=== PATIENT | female | born 1950 | race Caucasian/White ===

== ENCOUNTER → 2017-04-23 | Outpatient (CLI) | payer MEDICARE, OTHER ==
[2017-04-23 15:50] LABS: Sodium 131 mmol/L (137-145)
== END | disposition home or self-care (01) ==
LOC: LABWHC1 15:04
PROVIDERS: ATTEND Family Medicine
DX: R89.9 Unspecified abnormal finding in specimens from other organs, systems and tissues (principal)
CPT/HCPCS: 36415; 83930; 84295

== ENCOUNTER → 2017-05-04 | Outpatient (CLI) | payer MEDICARE, OTHER ==
[2017-05-04 14:44] LABS: Anion Gap 8 mmol/L; Blood Urea Nitrogen 16 mg/dL (7-17); Calcium 9.3 mg/dL (8.4-10.2); Carbon Dioxide 25 mmol/L (22-30); Chloride 98 mmol/L (98-107); Glucose 104 mg/dL (74-99); Non-African American GFR(MDRD) >60 (>60 ml/min/1.73 sqM); Sodium 131 mmol/L (137-145)
== END | disposition home or self-care (01) ==
LOC: LABWHC1 13:59
PROVIDERS: ATTEND Physician Assistant
DX: E87.1 Hypo-osmolality and hyponatremia (principal)
CPT/HCPCS: 36415; 80048

== ENCOUNTER → 2017-06-18 | Outpatient (CLI) | payer MEDICARE, OTHER ==
--- NOTE | 2017-06-22 08:17 | MM ---
Reason for exam: screening (asymptomatic). Last mammogram was performed 20 years ago. History: Patient is postmenopausal. Took estrogen for 10 years. Physical Findings: Nurse did not find any significant physical abnormalities on exam. MG 3D Screening Mammo W/Cad Bilateral CC and MLO view(s) were taken. Prior study comparison: June 01, 2016, mammogram. September 06, 2014, mammogram. The breast tissue is heterogeneously dense. This may lower the sensitivity of mammography. Previous mammotome biopsy in the left breast x 2. There is chronic nodularity in the left breast measuring 1.6cm at 8-9 o'clock. Some new increasing subtle grouped calcifications superior right breast. ASSESSMENT: Incomplete: need additional imaging evaluation, BI-RAD 0 RECOMMENDATION: Special view mammogram of the right breast. If lesion persists on supplemental views, image directed ultrasound is recommended. [facility] will attempt to contact patient to return for supplemental views and ultrasound if indicated.
== END | disposition home or self-care (01) ==
LOC: RADMAMWWP 14:54
PROVIDERS: ATTEND Obstetrics & Gynecology
DX: Z22.1 Carrier of other intestinal infectious diseases (principal)
CPT/HCPCS: 77063; G0202

== ENCOUNTER → 2017-09-07 | Outpatient (CLI) | payer MEDICARE, OTHER ==
[2017-09-07 10:15] LABS: HGB 13.9 gm/dL (11.4-16.0); MCH 30.9 pg (25.0-35.0); MCV 91.1 fL (80.0-100.0); Mean Platelet Volume 6.8; Platelet Count 349 k/uL (150-450); RDW 13.1 % (11.5-15.5); WBC 4.7 k/uL (3.8-10.6)
[2017-09-07 10:29] LABS: ALT 29 U/L (9-52); AST 31 U/L (14-36); Anion Gap 9 mmol/L; Blood Urea Nitrogen 15 mg/dL (7-17); Calcium 9.5 mg/dL (8.4-10.2); Carbon Dioxide 29 mmol/L (22-30); Chloride 96 mmol/L (98-107); Cholesterol 199 mg/dL (<200); Glucose 89 mg/dL (74-99); HDL Cholesterol 78 mg/dL (40-60); LDL Cholesterol,Calculated 92 mg/dL (0-99); Potassium 4.7 mmol/L (3.5-5.1); Sodium 134 mmol/L (137-145); Triglycerides 145 mg/dL (<150)
[2017-09-07 11:01] LABS: Appearance,Urine Cloudy (Clear); Bacteria,Urine Many /hpf; Bilirubin,Urine Negative (Negative); Blood,Urine Negative (Negative); Color,Urine Yellow; Glucose,Urine (UA) Negative (Negative); Ketones,Urine Negative (Negative); Leukocyte Esterase,Urine Negative (Negative); Mucus,Urine Occasional /hpf; Nitrite,Urine Negative (Negative); PH, Urine 6.5 (5.0-8.0); Protein,Urine Trace (Negative); RBC,Urine 1 /hpf (0-5); Specific Gravity,Urine 1.017 (1.001-1.035); Squamous Epithelial Cell,Urine 23 /hpf (0-4); Urobilinogen,Urine <2.0 mg/dL (<2.0); WBC,Urine 4 /hpf (0-5)
[2017-09-07 15:01] LABS: Vitamin D 25 Hydroxy 30.3 ng/mL (30.0-100.0)
[2017-09-07 15:21] LABS: Hepatitis C IgG Antibody Non-Reactive (Non-Reactive)
== END | disposition home or self-care (01) ==
LOC: LABWHC1 09:28
PROVIDERS: ATTEND Family Medicine
DX: Z00.01 Encounter for general adult medical examination with abnormal findings (principal); I10 Essential (primary) hypertension; E55.9 Vitamin D deficiency, unspecified
CPT/HCPCS: 36415; 80048; 80061; 81001; 82306; 84450; 84460; 85027; 86803

== ENCOUNTER → 2018-03-03 | Outpatient (CLI) | payer MEDICARE, OTHER | END | disposition home or self-care (01) | LOC: LABWHC1 15:13 | PROVIDERS: ATTEND Family Medicine | DX: Z53.9 Procedure and treatment not carried out, unspecified reason (principal) ==

== ENCOUNTER → 2018-03-04 | Outpatient (CLI) | payer MEDICARE, OTHER ==
[2018-03-04 13:55] LABS: ALT 30 U/L (9-52); AST 33 U/L (14-36); Albumin 4.1 g/dL (3.5-5.0); Alkaline Phosphatase 45 U/L (38-126); Anion Gap 10 mmol/L; Blood Urea Nitrogen 15 mg/dL (7-17); Calcium 9.3 mg/dL (8.4-10.2); Carbon Dioxide 23 mmol/L (22-30); Chloride 99 mmol/L (98-107); Glucose 81 mg/dL (74-99); Potassium 4.4 mmol/L (3.5-5.1); Sodium 132 mmol/L (137-145); Total Bilirubin 0.2 mg/dL (0.2-1.3); Total Protein 6.5 g/dL (6.3-8.2)
[2018-03-04 13:58] LABS: Partial Thromboplastin Time 22.9 sec (22.0-30.0); Prothrombin Time 10.2 sec (9.0-12.0)
[2018-03-04 14:09] LABS: Basophils % (A) 1 %; Eosinophils # (A) 0.3 k/uL (0-0.7); Eosinophils % (A) 5 %; HGB 12.8 gm/dL (11.4-16.0); Lymphocytes # (A) 1.4 k/uL (1.0-4.8); Lymphocytes % (A) 25 %; MCH 31.1 pg (25.0-35.0); MCHC 34.5 g/dL (31.0-37.0); MCV 90.1 fL (80.0-100.0); Mean Platelet Volume 7.2; Monocytes # (A) 0.3 k/uL (0-1.0); Monocytes % (A) 6 %; Neutrophils # (A) 3.4 k/uL (1.3-7.7); Neutrophils % (A) 62 %; Platelet Count 359 k/uL (150-450); RBC 4.11 m/uL (3.80-5.40); RDW 12.6 % (11.5-15.5); WBC 5.6 k/uL (3.8-10.6)
--- NOTE | 2018-03-04 14:22 | XR ---
EXAMINATION TYPE: XR chest 2V DATE OF EXAM: 03/04/2018 COMPARISON: NONE TECHNIQUE: PA and lateral views submitted. HISTORY: Preop lumbar surgery FINDINGS: The lungs are clear and there is no pneumothorax, pleural effusion, or focal pneumonia. No overt valeri lure. Arthropathy of the shoulders. Hypertrophic and degenerative change of the spine noted. IMPRESSION: 1. No acute process.
[2018-03-04 15:05] LABS: Appearance,Urine Cloudy (Clear); Bacteria,Urine Occasional /hpf; Bilirubin,Urine Negative (Negative); Blood,Urine Negative (Negative); Color,Urine Dark Yellow; Glucose,Urine (UA) Negative (Negative); Ketones,Urine Negative (Negative); Leukocyte Esterase,Urine Negative (Negative); Mucus,Urine Occasional /hpf; Nitrite,Urine Negative (Negative); Protein,Urine 1+ (Negative); RBC,Urine <1 /hpf (0-5); Specific Gravity,Urine 1.023 (1.001-1.035); Squamous Epithelial Cell,Urine 7 /hpf (0-4)
== END | disposition home or self-care (01) ==
LOC: LABWHC1 12:59
PROVIDERS: ATTEND Neurological Surgery
DX: Z01.818 Encounter for other preprocedural examination (principal); M46.1 Sacroiliitis, not elsewhere classified; I10 Essential (primary) hypertension; R06.02 Shortness of breath; R05 Cough; B95.62 Methicillin resistant Staphylococcus aureus infection as the cause of diseases classified elsewhere; R89.9 Unspecified abnormal finding in specimens from other organs, systems and tissues; Z01.812 Encounter for preprocedural laboratory examination
CPT/HCPCS: 36415; 71046; 80053; 81001; 83930; 85025; 85610; 85730; 87070

== ENCOUNTER → 2018-11-23 | Outpatient (CLI) | payer MEDICARE, OTHER ==
[2018-11-23 19:40] LABS: HGB 14.2 gm/dL (11.4-16.0); MCHC 33.7 g/dL (31.0-37.0); MCV 94.8 fL (80.0-100.0); Mean Platelet Volume 8.9; Platelet Count 356 k/uL (150-450); RBC 4.43 m/uL (3.80-5.40); RDW 13.1 % (11.5-15.5); WBC 6.9 k/uL (3.8-10.6)
[2018-11-24 10:34] LABS: Albumin 4.1 g/dL (3.80-4.90); Albumin/Globulin Ratio 2.41 (1.60-3.17); Anion Gap 9.2 mmol/L (4.00-12.00); Calcium 9.2 mg/dL (8.7-10.3); Carbon Dioxide 25.8 mmol/L (21.6-31.8); Globulin 1.7 g/dL (1.6-3.3); LDL Cholesterol,Calculated 84.6 mg/dL (0.0-131.0); Potassium 4.3 mmol/L (3.5-5.5); Total Bilirubin 0.4 mg/dL (0.2-1.2); Total Protein 5.8 g/dL (6.2-8.2); VLDL Calculation 36.4 mg/dL (5.00-40.00)
== END ==
LOC: LABWHC1 09:07
PROVIDERS: ATTEND Family Medicine
DX: Z00.01 Encounter for general adult medical examination with abnormal findings (principal); E78.2 Mixed hyperlipidemia; I10 Essential (primary) hypertension; K21.9 Gastro-esophageal reflux disease without esophagitis
CPT/HCPCS: 36415; 80053; 80061; 84443; 85027

== ENCOUNTER → 2021-10-17 | Outpatient (CLI) | payer MEDICARE ==
--- NOTE | 2021-10-18 03:54 | MR ---
EXAMINATION TYPE: MR shoulder RT wo con DATE OF EXAM: 10/17/2021 COMPARISON: None HISTORY: Right shoulder pain, injury S/P fall 2 mos ago. Multiplanar multi echo imaging of the right shoulder without contrast. There is a large shoulder joint effusion. There is retraction of the supraspinatus tendon. The AC sharifa nt is intact. There is narrowing of the subacromial joint space. The subscapularis tendon is intact. The biceps tendon is intact. The glenoid fidencio appear intact. There is some atrophy of the supraspina tus muscle. Infraspinatus tendon appears intact. There is no evidence of a fracture. IMPRESSION: Large rotator cuff tear with retraction of the supraspinatus tendon. Large shoulder joint effusion an d subdeltoid effusion.
== END | disposition home or self-care (01) ==
LOC: RADMRIMAIN 17:24
PROVIDERS: ATTEND Orthopaedic Surgery
DX: S46.011A Strain of muscle(s) and tendon(s) of the rotator cuff of right shoulder, initial encounter (principal); M25.411 Effusion, right shoulder; W19.XXXA Unspecified fall, initial encounter

== ENCOUNTER 2021-11-27 09:31 | Day surgery (SDC) | payer MEDICARE, OTHER ==
[2021-11-25 13:35] VITALS: BMI 28.1
--- NOTE | 2021-11-26 14:30 | HP ---
HISTORY AND PHYSICAL DATE OF SURGERY: 11/27/2021 Roslyn Case is a 71-year-old patient seen with progressive right shoulder pain. We discussed options for treatment. She elected to proceed with arthroscopy. Consent was obtained. PAST MEDICAL HISTORY: Hypertension, hyperlipidemia. PAST SURGICAL HISTORY: Carpal tunnel surgery, knee arthroscopy, lumbar spine surgery, hysterectomy. DAILY MEDICATIONS: Amlodipine, atenolol, lisinopril. ALLERGIES: AMOXIL, CODEINE, COMPAZINE. SOCIAL HISTORY: She denies tobacco use. PHYSICAL EVALUATION OF THE RIGHT SHOULDER: Flexion is 100 degrees. Abduction is 90 degrees. External rotation is 40 degrees with pain and weakness. There is tenderness along the anterolateral acromion and rotator cuff insertion. Impingement is positive at 80 degrees. Drop-arm sign is positive. Distal neurovascular exam is intact. Radiographs of the right shoulder revealed a type 3 acromion, evidence for acromioclavicular joint osteoarthritis and cystic changes of the tuberosity. MRI of the right shoulder revealed a large retracted rotator cuff tendon tear. IMPRESSION: 1. Right shoulder impingement with large rotator cuff tendon tear. 2. Right shoulder acromioclavicular joint osteoarthritis. 3. Hypertension. PLAN: Right shoulder arthroscopy with subacromial decompression, arthroscopic rotator cuff repair, Jerome procedure and debridement. MMODL / IJN: [id number] /
[~2021-11-27 09:31] MED LIST: DEXAMETHASONE SOD PHOSPHATE 4 MG/ML 1 ML VIAL IV ONE; IV FLUID CONTINUATION 1,000 ML IV ONE; LACTATED RINGERS 1,000 ML IV SCH; LIDOCAINE 1% (10MG/ML) FOR IV START INTRADERMA PRN; ONDANSETRON 4 MG/2 ML VIAL IVP ONE; ONDANSETRON 4 MG/2 ML VIAL IVP PRN
[2021-11-27] MEDS ORDERED: MIDAZOLAM 2 MG/2 ML VIAL IVP ONE (10:48)
[2021-11-27] MEDS ORDERED: LIDOCAINE 2% INJ 20 MG/ML (2 ML VIAL) ONE (12:17)
[2021-11-27] MEDS ORDERED: ROPIVACAINE 5 MG/ML 30 ML VIAL ONE (12:17)
[2021-11-27] MEDS ORDERED: SUCCINYLCHOLINE CHLORIDE 100 MG/5 ML SYR IV ONE (12:17)
[2021-11-27] MEDS ORDERED: PROPOFOL 10 MG/ML 20 ML VIAL IV ONE (12:17)
[2021-11-27] MEDS ORDERED: DEXAMETHASONE SOD PHOSPHATE 4 MG/ML 1 ML VIAL ONE (12:17)
[2021-11-27] MEDS ORDERED: fentaNYL (PF) 50 MCG/ML 2 ML AMP ONE (12:17)
--- NOTE | 2021-11-27 14:03 | P.OP ---
Date of Procedure: 11/27/21 Preoperative Diagnosis: Right shoulder impingement Postoperative Diagnosis: 1. Right shoulder massive retracted rotator cuff tendon tear 2. Right shoulder impingement 3. Right shoulder partial long head biceps tendon tear Procedure(s) Performed: 1. Right shoulder arthroscopic rotator cuff repair 2. Right shoulder arthroscopic subacromial decompression 3. Right shoulder arthroscopic biceps tenotomy Implants: 24.75 Arthrex swivel lock anchors Anesthesia: GETA, regional (Interscalene block) Surgeon: Gerardo Cortes Spooler Operator Automatic #1: Tyler Ramos Estimated Blood Loss (ml): 11 Pathology: none sent Condition: stable Disposition: PACU Indications for Procedure: 71-year-old patient seen with progressive right shoulder pain. After treatment options were discussed, she elected to proceed with arthroscopy. Operative Findings: see description of procedure Description of Procedure: Patient underwent an interscalene block by department of anesthesia. The patie nt was then taken to the operative suite. The patient underwent a general anesthetic by the department of anesthesia. The patient was placed into a lateral position and secured. There was appropriate padding of the bony prominence. Right shoulder was then prepped and draped in normal sterile orthopedic fashion. We placed the extremity in 10 pounds of longitudinal traction. A posterior incision was now made for a posterior working portal site. The trocar and cannula were inserted into the glenohumeral joint. Arthroscopy was initiated. Spinal needle was now inserted anteriorly, to ascertain the anterior working portal site. An incision was now made in that area, a trocar was inserted followed by a probe. There was significant partial tearing of the long head biceps tendon. There were grade 1 chondromalacia changes about the glenohumeral joint with no tears. The labrum was stable. I performed an arthroscopic biceps tenotomy. I again probe the labrum and it was stable. Instruments were now removed from the glenohumeral joint. Utilizing the posterior working portal site, the trocar and cannula were inserted into the subacromial space. Arthroscopy initiated. I made an incision 2 fingerbreadths lateral to the acromion. I introduced my trocar followed by my ArthroCare ablator. I now began ablating thick subacromial bursal tissue, which exposed the undersurface of the anterior acromion. There was diminished subacromial space. There was a very prominent anterior acromion. A motorized bur was introduced and a subacromial decompression was performed. I also excised some osteophytes off the inferior aspect of the distal clavicle. The AC joint was visualized and noted to be moderately arthritic. I did not think enough toward a Jerome procedure. I now turned my attention to the rotator cuff tendon tear. There was a massive retracted tear. Was retracted to the level of the glenoid. I could not reapproximate the tendon tear. I now began meticulously performing a release along the anterior middle and posterior aspects. I was able to mobilize the posterior portion of the tendon persona very difficult time mobilizing anterior portion of the tendon. At this point after spending of [place] of time mobilizing the tendon I began utilizing converging sutures anterior centrally to emerge the tendon. After utilizing 4 sutures I did converging tendon enough to barely pull the tendon along the anterior footprint. Posteriorly I could pull the tendon over the footprint. I now abraded the footprint with a motorized bur. With the assistance of Zaid BELTRÁN passed 2 everted mattress sutures anteriorly through good bites of rotator cuff tendon and then 2 everted mattress sutures posteriorly through good bites of rotator cuff tendon. I created an bakery worker conveyor line portal site off the lateral acromion. A partial anteriorly for insertion of an anchor. The 4 anterior limbs of suture were passed through the eyelet of a 4.75 Arthrex swivel lock anchor. I placed that eyelet into our pre-punch hole. I held it in position while Zaid BELTRÁN tensioned all 4 suture limbs and deployed the anchor with good fixation noted. I now placed a hole in the posterior aspect of the footprint for insertion of an anchor. I passed all 4 limbs of suture through the eyelet of a 4.75 Arthrex swivel lock anchor. I placed the eyelet into our pre-punch hole. I held that in position while Zaid BELTRÁN tensioned all 4 suture limbs and deployed the anchor with good fixation noted. All residual suture limbs were clipped. Posteriorly we had good compression along the nikki tprint. Anteriorly was just at the articular margin. The repair was stable. Instruments now removed from the portal sites. All portal sites were approximated with nylon suture. Sterile dressings were applied followed by a shoulder immobilizer. Tyler BELTRÁN assisted in this complex case. The patient was awakened, transferred to a bed, and taken to recovery in stable condition. The patient's prognosis is guarded given this massive tear.
[2021-11-27 14:05] VITALS: TEMP 97.2
[2021-11-27] MEDS: HYDROmorphone 0.5 MG/0.5 ML SYRINGE IVP PRN ×3 (14:25→14:48)
[2021-11-27 14:33] VITALS: RESP 16
[2021-11-27 16:20] VITALS: BP 116/72; PULSE 72
--- NOTE | 2021-11-27 19:21 | P.ANPRN ---
Procedure Note - Anesthesia - Nerve Block Performed Right Interscalene Single Time Out Performed: Yes Date of Procedure: 11/27/21 Procedure Start Time: 10:47 Procedure Stop Time: 10:51 Location of Patient: PreOp Indication: Acute Post-Operative Pain, Requested by Surgeon Sedation Type: Sedate with meaningful contact maintained Preparation: Sterile Prep Position: Supine Needle Types: Pajunk Needle Gauge: 21 Ultrasound used to visualize needle placement: Yes Ultrasound used to observe medication spread: Yes Blood Aspirated: No Pain Paresthesia on Injection Noted: No Resistance on Injection: Normal Image Stored and Saved: Yes Events: Uneventful and Well Tolerated (Ropivacaine 0.5% 20 mL plus dexamethasone 4 mg)
== END 2021-11-27 17:20 | disposition home or self-care (01) ==
LOC: OR 09:31
PROVIDERS: ATTEND Orthopaedic Surgery
DX: M75.111 Incomplete rotator cuff tear or rupture of right shoulder, not specified as traumatic (principal); M25.811 Other specified joint disorders, right shoulder; S46.111A Strain of muscle, fascia and tendon of long head of biceps, right arm, initial encounter; X58.XXXA Exposure to other specified factors, initial encounter; M94.211 Chondromalacia, right shoulder; M25.711 Osteophyte, right shoulder; I10 Essential (primary) hypertension; F32.A Depression, unspecified; K21.9 Gastro-esophageal reflux disease without esophagitis; Z98.891 History of uterine scar from previous surgery; Z98.890 Other specified postprocedural states; Z90.710 Acquired absence of both cervix and uterus; Z79.82 Long term (current) use of aspirin; Z79.899 Other long term (current) drug therapy; Z88.5 Allergy status to narcotic agent; Z88.0 Allergy status to penicillin; Z88.8 Allergy status to other drugs, medicaments and biological substances
CPT/HCPCS: 64415; 76942; 29826; 29827; C1713 ×2; C1894; J2250; J1100; J2405; J0690; J3010; J2795; J0330; J2704; J1170; J2001

== ENCOUNTER → 2022-03-06 | Outpatient (CLI) | payer MEDICARE, OTHER | END | disposition home or self-care (01) | LOC: LABPAT 15:09 | PROVIDERS: ATTEND Orthopaedic Surgery | DX: Z01.812 Encounter for preprocedural laboratory examination (principal); Z22.322 Carrier or suspected carrier of Methicillin resistant Staphylococcus aureus; M12.811 Other specific arthropathies, not elsewhere classified, right shoulder | CPT/HCPCS: 87070 ==

== ENCOUNTER 2022-03-31 10:50 | Day surgery (SDC) | payer MEDICARE, OTHER ==
--- NOTE | 2022-03-26 08:29 | P.HPOR ---
History of Present Illness H&P Date: 03/26/22 Chief Complaint: Right shoulder pain and weakness The patient is a 71-year-old [id number] retired female who presents with progressive right shoulder pain for the past year. She had undergone attempted rotator cuff repair in October 2021. She's having pain with any attempted overhead use and at night. She's tried rehabilitation along with medications with minimal relief. Review of Systems As per HPI Past Medical History Past Medical History: Hypertension, Osteoarthritis (OA) Additional Past Medical History / Comment(s): Diverticulitis, back problems, allergies, heartburn with certain foods, insomnia. History of Any Multi-Drug Resistant Organisms: None Reported Past Surgical History: Back Surgery, Section, Hysterectomy, Orthopedic Surgery, Tonsillectomy, Tubal Ligation Additional Past Surgical History / Comment(s): Bilateral carpal tunnel surgery, left breast benign biopsy X2, left knee arthroscopy. Right arthroscopic rotator cuff repair Past Anesthesia/Blood Transfusion Reactions: Postoperative Nausea & Vomiting (PONV) Additional Past Anesthesia/Blood Transfusion Reaction / Comment(s): "Sister slow to wake up." Past Psychological History: Depression Additional Psychological History / Comment(s): Mild depression. Smoking Status: Never smoker Past Alcohol Use History: None Reported Past Drug Use History: None Reported - Past Family History Sister(s) Family Medical History: Cancer Medications and Allergies Home Medications Medication Instructions Recorded Confirmed Type ALPRAZolam [Xanax] 0.5 tab PO DIRECTED PRN 07/12/17 11/27/21 History Aspirin 325 mg PO DAILY 07/12/17 11/25/21 History Betamethasone Dipropionate 1 applic TOPICAL DAILY PRN 07/12/17 11/27/21 History [Betamethasone Dipropionate 0.05%] Cyanocobalamin [Vitamin B-12] 500 mcg PO DAILY 07/12/17 11/25/21 History Cyclobenzaprine [Flexeril] 5 mg PO HS 07/12/17 11/27/21 History Ibuprofen [Motrin] 800 mg PO Q8HR PRN 07/12/17 11/25/21 History Ipratropium Hammond [Ipratropium 2 sprays PO DAILY PRN 07/12/17 11/27/21 History Hammond 0.03%] Multivitamins, Thera [Multivitamin 1 each PO DAILY 07/12/17 11/25/21 History (formulary)] Vits A,C,E/Lutein/Minerals 1 each PO DAILY 07/12/17 11/25/21 History [Ocuvite with Lutein Tablet] amLODIPine BESYLATE [Norvasc] 5 mg PO HS 07/12/17 11/27/21 History atenoloL [Tenormin] 50 mg PO BID 07/12/17 11/27/21 History calcium polycarbophiL [Fibercon] 625 mg PO DAILY 07/12/17 11/27/21 History diphenhydrAMINE [Benadryl] 25 mg PO HS PRN 07/12/17 11/27/21 History estradioL [Estrace] 1 mg PO Q72H 07/12/17 11/27/21 History lisinopriL [Zestril] 20 mg PO QAM 07/12/17 11/27/21 History Calcium Carbonate [Tums] 500 mg PO DIRECTED PRN 11/25/21 11/27/21 History Cholecalciferol [Vitamin D3 (25 50 mcg PO HS 11/25/21 11/25/21 History Mcg = 1000 Iu)] Melatonin [Melatonin ER] 10 mg PO HS 11/25/21 11/27/21 History HYDROcodone/APAP 7.5-325MG [[place] 1 each PO Q6HR PRN #28 tab 11/27/21 Rx 7.5] Allergies Allergy/AdvReac Type Severity Reaction Status Date / Time amoxicillin Allergy Rash/Hives Verified 11/27/21 09:57 codeine Allergy Unknown Verified 11/27/21 09:57 prochlorperazine Allergy Unknown Verified 11/27/21 09:57 [From Compazine] Physical Examination - Shoulder right Appearance: swelling Effusion grade: grade 1 Tenderness with palpation: anterior Pain: with abduction ROM: abduction: 60 degrees ROM: forward flexion: 60 degrees ROM: internal rotation: lower lumbar ROM: external rotation: 10 degrees Strength: abduction: 3/5 Strength: forward flexion: 3/5 Tests: internal impingement tests: positive Results The patient is well-developed well-nourished female proximally 4 foot 9, 130 pounds of mesomorphic habitus. HEENT exam is nonfocal. Neck is supple. Her distal neurovascular appears intact in the right upper extremity. - Diagnostic results Shoulder x-ray: image reviewed (3 views of the right shoulder obtained in the office show glenohumeral joint space narrowing along with diminished humeral head to acromion distance. An anchor is noted to be displaced laterally.) Assessment and Plan Assessment: Retracted right large rotator cuff tear with arthropathy History of right arthroscopic rotator cuff repair with re-tear Plan: I talked to the patient at length regarding her condition along with treatment options. At this point she's quite symptomatic and limited because of pain and weakness. After thorough discussion she opted to proceed with surgery. We'll plan to proceed with a right reverse total shoulder arthroplasty. Risks and benefits were discussed at length in layman's terms. Time with Patient: Less than 30
[~2022-03-31 10:50] MED LIST changes: +ACETAMINOPHEN TAB 500 MG TAB PO PRN; -IV FLUID CONTINUATION 1,000 ML IV ONE; -LACTATED RINGERS 1,000 ML IV SCH; -LIDOCAINE 1% (10MG/ML) FOR IV START INTRADERMA PRN; +MELOXICAM 7.5 MG TAB PO PRN; +MIDAZOLAM 2 MG/2 ML VIAL IV PRN; -ONDANSETRON 4 MG/2 ML VIAL IVP PRN; +TRANEXAMIC ACID IN NACL,ISO-OS 1,000 MG in SALINE 1 100ML.BAG IVPB PRN; +fentaNYL (PF) 50 MCG/ML 2 ML AMP IV PRN
[2022-03-31] MEDS: LACTATED RINGERS 1,000 ML IV SCH (11:19)
[2022-03-31] MEDS ORDERED: ACETAMINOPHEN TAB 500 MG TAB ONE (11:28)
--- NOTE | 2022-03-31 13:17 | P.ANPRN ---
Procedure Note - Anesthesia - Nerve Block Performed Right Interscalene Single Time Out Performed: Yes (1201) Date of Procedure: 03/31/22 Procedure Start Time: 12:01 Procedure Stop Time: 12:09 Location of Patient: PreOp Indication: Acute Post-Operative Pain, Dx/Pain Location (Right shoulder pain) Specifically requested for management of pain by DrMarc: Timmy Hooker Sedation Type: Sedate with meaningful contact maintained Preparation: Sterile Prep Position: Supine Catheter: None Needle Types: Pajunk Needle Gauge: 20, 21 Ultrasound used to visualize needle placement: Yes Ultrasound used to observe medication spread: Yes Injectate: 0.5% Ropivacaine (see comment for volume) (30cc and 4 mg of decadron) Blood Aspirated: No Pain Paresthesia on Injection Noted: No Resistance on Injection: Normal Image Stored and Saved: Yes Events: Uneventful and Well Tolerated
[2022-03-31] MEDS ORDERED: ROPIVACAINE 5 MG/ML 30 ML VIAL ONE (13:40)
[2022-03-31] MEDS ORDERED: ROCURONIUM 10 MG/ML (5 ML VIAL) IV ONE (13:40)
[2022-03-31] MEDS ORDERED: PROPOFOL 10 MG/ML 20 ML VIAL IV ONE (13:40)
[2022-03-31] MEDS ORDERED: SUGAMMADEX SODIUM 200 MG/2 ML SDV IV ONE (13:40)
[2022-03-31] MEDS ORDERED: fentaNYL (PF) 50 MCG/ML 2 ML AMP ONE (13:40)
[2022-03-31] MEDS ORDERED: SUCCINYLCHOLINE CHLORIDE 200 MG/10 ML VIAL IV ONE (13:40)
[2022-03-31] MEDS ORDERED: DEXAMETHASONE SOD PHOSPHATE 4 MG/ML 1 ML VIAL ONE (13:40)
[2022-03-31] MEDS ORDERED: ePHEDrine 50 MG/ML 1 ML VIAL ONE (13:40)
[2022-03-31] MEDS ORDERED: SODIUM CHLORIDE 0.9% (PF) 10 ML VIAL ONE (13:40)
[2022-03-31] MEDS ORDERED: LIDOCAINE 2% INJ 20 MG/ML (2 ML VIAL) ONE (13:40)
[2022-03-31] MEDS ORDERED: TRANEXAMIC ACID IN NACL,ISO-OS 1,000 MG/100 ML BAG ONE (13:40)
[2022-03-31] MEDS ORDERED: ceFAZolin 3,000 MG in SODIUM CHLORIDE 0.9% IRRIGATIO 3,000 ML IRRIGATION ONE (14:20)
[2022-03-31] MEDS ORDERED: HYDROcodone/APAP 5-325MG 1 EACH TAB PO PRN (15:37)
[2022-03-31] MEDS ORDERED: SENNOSIDES-DOCUSATE SODIUM 1 EACH TAB PO PRN (15:37)
[2022-03-31] MEDS ORDERED: HYDROmorphone 0.5 MG/0.5 ML SYRINGE IVP PRN ×2 (15:37)
[2022-03-31] MEDS ORDERED: LACTATED RINGERS 1,000 ML IV ONE (15:48)
--- NOTE | 2022-03-31 15:57 | P.OP ---
Date of Procedure: 03/31/22 Preoperative Diagnosis: Right rotator cuff arthropathy Postoperative Diagnosis: Same Procedure(s) Performed: Right reverse total shoulder arthroplasty Implants: Depuy Delta Xtend size 8 press-fit humeral stem, size 1 epiphysis, 38+3 articular surface, 38 mm glenosphere, standard baseplate. Anesthesia: [facility] Surgeon: Timmy Hooker Supervisor Elementary Education #1: Reymundo Cruz Estimated Blood Loss (ml): 100 Pathology: other (Humeral head) Condition: stable Disposition: PACU Indications for Procedure: The patient is a 71-year-old female presents with progressive right shoulder pain and weakness despite conservative measures. She had undergone attempted arthroscopic rotator cuff repair with persistence of her symptoms. A discussion of the risks and benefits of operative intervention versus continued conservative measures was made with patient. She opted to proceed with surgery. Operative risks to include infection, neurovascular injury, development of blood clots, fracture, instability, possible need for subsequent procedures was discussed. Informed consent was obtained. Operative Findings: As below Description of Procedure: The patient was brought to the operating room, and after induction of general anesthesia was placed in a beachchair position. The bony prominences were appropriately padded. I examined the right shoulder. The right upper extremity was prepped and draped in normal fashion. The bony outlines the coracoid process, distal clavicle, and acromion were outlined with a skin marker. A pulse centimeter deltopectoral incision was made lateral to the coracoid process. Skin was incised sharply. Subcutaneous tissues were divided bluntly. Electrocautery was used for hemostasis. The cephalic vein was identified and gently retracted laterally with the deltoid. The deltopectoral was bluntly developed. Subdeltoid adhesions were then released. The self- retaining retractor was placed. The conjoined tendon was retracted medially and the deltoid laterally. The biceps was identified. Its sheath was opened. A biceps tenotomy was performed along the remaining tendon did retract distally. Pseudocapsule was excised. A large retracted rotator cuff tear was noted involving the supraspinatus/infraspinatus/teres minor. The subscapularis was peeled off the lesser tuberosity and tagged with #2 Ethibond suture. The head was then exposed. The shoulder was dislocated. A starting hole was made in line with the humeral shaft. The canal was reamed by hand up to size 8. There was good distal chatter. The cutting guide was then placed. I planned on 20 of retroversion. The humeral head cut was then made. The bone was removed in one fragment. Residual inferomedial osteophytes were removed flush with the [place] cortical bone. Attention was then paid towards preparing the glenoid. An anterior and posterior retractors placed. The labrum was released from the 12-6 o'clock position. Remaining biceps was removed as well. A guidepin was placed in the inferior aspect of the glenoid with the guide slightly tilting inferior. The reamer was used down to a bleeding bony surface. The central peg hole was drilled. The standard baseplate was inserted with good purchase. Inferior and superior locking screws of the appropriate length were placed. Good purchase was obtained. The 38 mm glenosphere was inserted over a guidewire. This was fully seated. Care was taken to avoid any soft tissue interposition. Attention was then paid towards preparing the proximal humerus. The appropriate broach was placed and 20 of retroversion and was fully seated. An eccentric size 1 epiphyseal reamer was utilized. A size 8 stem with a size 1 epiphysis was placed and 20 of retroversion. Trial reduction was obtained with a 38 mm +3 articular surface. The shoulder was taken through range of motion. The shoulder was felt to be stable in flexion and extension with internal and external rotation. I felt there was adequate sikh of soft tissue tension judging off the conjoined tendon. The shoulder was gently dislocated. The trial components were then removed. The final size 8 press-fit stem along with a size 1 epiphysis was fully seated. There was good rotational stability. The 38 mm + 3 articular surface was impacted. The shoulder again was gently reduced and taken through range of motion. Again it was felt to be stable in all planes. Pulsatile lavage was utilized. The subscapularis was a attached to the lesser tuberosity with #2 Ethibond suture. The deltopectoral interval was closed with interrupted 2-0 Vicryl sutures. The skin was reapproximated with 3-0 subcuticular Prolene suture. Steri-Strips were applied. A sterile dressing was applied. A sling was placed. The patient was awoken from general anesthesia and transferred to recovery room in good condition. Blood loss was estimated at 100 mL. No complications were incurred. Sponge and needle counts were correct at the end the case. Reymundo BELTRÁN assisted during the major components of the case to include exposure, glenoid and humeral preparation, implantation, and closure.
--- NOTE | 2022-03-31 16:47 | XR ---
EXAMINATION TYPE: XR shoulder limited RT DATE OF EXAM: 03/31/2022 COMPARISON: 02/09/2022 HISTORY: Surgery TECHNIQUE: FINDINGS: A single view shows a right shoulder prosthesis. Components appear in good position. IMPRESSION: No complicating process seen.
[2022-03-31] MEDS ORDERED: HYDROmorphone 0.5 MG/0.5 ML SYRINGE IVP ONE (17:22)
[2022-03-31] MEDS ORDERED: SODIUM CHLORIDE 0.9% 1,000 ML IV ONE (18:53)
[2022-03-31 20:17] VITALS: RESP 18
[2022-03-31] MEDS ORDERED: diphenhydrAMINE 25 MG CAP PO PRN (23:03)
--- NOTE | 2022-03-31 23:03 | P.CONS ---
History of Present Illness - Reason for Consult Consult date: 03/31/22 - History of Present Illness The patient is a 71-year-old female with a PMH of hypertension who was admitted for an elective right shoulder total arthroplasty. The patient underwent the procedure earlier today were no immediate postoperative competitions. She reported excellent control of her pain at the time of interview, rated at a 1 out of 10 at rest. She denied any additional complaints. Reports she has not having gotten out of bed as of yet and has not had a bowel movement or pass flatus. Reports compliance with her medications at home. Denied experiencing chest discomfort, shortness of breath, fever, chills, cough, nausea, vomiting, abdominal pain, diarrhea. Review of systems: Pertinent positives and negatives as discussed in HPI, a complete review of systems was performed and all other systems are negative. Physical examination: General: non toxic, no distress, appears at stated age, normal weight Derm: no unusual rashes/lesions, warm Head: atraumatic, normocephalic, symmetric Eyes: EOMI, no lid lag, anicteric sclera, pupils equal round reactive to light ENT: Nose and ears atraumatic Neck: No cervical lymphadenopathy, trachea midline, supple Mouth: no lip lesion, mucus membranes moist Cardiovascular: S1S2 reg, no murmur, positive dorsalis pedis pulse bilateral, no edema Lungs: CTA bilateral, no rhonchi, no rales, no accessory muscle use Abdominal: soft, nontender to palpation, no guarding Ext: muscle strength 5 out of 5 in all extremities grossly except the right lower extremity postsurgical, no gross muscle atrophy, no contractures, right shoulder dressing in place Neuro: CN II-XI grossly intact, no gross focal neuro deficits Psych: Alert, oriented, appropriate affect Assessment/plan Chronic conditions: Hypertension -Continue with home meds Status post right shoulder total arthroplasty -Defer management including pain control and DVT prophylaxis to the primary surgery service We appreciate this opportunity to be involved in this patient's care. We will follow the patient with you. For any further questions, please not hesitate to contact the sound inpatient team. Past Medical History Past Medical History: Hypertension, Osteoarthritis (OA) Additional Past Medical History / Comment(s): Diverticulitis, back problems, allergies, heartburn with certain foods, insomnia. History of Any Multi-Drug Resistant Organisms: None Reported Past Surgical History: Back Surgery, Section, Hysterectomy, Orthopedic Surgery, Tonsillectomy, Tubal Ligation Additional Past Surgical History / Comment(s): Bilateral carpal tunnel surgery, left breast benign biopsy X2, left knee arthroscopy. Right arthroscopic rotator cuff repair Past Anesthesia/Blood Transfusion Reactions: Postoperative Nausea & Vomiting (PONV) Additional Past Anesthesia/Blood Transfusion Reaction / Comm: "Sister slow to wake up." Past Psychological History: Depression Additional Psychological History / Comment(s): Mild depression. Smoking Status: Never smoker Past Alcohol Use History: None Reported Additional Past Alcohol Use History / Comment(s): every 3-4 years Past Drug Use History: None Reported - Past Family History Sister(s) Family Medical History: Cancer Medications and Allergies Home Medications Medication Instructions Recorded Confirmed Type Aspirin 81 mg PO DAILY 07/12/17 03/27/22 History Betamethasone Dipropionate 1 applic TOPICAL DAILY PRN 07/12/17 03/27/22 History [Betamethasone Dipropionate 0.05%] Cyanocobalamin [Vitamin B-12] 500 mcg PO DAILY 07/12/17 03/27/22 History Cyclobenzaprine [Flexeril] 5 mg PO HS 07/12/17 03/31/22 History Ibuprofen [Motrin] 800 mg PO Q8HR PRN 07/12/17 03/27/22 History Ipratropium [place] [Ipratropium 2 sprays PO DAILY PRN 07/12/17 03/31/22 History [place] 0.03%] Multivitamins, Thera [Multivitamin 1 each PO DAILY 07/12/17 03/27/22 History (formulary)] Vits A,C,E/Lutein/Minerals 1 each PO DAILY 07/12/17 03/27/22 History [Ocuvite with Lutein Tablet] amLODIPine BESYLATE [Norvasc] 5 mg PO HS 07/12/17 03/31/22 History atenoloL [Tenormin] 50 mg PO BID 07/12/17 03/31/22 History calcium polycarbophiL [Fibercon] 625 mg PO DAILY 07/12/17 03/31/22 History diphenhydrAMINE [Benadryl] 25 mg PO HS PRN 07/12/17 03/31/22 History estradioL [Estrace] 1 mg PO Q72H 07/12/17 03/31/22 History lisinopriL [Zestril] 20 mg PO QAM 07/12/17 03/31/22 History Calcium Carbonate [Tums] 500 mg PO DIRECTED PRN 11/25/21 03/31/22 History Cholecalciferol [Vitamin D3 (25 50 mcg PO HS 11/25/21 03/31/22 History Mcg = 1000 Iu)] Melatonin [Melatonin ER] 15 mg PO HS 11/25/21 03/31/22 History Calcium Carbonate [Calcium] 600 mg PO DAILY 03/27/22 03/27/22 History Cholecalciferol (Vitamin D3) 125 mcg PO DAILY 03/27/22 03/27/22 History [Vitamin D3 (125 MCG = 5,000 IU)] HYDROcodone/APAP 7.5-325MG [[place] 1 each PO Q8H PRN 03/27/22 03/31/22 History 7.5] Allergies Allergy/AdvReac Type Severity Reaction Status Date / Time amoxicillin Allergy Rash/Hives Verified 03/31/22 11:23 codeine Allergy Unknown Verified 03/31/22 11:23 prochlorperazine Allergy Unknown Verified 03/31/22 11:23 [From Compazine] Physical Exam Vitals: Vital Signs Temp Pulse Pulse Resp BP BP Pulse Ox 03/31/22 19:16 97.4 F L 85 18 111/69 91 L 03/31/22 18:15 84 16 100/61 92 L 03/31/22 17:45 69 16 98/58 93 L 03/31/22 17:40 84 16 100/59 94 L 03/31/22 17:15 73 16 114/63 94 L 03/31/22 16:43 77 16 107/55 94 L 03/31/22 16:28 72 16 96/55 92 L 03/31/22 16:13 81 16 100/56 93 L 03/31/22 15:58 97.1 F L 77 16 105/55 93 L 03/31/22 12:15 65 16 108/54 95 03/31/22 11:24 97.3 F L 69 18 140/65 93 L Intake and Output 03/31/22 03/31/22 04/01/22 14:59 22:59 06:59 Intake Total 1051 875 Output Total 100 Balance 1051 775 Intake: IV 1051 875 Output: Estimated Blood Loss 100 Other: Voiding Method Toilet Weight 55.9 kg 55.9 kg
[2022-03-31] MEDS ORDERED: MELATONIN 5 MG TABLET PO SCH (23:15)
[2022-03-31] MEDS: SODIUM CHLORIDE 0.9% 1,000 ML IV SCH (23:15)
[2022-04-01] MEDS: LACTATED RINGERS 1,000 ML IV SCH (07:02)
[2022-04-01] MEDS: HYDROcodone/APAP 5-325MG 1 EACH TAB PO PRN ×2 (07:21→12:22)
[2022-04-01] MEDS: SODIUM CHLORIDE 0.9% 1,000 ML IV SCH (07:25)
[2022-04-01] MEDS ORDERED: ASPIRIN 325 MG TAB PO SCH (09:00)
[2022-04-01] MEDS ORDERED: lisinopriL 20 MG TAB PO SCH (09:00)
[2022-04-01] MEDS ORDERED: atenoloL 50 MG TAB PO SCH (09:00)
--- NOTE | 2022-04-01 10:15 | P.DS ---
Providers Date of admission: 03/31/2022 Expected date of discharge: 04/01/22 Attending physician: Timmy Hooker Consults: 03/31/22 15:37 Consult Physician Routine Consulting Provider: Sejal Julian Consult Reason/Comments: s/p reverse right total shoulder arthroplasty Do you want consulting provider notified?: Yes Primary care physician: [facility] Course: Date of admission: 03/31/2022 Date of discharge: 04/01/2022 Admission diagnosis: Right rotator cuff arthropathy Discharge diagnosis: Same Attending physician: Dr. Hooker Surgical procedures: Reverse right total shoulder arthroplasty Brief history: Patient is a 71-year-old female with a history of right rotator cuff arthropathy. At this point patient has failed conservative treatment measures and has opted to proceed with a elective reverse right total shoulder arthroplasty. Hospital course: Details of patient's surgery can be found in operative report. Patient tolerated the procedure well and was subsequently transported to orthopedic floor. Patient's orthopeidc and medical care was provided daily. Patient had daily laboratory tests performed for evaluation of overall blood counts. Patient had daily physical therapy to include strengthening range of motion as well as education with walker ambulation. Patient was treated with aspirin for their postoperative DVT prophylaxis during their inpatient stay. Patient was noted to have a relatively uneventful postoperative course. Patient reported satisfactory pain control with oral pain medications by postoperative day 1. Patient showed satisfactory progress with physical therapy. Patient moved steadily through the program and had no difficulty meeting the goals by postoperative day 1. Given patient's otherwise satisfactory course and having met physical therapy goals, plan is to discharge patient home with health services on postoperative day on. Discharge condition/disposition: Patient will be discharged home with health services in stable condition. Discharge medications: Instructions are given on resumption of patient's normal daily medications per primary care recommendation, in addition patient will be p rescribed Tramadol 100 mg; Vistaril; Colace; patient has aspirin 325 mg at home - to take 325 mg daily x 3 weeks. Orthopedic Discharge Instructions: 1. Wound care and infection precautions, keep incision dry and covered while showering, no lotions, creams, moisturizers. No soaking, pools, hot tubs. Do not scrub over incision. 2. Non-weight bearing right upper extremity 3. Ice when necessary. Do not exceed 20 minutes per hour with ice pack. 4. Maintain right upper extremity in sling until follow up appt in office in 2 weeks 5. Pain meds and anticoagulants per prescription. 6. Pain medication has potential to cause constipation. Increase oral fluid and fiber intake. Contact primary care provider if you have not had a bowel movement within 48 hours after discharge. 7. No anti-inflammatory medication until discussed at first post operative visit, this including Motrin, Aleve, Mobic, Diclofenac 8. Follow up in office at 2 weeks postop with Zaid Ramos PA-C / Reymundo Cruz PA-C 9. Follow up with your primary care doctor 7-10 days after discharge. 10. Contact [facility] with any questions, . Keep dressing clean, dry, intact. While showering, cover dressing with Saran wrap. Keep dressing on until follow-up with in office at 2 weeks. Medications: Tramadol 100 mg; Vistaril; Colace; patient has aspirin 325 mg at home - to take 325 mg daily x 3 weeks. Assessment: Right Rotator cuff arthropathy Procedures: Reverse right total shoulder arthroplasty Patient Condition at Discharge: Good Plan - Discharge Summary Discharge Rx Participant: Yes New Discharge Prescriptions: No Action diphenhydrAMINE [Benadryl] 25 mg PO HS PRN PRN Reason: Allergic Reaction Vits A,C,E/Lutein/Minerals [Ocuvite with Lutein Tablet] 1 each PO DAILY Aspirin 81 mg PO DAILY Multivitamins, Thera [Multivitamin (formulary)] 1 each PO DAILY calcium polycarbophiL [Fibercon] 625 mg PO DAILY Cyclobenzaprine [Flexeril] 5 mg PO HS Betamethasone Dipropionate [Betamethasone Dipropionate 0.05%] 1 applic TOPICAL DAILY PRN PRN Reason: Allergy Symptoms Ipratropium [place] [Ipratropium [place] 0.03%] 2 sprays PO DAILY PRN PRN Reason: Allergy Symptoms Ibuprofen [Motrin] 800 mg PO Q8HR PRN PRN Reason: Pain estradioL [Estrace] 1 mg PO Q72H amLODIPine BESYLATE [Norvasc] 5 mg PO HS lisinopriL [Zestril] 20 mg PO QAM atenoloL [Tenormin] 50 mg PO BID Cyanocobalamin [Vitamin B-12] 500 mcg PO DAILY Cholecalciferol [Vitamin D3 (25 Mcg = 1000 Iu)] 50 mcg PO HS Calcium Carbonate [Tums] 500 mg PO DIRECTED PRN PRN Reason: Heartburn Melatonin [Melatonin ER] 15 mg PO HS Cholecalciferol (Vitamin D3) [Vitamin D3 (125 MCG = 5,000 IU)] 125 mcg PO DAILY Calcium Carbonate [Calcium] 600 mg PO DAILY HYDROcodone/APAP 7.5-325MG [[place] 7.5] 1 each PO Q8H PRN PRN Reason: Pain Discharge Medication List Aspirin 81 mg PO DAILY 07/12/17 [History] Betamethasone Dipropionate [Betamethasone Dipropionate 0.05%] 1 applic TOPICAL DAILY PRN 07/12/17 [History] Cyanocobalamin [Vitamin B-12] 500 mcg PO DAILY 07/12/17 [History] Cyclobenzaprine [Flexeril] 5 mg PO HS 07/12/17 [History] Ibuprofen [Motrin] 800 mg PO Q8HR PRN 07/12/17 [History] Ipratropium [place] [Ipratropium [place] 0.03%] 2 sprays PO DAILY PRN 07/12/17 [History] Multivitamins, Thera [Multivitamin (formulary)] 1 each PO DAILY 07/12/17 [History] Vits A,C,E/Lutein/Minerals [Ocuvite with Lutein Tablet] 1 each PO DAILY 07/12/17 [History] amLODIPine BESYLATE [Norvasc] 5 mg PO HS 07/12/17 [History] atenoloL [Tenormin] 50 mg PO BID 07/12/17 [History] calcium polycarbophiL [Fibercon] 625 mg PO DAILY 07/12/17 [History] diphenhydrAMINE [Benadryl] 25 mg PO HS PRN 07/12/17 [History] estradioL [Estrace] 1 mg PO Q72H 07/12/17 [History] lisinopriL [Zestril] 20 mg PO QAM 07/12/17 [History] Calcium Carbonate [Tums] 500 mg PO DIRECTED PRN 11/25/21 [History] Cholecalciferol [Vitamin D3 (25 Mcg = 1000 Iu)] 50 mcg PO HS 11/25/21 [History] Melatonin [Melatonin ER] 15 mg PO HS 11/25/21 [History] Calcium Carbonate [Calcium] 600 mg PO DAILY 03/27/22 [History] Cholecalciferol (Vitamin D3) [Vitamin D3 (125 MCG = 5,000 IU)] 125 mcg PO DAILY 03/27/22 [History] HYDROcodone/APAP 7.5-325MG [Omega 7.5] 1 each PO Q8H PRN 03/27/22 [History] Follow up Appointment(s)/Referral(s): Reymundo Cruz, DEYVI [PHYSICIAN TILE DESIGNER] - 2 Weeks Activity/Diet/Wound Care/Special Instructions: Orthopedic Discharge Instructions: 1. Wound care and infection precautions, keep incision dry and covered while showering, no lotions, creams, moisturizers. No soaking, pools, hot tubs. Do not scrub over incision. 2. Non-weight bearing right upper extremity 3. Ice when necessary. Do not exceed 20 minutes per hour with ice pack. 4. Maintain right upper extremity in sling until follow up appt in office in 2 weeks 5. Pain meds and anticoagulants per prescription. 6. Pain medication has potential to cause constipation. Increase oral fluid and fiber intake. Contact primary care provider if you have not had a bowel movement within 48 hours after discharge. 7. No anti-inflammatory medication until discussed at first post operative vis it, this including Motrin, Aleve, Mobic, Diclofenac 8. Follow up in office at 2 weeks postop with Zaid Ramos PA-C / Reymundo Cruz PA-C 9. Follow up with your primary care doctor 7-10 days after discharge. 10. Contact [facility] with any questions, . Keep dressing clean, dry, intact. While showering, cover dressing with Saran wrap. Keep dressing on until follow-up with in office at 2 weeks. Medications:
[2022-04-01] MEDS: hydrOXYzine pamoate 25 MG CAP PO PRN ×2 (10:35→17:21)
--- NOTE | 2022-04-01 10:46 | P.PN ---
Subjective Progress Note Date: 04/01/22 Principal diagnosis: Right rotator cuff arthropathy Patient was seen at bedside this morning with sling to right upper extremity. Patient says she has urinated since surgery yesterday. Patient says she has been up walking around the room as well. Patient says she has been using sling as instructed. Patient says she has not had bowel movement since surgery. Patient says he does have at home who can help her with recovery. Patient says she is looking forward to going home. Patient states most of her pain is surrounding her shoulder. Patient says she has taken [employer] for many years and feels that it has not helped control her pain very well since surgery. Patient denies chest pain, fever, shortness of breath, nausea, change in vision, loss of bowel/bladder control. Objective - Vital Signs Vital signs: Vital Signs Temp 97.6 F 04/01/22 02:03 Pulse 84 04/01/22 07:25 Resp 18 04/01/22 08:31 BP 105/61 04/01/22 07:25 Pulse Ox 89 L 04/01/22 07:25 FiO2 Intake & Output 03/31/22 04/01/22 04/01/22 18:59 06:59 18:59 Intake Total 1926 546 Output Total 100 Balance 1826 546 Weight 55.9 kg 55.9 kg Intake: IV 1926 Oral 546 Output: Estimated Blood Loss 100 Other: Voiding Method Toilet Toilet # Voids 2 1 - Exam Right upper extremity: Incision is clean, dry, and intact. The surgical dressing is in good condition. There is minimal soft tissue swelling and ecchymosis surrounding the medial and lateral aspects of the incision. Calf is soft, no tenderness with palpation. Plantar flexion, dorsiflexion, EHL, FHL are intact. Sensory exam to light touch throughout the extremity is intact, dorsal pedis pulses 2+. Radial pulse intact bilaterally. Sensation is equal, symmetric, bilaterally intact in upper extremities. Assessment and Plan Assessment: 1. Right rotator cuff arthropathy - Postoperative day 1 status post reverse right total shoulder arthroplasty Plan: 1. Right rotator cuff arthropathy - reverse right total shoulder arthroplasty performed yesterday, 03/31/2022. Patient stable at bedside this morning with sling to right upper extremity. Plan for discharge home today with health services 2. Appreciate medical management 3. Pain management - Going home with Tramadol and Vistaril 4. DVT ppx - Aspirin 325 mg daily x 3 weeks 5. GI ppx - Colace 6. PT/OT - NWB LUE; maintain RUE in sling 7. Encourage incentive spirometer use 8. Discharge planning - Plan for discharge home today with health services Time with Patient: Less than 30
--- NOTE | 2022-04-01 10:49 | P.PN ---
Subjective Progress Note Date: 04/01/22 Hospital course: Patient is a very pleasant 71-year-old female with a past medical history of hypertension. She is currently admitted to the hospital status post right total shoulder arthroplasty completed by Dr. Hooker. We have been consulted for medical management throughout patient's hospitalization. Physical exam: Patient seen and fully evaluated at bedside this morning. Patient report throbbing pain in right shoulder continued, orthopedic surgery team aware and making medication changes. Patient has sling to right arm in place . She denies having any numbness, tingling, or weakness to distal right arm or hand. Patient denies having any headache, lightheadedness, dizziness, chest pain, palpitations, nausea, vomiting, or any other complaints at this time. Vital si gns stable BP 105/61, heart rate 84, respiratory rate 18, and SpO2 of 91% on room air. Medically, patient is stable for discharge pending morning lab results as CBC is currently pending. Vital signs reviewed and stable. General: Nontoxic, no distress and appears stated age. Derm: Skin warm and dry, normal coloration for ethnicity. Head: Atraumatic, normocephalic and symmetric. Eyes: EOMs intact, no lid lag, and anicteric sclera Mouth: no lip lesions, mucus membranes moist Cardiovascular: regular rate and rhythm with normal S1S2, no murmur, positive posterior tibial pulses bilaterally, and cap refill < 2 seconds. Lungs: Respirations even, regular, and unlabored on room air. Lungs CTA bilaterally, no rhonchi, no rales, no wheezing, and no accessory muscle usage. Abdominal: soft, nontender to palpation, no guarding, no appreciable organomegaly Ext: Sensation and movement intact. No gross muscle atrophy, no edema, no contractures right arm in sling. Patient continues to have movement and sensation in right elbow, wrist, hand and fingers and denies any numbness. Radial pulse easily palpated and cap refill less than 2 seconds. Neuro: Speech clear, face symmetrical and CN II-XII grossly intact with no noted focal neuro deficits Psych: Alert and oriented to person, place, time, and situation. Appropriate and pleasant affect. Assessment and Plan of Care: Status post right total shoulder arthroplasty -Postop day 1 -Management per primary admitting orthopedic surgery team including pain management, DVT prophylaxis, and PT/OT. -Currently patient using DVT prophylaxis with aspirin. Hypertension -Monitor vital signs and continue daily medication regimen with atenolol, Norvasc, and lisinopril. Thank you for allowing us to participate in the care of this pleasant patient. Do not hesitate to contact us with questions. Someone can be reached from the [facility] hospitalist group all hours of the day at [phone] or via [employer]. I reviewed the documentation as provided by the CECILLE above, who is the original author of this note. I agree with the documented assessment and plan, with the following changes: none Objective - Vital Signs Vital signs: Vital Signs Temp 97.6 F 04/01/22 02:03 Pulse 84 04/01/22 07:25 Resp 18 04/01/22 08:31 BP 105/61 04/01/22 07:25 Pulse Ox 89 L 04/01/22 07:25 FiO2 Intake & Output 03/31/22 04/01/22 04/01/22 18:59 06:59 18:59 Intake Total 1926 546 Output Total 100 Balance 1826 546 Weight 55.9 kg 55.9 kg Intake: IV 1926 Oral 546 Output: Estimated Blood Loss 100 Other: Voiding Method Toilet Toilet # Voids 2 1 - Labs CBC & Chem 7: 04/01/22 06:32
[2022-04-01 11:09] LABS: Basophils # (A) 0.01 X 10*3/uL (0.00-0.10); Basophils % (A) 0.1 %; Eosinophils # (A) 0 X 10*3/uL (0.04-0.35); Eosinophils % (A) 0 %; HCT 27.7 % (37.2-46.3); HGB 9.6 g/dL (12.0-15.0); Immature Grans, Automated 0.4 %; Lymphocytes # (A) 0.62 X 10*3/uL (0.90-5.00); Lymphocytes % (A) 5.5 %; MCH 31.5 pg (27.0-32.0); MCHC 34.7 g/dL (32.0-37.0); MCV 90.8 fL (80.0-97.0); Monocytes # (A) 0.64 X 10*3/uL (0.20-1.00); Monocytes % (A) 5.7 %; NRBC Per 100 WBC 0 /100 WBCS (0.0-0.0); Neutrophils # (A) 9.86 X 10*3/uL (1.80-7.70); Neutrophils % (A) 88.3 %; Platelet Count 272 X 10*3/uL (140-440); RBC 3.05 X 10*6/uL (4.10-5.20); WBC 11.18 X 10*3/uL (4.50-10.00)
[2022-04-01 13:50] VITALS: BP 118/66; PULSE 74; TEMP 98.2
[2022-04-01] MEDS ORDERED: traMADol 50 MG TAB PO SCH (16:00)
[2022-04-01] MEDS ORDERED: HYDROcodone/APAP 7.5-325MG 1 EACH TAB PO PRN (16:51)
[2022-04-01] MEDS ORDERED: amLODIPine 5 MG TAB PO SCH (21:00)
== END 2022-04-01 17:54 | disposition home health service (06) ==
LOC: OR 10:50 → 4SSUR 15:46 → OR 04-01 17:54
PROVIDERS: ATTEND Orthopaedic Surgery
DX: M75.121 Complete rotator cuff tear or rupture of right shoulder, not specified as traumatic (principal); M25.711 Osteophyte, right shoulder; G89.18 Other acute postprocedural pain; M25.511 Pain in right shoulder; M19.90 Unspecified osteoarthritis, unspecified site; I10 Essential (primary) hypertension; R53.1 Weakness; K57.92 Diverticulitis of intestine, part unspecified, without perforation or abscess without bleeding; R12 Heartburn; R11.2 Nausea with vomiting, unspecified; G47.00 Insomnia, unspecified; F32.9 Major depressive disorder, single episode, unspecified; Z80.9 Family history of malignant neoplasm, unspecified; Z98.890 Other specified postprocedural states; Z90.710 Acquired absence of both cervix and uterus; Z90.89 Acquired absence of other organs; Z47.89 Encounter for other orthopedic aftercare; Z98.51 Tubal ligation status; Z87.39 Personal history of other diseases of the musculoskeletal system and connective tissue; Z79.82 Long term (current) use of aspirin; Z88.0 Allergy status to penicillin
CPT/HCPCS: 23472; 64415; 76942; 85025; 73020; C1776; J2250; J1100; J0690 ×3; J2405; J1170; 88300

== ENCOUNTER → 2023-01-12 | Outpatient (CLI) | payer MEDICARE, OTHER ==
[2023-01-12 15:51] LABS: Basophils # (A) 0.06 X 10*3/uL (0.00-0.10); Basophils % (A) 0.8 %; Eosinophils # (A) 0.48 X 10*3/uL (0.04-0.35); Eosinophils % (A) 6.3 %; HGB 13.8 d/dL (12.0-15.0); Lymphocytes # (A) 1.48 X 10*3/uL (0.90-5.00); Lymphocytes % (A) 19.4 %; MCH 30.4 pg (27.0-32.0); MCHC 32.9 d/dL (32.0-37.0); MCV 92.5 FL (80.0-97.0); Mean Platelet Volume 9.8 FL (9.5-12.2); Monocytes # (A) 0.63 X 10*3/uL (0.20-1.00); Monocytes % (A) 8.3 %; NRBC Per 100 WBC 0 X 10*3/uL (0.00-0.01); Neutrophils # (A) 4.95 X 10*3/uL (1.80-7.70); Neutrophils % (A) 64.9 %; Platelet Count 404 X 10*3/uL (140-440); RBC 4.54 X 10*6/uL (4.10-5.20); RDW 12.7 % (11.5-14.5); WBC 7.62 X 10*3/uL (4.50-10.00)
[2023-01-12 15:55] LABS: ALT 20 U/L (8-44); AST 21 U/L (13-35); Blood Urea Nitrogen 20.8 mg/dL (9.0-27.0); Calcium 10.2 mg/dL (8.7-10.3); Carbon Dioxide 26.2 mmol/L (21.6-31.8); Chloride 94 mmol/L (96-109); Chol/HDL Ratio 2.59 Ratio; Glucose 87 mg/dL (70-110); LDL Cholesterol,Calculated 107.2 mg/dL (0.0-131.0); Potassium 4.6 mmol/L (3.5-5.5); Sodium 133 mmol/L (135-145)
== END | disposition home or self-care (01) ==
LOC: LABWHC1 08:23
PROVIDERS: ATTEND Family Medicine
DX: I10 Essential (primary) hypertension (principal); E78.00 Pure hypercholesterolemia, unspecified
CPT/HCPCS: 36415; 80048; 80061; 84450; 84460; 85025

== ENCOUNTER → 2023-05-10 | Outpatient (CLI) | payer MEDICARE, OTHER ==
--- NOTE | 2023-05-10 14:45 | MR ---
EXAMINATION TYPE: MR lumbar spine wo con DATE OF EXAM: 05/10/2023 COMPARISON: Lumbar spine radiograph 04/27/2023 HISTORY: BACK PAIN X1 YEAR TECHNIQUE: Multiplanar, multisequence images of the lumbar spine were acquired without IV contrast. FINDINGS: Lumbar segments are intact. No paraspinal masses are identified. Conus medullaris has a n ormal appearance. Grade 1 anterolisthesis of L3 on L4 and L4 on L5 with mild retrolisthesis of L5 on S1. Postsurgical changes from right posterior fusion with pedicular enma and screws involving L4-L5 an d disc spacer. Additional screw involving the spinous processes at L5. This hardware creates suscepti bility artifact which limits evaluation. Additional postsurgical changes with bilateral screws involv ing the SI joints. Multilevel disc desiccation. Type I Modic changes involving the superior endplate of the S1 vertebral body and inferior endplate of the L5 vertebral body. L1-L2: No herniation, protrusion or disc bulging. No canal stenosis is present. Foramina are patent bilaterally. L2-L3: No herniation, protrusion or disc bulging. No canal stenosis is present. Foramina are patent bilaterally. L3-L4: Grade 1 anterolisthesis. Broad-based disc bulge with mild effacement of the anterior thecal sa c. Bilateral facet arthropathy with ligamentum flavum buckling. Moderate bilateral neural foraminal s tenosis. L4-L5: Grade 1 anterolisthesis. Postsurgical changes. No significant neural foraminal or central norris l stenosis. L5-S1: Mild retrolisthesis. Broad-based disc bulge without significant effacement of the anterior the charisse sac. Bilateral facet arthropathy. Moderate bilateral neural foraminal stenosis. IMPRESSION: 1. Postsurgical changes from posterior fusion L4-L5. This creates susceptibility artifact which limit s evaluation. No disc herniation identified. 2. Mild multilevel degenerative disc disease most pronounced at L3-L4 with mild central canal stenosi s and moderate bilateral neural foraminal stenosis secondary to disc bulge with facet arthropathy. 3. Grade 1 anterolisthesis of L3 on L4, L4 on L5, and mild retrolisthesis of L5 on S1.
== END | disposition home or self-care (01) ==
LOC: RADMRIMAIN 12:55
PROVIDERS: ATTEND Orthopaedic Surgery
DX: M47.817 Spondylosis without myelopathy or radiculopathy, lumbosacral region (principal); M51.36 Other intervertebral disc degeneration, lumbar region; M99.73 Connective tissue and disc stenosis of intervertebral foramina of lumbar region; M43.16 Spondylolisthesis, lumbar region; M43.17 Spondylolisthesis, lumbosacral region; Z98.1 Arthrodesis status; M47.816 Spondylosis without myelopathy or radiculopathy, lumbar region
CPT/HCPCS: 72148

== ENCOUNTER → 2023-07-06 | Outpatient (CLI) | payer MEDICARE, OTHER ==
--- NOTE | 2023-07-06 10:55 | P.PAINPG ---
PQRS Measure Charge Sheet Comment: HISTORY OF PRESENT ILLNESS: A 72 yr old female as a referral from Dr Swartz presents today w severe and chronic LBP x >10 yrs secondary to post laminectomy syndrome for evaluation. Pt states pain level is provoked at 10 /10 in intensity, constant, localized in the mid to lower lumbar spine, predominantly axial, dull in character without occasional shooting pain. Pain is provoked by over activity or standing/ walking for periods > 5 min. Pain is alleviated by heat, ice, PT years ago, physician guided home exercises and stretches daily x 3 mo as recommended by Dr Swartz, medications (Flexeril, Tramadol), repositioning and rest. Oswestry axial pain score at 19. PMH: OA, GERD, MDD PSH: R Reverse Total Shoulder Arthroplasty (2021), C section, Tubal Ligation, Hysterectomy, Tonsillectomy, BL CTR, L Breast Biopsy x2, L Knee Arthroscopy SH: Negative x3 FH: Sis- CA All: See list Meds: See list REVIEW OF ORGAN SYSTEMS: CONSTITUTIONAL: No fevers or chills. No recent weight loss. NEUROLOGICAL: + numbness and tingling along the distal extremities. No seizure disorders or headaches. MUSCULOSKELETAL: + pain PSYCHIATRIC: Denies current depression or suicidal thoughts. Physical Examinations : Constitutional : Cooperative , not in acute distress . Neurologic : Cranial nerve II to XII intact. No focal neurological deficits. Psychiatric : alert & oriented x 3. Matching mood & appropriate affect. Judgment & insight intact. Musculoskeletal : Cervical Spine Motor strength in the deltoid and biceps: Normal right side. Normal Left side Motor strength biceps and the wrist extensors: Normal right side . Normal left side Motor strength in the triceps muscle: Normal right side. Normal left side Deep tendon reflexes: Normal at the biceps. Normal at Brachioradialis. Normal at triceps Vertebral body tenderness to deep palpation over Cervical facet loading test: positive bilaterally Spurling test: positive bilaterally Neck distraction test: positive bilaterally Lashawn sign: positive bilaterally Lumbar spine Motor strength lower extremities ,thigh and legs 5/5 Right side , 5/5 Left side Deep tendon reflexes : Normal Knee Jerk. Normal Ankle Jerk Vertebral body tenderness over Gray Test positive Lumbar facet Loading Test: positive Right / positive Left over L3-L4, L5-S1 Range of motion of the lumbar spine Flexion 30 degrees, extension 10 degrees Straight Leg Raise test: Left/ Right positive at degree Fortunato test: positive right / positive left. Severe tenderness over the Sacroiliac joint on the Right / Left sides Gaenslen test: positive bilaterally Seated flexion test: positive bilaterally. Sacral spine : Severe tenderness over the Sacroiliac joint: right side / left side Range of motion: Flexion of the lumbar spine <60 degrees Range of motion: Extension of the lumbar spine <20 degrees Gaenslen's Test positive Fortunato test: positive right side / left side Thigh Thrust Test Sacral Thrust Test Imaging: MRI noncontrast the lumbar spine from 05/10/23 reviewed Assessment/ Plan : Post laminectomy syndrome Recommendation of BL MBB L3-L4, L5-S1 #1. May need a series of injections, up until RFA, for optimal pain relief. Risks, benefits of procedure discussed and patient verbalized understanding. Admits to anti- coagulant use or medical history of diabetes. Protocol for discontinuation/ continuation of medications sona procedure discussed. Minimal anesthesia provided, if clinically indicated, consisting of Versed and Fentanyl. All questions answered. I have spent greater than 30 minutes on patient care today. Dr Freeman was available by phone for the evaluation of this patient. The time was used to review the medical records including relevant urine studies and Prescription history (MAPs), review of the available imaging, evaluation and examination of the patient, coordination of care with the medical staff and if applicable referring physicians, as well as creation of the medical record PQRS Narrative: Smoking Status Never smoker Home Medications: Ambulatory Orders Aspirin 325 mg PO DAILY 07/12/17 Betamethasone Dipropionate [Betamethasone Dipropionate 0.05%] 1 applic TOPICAL DAILY PRN 07/12/17 Cyanocobalamin [Vitamin B-12] 500 mcg PO DAILY 07/12/17 Cyclobenzaprine [Flexeril] 5 mg PO HS 07/12/17 Ipratropium [place] [Ipratropium [place] 0.03%] 2 sprays PO DAILY PRN 07/12/17 Multivitamins, Thera [Multivitamin (formulary)] 1 each PO DAILY 07/12/17 Vits A,C,E/Lutein/Minerals [Ocuvite with Lutein Tablet] 1 each PO DAILY 07/12/17 amLODIPine BESYLATE [Norvasc] 5 mg PO HS 07/12/17 atenoloL [Tenormin] 50 mg PO BID 07/12/17 calcium polycarbophiL [[place]] 625 mg PO DAILY 07/12/17 diphenhydrAMINE [Benadryl] 25 mg PO HS PRN 07/12/17 estradioL [Estrace] 1 mg PO Q72H 07/12/17 lisinopriL [Zestril] 20 mg PO QAM 07/12/17 Calcium Carbonate [Tums] 500 mg PO DIRECTED PRN 11/25/21 Cholecalciferol [Vitamin D3 (25 Mcg = 1000 Iu)] 50 mcg PO HS 11/25/21 Melatonin [Melatonin ER] 15 mg PO HS 11/25/21 Calcium Carbonate [Calcium] 600 mg PO DAILY 03/27/22 Cholecalciferol (Vitamin D3) [Vitamin D3 (125 MCG = 5,000 IU)] 125 mcg PO DAILY 03/27/22 HYDROcodone/APAP 7.5-325MG [[place] 7.5] 1 each PO Q8H PRN 03/27/22 Docusate [Colace] 100 mg PO DAILY #30 capsule 04/01/22 hydrOXYzine pamoate [Vistaril] 25 mg PO Q6HR #24 capsule 04/01/22 traMADol HCL 50 mg PO Q6H #36 tab 04/01/22 Controlled Substance Measures - Controlled Substance Measures Is patient prescribed a controlled substance at discharge?: No
[2023-07-06 11:03] VITALS: BP 133/80; PULSE 57; RESP 16; TEMP 97.6
== END ==
LOC: PNWHC3 10:28
PROVIDERS: ATTEND Specialist
DX: M43.26 Fusion of spine, lumbar region (principal); M48.061 Spinal stenosis, lumbar region without neurogenic claudication; M96.1 Postlaminectomy syndrome, not elsewhere classified; M47.26 Other spondylosis with radiculopathy, lumbar region; Z88.0 Allergy status to penicillin; Z88.5 Allergy status to narcotic agent; Z79.82 Long term (current) use of aspirin; Z88.8 Allergy status to other drugs, medicaments and biological substances
CPT/HCPCS: 99211

== ENCOUNTER 2023-07-16 09:23 | Day surgery (SDC) | payer MEDICARE, OTHER ==
[2023-07-13 18:51] VITALS: BMI 27.0
[2023-07-16] MEDS ORDERED: LIDOCAINE 1% (10MG/ML) FOR IV START INTRADERMA PRN (09:35)
[2023-07-16] MEDS ORDERED: LACTATED RINGERS 1,000 ML IV SCH ×2 (09:35)
[2023-07-16 10:08] VITALS: TEMP 97
[2023-07-16] MEDS ORDERED: fentaNYL (PF) 50 MCG/ML 2 ML AMP ONE (10:51)
[2023-07-16] MEDS ORDERED: MIDAZOLAM 2 MG/2 ML VIAL ONE (10:51)
[2023-07-16] MEDS ORDERED: ROPIVACAINE 5MG/ML 20ML VIAL ONE (10:54)
[2023-07-16] MEDS ORDERED: IV FLUID CONTINUATION 1,000 ML IV ONE (11:22)
--- NOTE | 2023-07-16 11:27 | P.PCN ---
Description of Procedure: Preprocedure diagnosis. 1. Lumbar spondylosis with facet joint arthropathy without myelopathy. 2. Lumbar degenerative disc disease. 3. Post laminectomy syndrome. Postprocedure diagnosis. As above. Procedure done. Bilateral diagnostic block with local anesthetics at L2, L3, L5 medial branch with fluoroscopic guidance (fluoroscopy images are available in the radiology department) target to the facet joint bilateral L3-4 and L5-S1 levels. Anesthesia. Related anesthesia care as per anesthesia department. Blood loss. Minimal. Indication. The patient has low back pain secondary to lumbar facet joint arthropathy. Discussed the procedure and alternative and complications which includes infection, bleeding, nerve damage, aggravation of pain. Patient understands and all questions were answered. Patient iunderstands that if any pain relief occurs it will last for a few hours to a few days maximum. Procedure description. After getting consent patient was taken in the OR in prone position. Back prepped with chlorhexidine and draped in sterile fashion. After injecting 5 mL of plain 1% lidocaine subcutaneously, a 22-gauge spinal needle was introduced under tunnel vision of the fluoroscope at the junction of the superior articular process with right ala of the sacrum. With slight right oblique fluoroscope, after injecting 5 mL of plain 1% lidocaine subcutaneously, a 22-gauge spinal needle was introduced under tunnel vision of the fluoroscope at the junction of the superior articular process with right L3 transverse process, junction of the superior articular process with the right L4 transverse process. After needle position confirmation by AP and crosstable lateral view, after negative aspiration, half milliliters of 0.5% ropivacaine were injected at each point. In exactly same way, left sided injections were done at the following 3 points. Junction of the superior articular process with left ala of the sacrum, junction of the superior articular process with the left L3 transverse process, junction of the superior articular process with left L4 transverse process. Total 3 mL of 0.5% ropivacaine was injected. Spinal needles were taken out and bandages were applied. Disposition. Patient tolerated the procedure well. No complication. Discharged home in stable condition.
[2023-07-16 12:19] VITALS: BP 121/83; PULSE 64; RESP 16
--- NOTE | 2023-07-16 13:15 | FL ---
EXAMINATION TYPE: FL guided pain mgmt statistic Intraoperative/procedural fluoroscopic services were provided. Total fluoroscopy time is 58.3 seconds with a total of 4 submitted images to PACS. Please s ee the operative/procedural note for further details. DAP: [id number] mGym2
== END 2023-07-16 11:57 | disposition home or self-care (01) ==
LOC: ORPAIN 09:23
PROVIDERS: ATTEND Pain Medicine Interventional Pain Medicine
DX: M51.36 Other intervertebral disc degeneration, lumbar region (principal); M47.816 Spondylosis without myelopathy or radiculopathy, lumbar region; M96.1 Postlaminectomy syndrome, not elsewhere classified; I10 Essential (primary) hypertension; E78.5 Hyperlipidemia, unspecified; Z88.5 Allergy status to narcotic agent; Z88.0 Allergy status to penicillin; Z88.6 Allergy status to analgesic agent; Z79.82 Long term (current) use of aspirin; Z79.899 Other long term (current) drug therapy
CPT/HCPCS: 64494 ×2; 64493; J2250; J3010; J2795

== ENCOUNTER → 2023-08-12 | Outpatient (CLI) | payer MEDICARE, OTHER ==
[2023-08-12 10:28] VITALS: BP 134/82; PULSE 66; RESP 15; TEMP 97.2
--- NOTE | 2023-08-12 14:51 | P.PAINPG ---
Objective - Vital Signs Vital signs: Intake & Output 08/11/23 08/12/23 08/12/23 18:59 06:59 18:59 Weight 55.338 kg PQRS Measure Charge Sheet Comment: HISTORY OF PRESENT ILLNESS: A 72 yr old female presents today w severe and chronic LBP x >10 yrs secondary to post laminectomy syndrome for evaluation s/p BL MBB L3-L4/ L5-S1 #1. Pt states she experienced 80% garcia relief x 4 hrs s/p procedure. Pt states pain level is provoked at 8 /10 in intensity, constant, localized in the mid to lower lumbar spine, predominantly axial, dull in character without occasional shooting pain. Pain is provoked by over activity or standing/ walking for periods > 5 min. Pain is alleviated by heat, ice, PT years ago, physician guided home exercises and stretches daily x 3 mo as recommended by Dr Swartz, medications, repositioning and rest. Oswestry axial pain score at 19. Interventional procedures include BL MBB L3-L4/L5-S1 x1 Medications include Flexeril, Tramadol REVIEW OF ORGAN SYSTEMS: CONSTITUTIONAL: No fevers or chills. No recent weight lo ss. NEUROLOGICAL: + numbness and tingling along the distal extremities. No seizure disorders or headaches. MUSCULOSKELETAL: + pain PSYCHIATRIC: Denies current depression or suicidal thoughts. Physical Examinations : Constitutional : Cooperative , not in acute distress . Neurologic : Cranial nerve II to XII intact. No focal neurological deficits. Psychiatric : alert & oriented x 3. Matching mood & appropriate affect. Judgment & insight intact. Musculoskeletal : Cervical Spine Motor strength in the deltoid and biceps: Normal right side. Normal Left side Motor strength biceps and the wrist e xtensors: Normal right side . Normal left side Motor strength in the triceps muscle: Normal right side. Normal left side Deep tendon reflexes: Normal at the biceps. Normal at Brachioradialis. Normal at triceps Vertebral body tenderness to deep palpation over Cervical facet loading test: positive bilaterally Spurling test: positive bilaterally Neck distraction test: positive bilaterally Lashawn sign: positive bilaterally Lumbar spine Motor strength lower extremities ,thigh and legs 5/5 Right side , 5/5 Left side Deep tendon reflexes : Normal Knee Jerk. Normal Ankle Jerk Vertebral body tenderness over Gray Test positive Lumbar facet Loading Test: positive Right / positive Left over L3-L4, L5-S1 Range of motion of the lumbar spine Flexion 30 degrees, extension 10 degrees Straight Leg Raise test: Left/ Right positive at degree Fortunato test: positive right / positive left. Severe tenderness over the Sacroiliac joint on the Right / Left sides Gaenslen test: positive bilaterally Seated flexion test: positive bilaterally. Sacral spine : Severe tenderness over the Sacroiliac joint: right side / left side Range of motion: Flexion of the lumbar spine <60 degrees Range of motion: Extension of the l umbar spine <20 degrees Gaenslen's Test positive Fortunato test: positive right side / left side Thigh Thrust Test Sacral Thrust Test Imaging: MRI noncontrast the lumbar spine from 05/10/23 reviewed Assessment/ Plan : Post laminectomy syndrome Recommendation of BL MBB L3-L4, L5-S1 #2. May need a series of injections, up until RFA, for optimal pain relief. Risks, benefits of procedure discussed and patient verbalized understanding. Admits to anti- coagulant use or medical history of diabetes. Protocol for discontinuation/ continuation of medications sona procedure discussed. Minimal anesthesia provided, if clinically indicated, consisting of Versed and Fentanyl. All questions answered. I have spent greater than 30 minutes on patient care today. Dr Freeman was available by phone for the evaluation of this patient. The time was used to review the medical records including relevant urine studies and Prescription history (MAPs), review of the available imaging, evaluation and examination of the patient, coordination of care with the medical staff and if applicable referring physicians, as well as creation of the medical record PQRS Narrative: Smoking Status Never smoker Hx Alcohol Use (MH) No Home Medications: Ambulatory Orders Aspirin 81 mg PO DAILY 07/12/17 Cyanocobalamin [Vitamin B-12] 500 mcg PO Q2D 07/12/17 Ipratropium [place] [Ipratropium [place] 0.03%] 2 sprays PO DAILY PRN 07/12/17 Multivitamins, Thera [Multivitamin (formulary)] 1 each PO DAILY 07/12/17 Vits A,C,E/Lutein/Minerals [Ocuvite with Lutein Tablet] 1 each PO DAILY 07/12/17 amLODIPine BESYLATE [Norvasc] 5 mg PO HS 07/12/17 atenoloL [Tenormin] 50 mg PO BID 07/12/17 diphenhydrAMINE [Benadryl] 25 mg PO HS PRN 07/12/17 estradioL [Estrace] 1 mg PO DAILY 07/12/17 lisinopriL [Zestril] 20 mg PO QAM 07/12/17 Melatonin [Melatonin ER] 10 mg PO HS 11/25/21 Cholecalciferol (Vitamin D3) [Vitamin D3 (125 MCG = 5,000 IU)] 125 mcg PO DAILY 03/27/22 Calcium Carbonate/Vitamin D3 [Calcium 600 mg-D3 10 Mcg (400 Iu)] 1 each PO HS 07/13/23 Eszopiclone [Lunesta] 2 mg PO HS 07/13/23 Fish Oil/Dha/Epa [Fish Oil 1,200 mg Fish Oil] 1 each PO HS 07/13/23 HYDROcodone/APAP 5-325MG [[place] 5-325] 1 tab PO Q12H PRN 07/13/23 L.acidoph,Paracasei, B.lactis [Probiotic] 1 each PO DAILY 07/13/23 Multivit-Min/Folic Acid/Biotin [Hair, Skin and Nails Softgel] 133.3 mcg PO BID 07/13/23 Controlled Substance Measures - Controlled Substance Measures Is patient prescribed a controlled substance at discharge?: No
== END ==
LOC: PNWHC3 09:51
PROVIDERS: ATTEND Specialist
DX: M96.1 Postlaminectomy syndrome, not elsewhere classified (principal); Z79.82 Long term (current) use of aspirin; Z88.0 Allergy status to penicillin; Z88.5 Allergy status to narcotic agent; Z88.8 Allergy status to other drugs, medicaments and biological substances
CPT/HCPCS: 99211

== ENCOUNTER 2023-08-20 10:26 | Day surgery (SDC) | payer MEDICARE, OTHER ==
[~2023-08-20 10:26] MED LIST changes: -ACETAMINOPHEN TAB 500 MG TAB PO PRN; -DEXAMETHASONE SOD PHOSPHATE 4 MG/ML 1 ML VIAL IV ONE; +LACTATED RINGERS 1,000 ML IV SCH; +LIDOCAINE 1% (10MG/ML) FOR IV START INTRADERMA PRN; -MELOXICAM 7.5 MG TAB PO PRN; -MIDAZOLAM 2 MG/2 ML VIAL IV PRN; -ONDANSETRON 4 MG/2 ML VIAL IVP ONE; -TRANEXAMIC ACID IN NACL,ISO-OS 1,000 MG in SALINE 1 100ML.BAG IVPB PRN; -fentaNYL (PF) 50 MCG/ML 2 ML AMP IV PRN
[2023-08-20] MEDS: LACTATED RINGERS 1,000 ML IV SCH ×2 (10:52→10:53)
[2023-08-20] MEDS ORDERED: MIDAZOLAM 2 MG/2 ML VIAL ONE (10:54)
[2023-08-20 10:55] VITALS: TEMP 97.1
[2023-08-20] MEDS ORDERED: ROPIVACAINE 5MG/ML 20ML VIAL ONE (10:56)
--- NOTE | 2023-08-20 11:09 | P.PCN ---
Date of Procedure: 08/20/23 Surgeon: Aldo Quigley Pathology: none sent Condition: stable Disposition: PACU Description of Procedure: PREOPERATIVE DIAGNOSIS : 1- Lumbar spondylosis with Facet Arthropathy without myelopathy . 2- Lumber degenerative disc disease POSTOPERATIVE DIAGNOSIS: 1- Lumbar spondylosis with Facet Arthropathy without myelopathy . 2- Lumber degenerative disc disease PROCEDURE: Diagnostic bilateral L3-4 , and L5-S1 medial branch block under fluoroscopy(L4 5 level was skipped due to previous surgery with hardware placement on this level) Physician: Aldo Quigley MD ANESTHESIA: Local with 1% lidocaine;and IV moderate conscious sedation by the anesthesia department EBL: Negligible COMPLICATION: None. PROCEDURE INDICATION: Chronic low back pain secondary to Facet arthropathy unresponsive to conservative treatment. PROCEDURE DESCRIPTION: the patient was seen and identified in the preop holding area , risks and benefits and possible complications of the procedure and alternatives were discussed with the patient, and the patient agreed to proceed with the procedure and signed the consent. IV was started and vital signs monitored during the procedure and fluoroscopy was used to maximize the benefit and accuracy of the needle placement, sedation was given to decrease patient anxiety, patient was taken to the procedure room and placed in prone position vital signs monitored. The patient was brought into the procedure room and placed in prone position. Skin was prepped with Chloraprep and draped in a sterile manner. Lidocaine 1% was used to numb the skin up at the target points that were chosen as follows: at the L5-S1 level which corresponds to the dorsal ramus of L5 the target points were at the superior medial aspect of the sacral ala on each side of the spine on the AP view of fluoroscopy, and for the L2 and L3 medial branches the target points were the connection between the transverse process and the superior articular process of L3 and L4 respectively on the oblique views of fluoroscopy. I used 22-gauge 3-1/2 inch Qu[place]ke spinal needles for this procedure and after contacting bone at the target points mentioned above I injected 1 mL of Ropivacaine 0.5% PF . Patient tolerated procedure well. At the end of the procedure the needles removed and a bandage applied after the skin was cleaned the cleaning solution. patient was then taken to the recovery room in stable condition and monitored in the recovery room for 20-30 minutes and discharged home in stable condition after discharge criteria met . A copy of the needle placement picture was saved to the C-arm machine.
[2023-08-20] MEDS ORDERED: LACTATED RINGERS 1,000 ML IV ONE (11:11)
--- NOTE | 2023-08-20 11:21 | FL ---
EXAMINATION TYPE: FL guided pain mgmt statistic DATE OF EXAM: 08/20/2023 HISTORY: Fluoroscopy time Total dose area product (DAP) in uGy*m?, mGy*cm? (or similar): 0.64006 IMPRESSION: 1. Fluoroscopy time.
[2023-08-20 11:44] VITALS: BP 121/76; PULSE 56; RESP 17
== END 2023-08-20 11:38 | disposition home or self-care (01) ==
LOC: ORPAIN 10:26
PROVIDERS: ATTEND Anesthesiology
DX: M51.36 Other intervertebral disc degeneration, lumbar region (principal); M47.816 Spondylosis without myelopathy or radiculopathy, lumbar region; G89.29 Other chronic pain; I10 Essential (primary) hypertension; F32.A Depression, unspecified; K21.9 Gastro-esophageal reflux disease without esophagitis; Z88.5 Allergy status to narcotic agent; Z88.8 Allergy status to other drugs, medicaments and biological substances; Z79.899 Other long term (current) drug therapy
CPT/HCPCS: 64493; 64494 ×2; 99152; J2250; J2795

== ENCOUNTER → 2023-09-13 | Outpatient (CLI) | payer MEDICARE, OTHER ==
[2023-09-13 11:03] VITALS: BP 147/73; PULSE 76; RESP 15; TEMP 98.9
--- NOTE | 2023-09-13 14:37 | P.PAINPG ---
Objective - Vital Signs Vital signs: Intake & Output 09/12/23 09/13/23 09/13/23 18:59 06:59 18:59 Weight 56.699 kg PQRS Measure Charge Sheet Comment: HISTORY OF PRESENT ILLNESS: A 72 yr old female presents today w severe and chronic LBP x >10 yrs secondary to post laminectomy syndrome for evaluation s/p BL MBB L3-L4/ L5-S1 #2. Pt states she experienced 100% garcia relief x 1 wk s/p procedure. Pt states pain level is provoked at 6 /10 in intensity, constant, localized in the mid to lower lumbar spine, predominantly axial, dull in character without occasional shooting pain. Pain is provoked by over activity or standing/ walking for periods > 5 min. Pain is alleviated by heat, ice, PT years ago, physician guided home exercises and stretches daily since Jul 2023, medications, repositioning and rest. Oswestry axial pain score at 18. Interventional procedures include BL MBB L3-L4/L5-S1 x1 Medications include Flexeril, Tramadol REVIEW OF ORGAN SYSTEMS: CONSTITUTIONAL: No fevers or chills. No recent weight loss. NEUROLOGICAL: + numbness and tingling along the distal extremities. No seizure disorders or headaches. MUSCULOSKELETAL: + pain PSYCHIATRIC: Denies current depression or suicidal thoughts. Physical Examinations : Constitutional : Cooperative , not in acute distress . Neurologic : Cranial nerve II to XII intact. No focal neurological deficits. Psychiatric : alert & oriented x 3. Matching mood & appropriate affect. Judgment & insight intact. Musculoskeletal : Cervical Spine Motor strength in the deltoid and biceps: Normal right side. Normal Left side Motor strength biceps and the wrist extensors: Normal right side . Normal left side Motor strength in the triceps muscle: Normal right side. Normal left side Deep tendon reflexes: Normal at the biceps. Normal at Brachioradialis. Normal at triceps Vertebral body tenderness to deep palpation over Cervical facet loading test: positive bilaterally Spurling test: positive bilaterally Neck distraction test: positive bilaterally Lashawn sign: positive bilaterally Lumbar spine Motor strength lower extremities ,thigh and legs 5/5 Right side , 5/5 Left side Deep tendon reflexes : Normal Knee Jerk. Normal Ankle Jerk Vertebral body tenderness over Gray Test positive Lumbar facet Loading Test: positive R ight / positive Left over L3-L4, L5-S1 Range of motion of the lumbar spine Flexion 30 degrees, extension 10 degrees Straight Leg Raise test: Left/ Right positive at degree Fortunato test: positive right / positive left. Severe tenderness over the Sacroiliac joint on the Right / Left sides Gaenslen test: positive bilaterally Seated flexion test: positive bilaterally. Sacral spine : Severe tenderness over the Sacroiliac joint: right side / left side Range of motion: Flexion of the lumbar spine <60 degrees Range of motion: Extension of the lumbar spine <20 degrees Gaenslen's Test positive Fortunato test: positive right side / left side Thigh Thrust Test Sacral Thrust Test Imaging: MRI noncontrast the lumbar spine from 05/10/23 reviewed Assessment/ Plan : Post laminectomy syndrome Recommendation of BL RFA L3-L4, L5-S1. Exhibited optimal pain relief w prior MBB procedures. Risks, benefits of procedure discussed and patient verbalized understanding. Admits to anti- coagulant use or medical history of diabetes. Protocol for discontinuation/ continuation of medications sona procedure discussed. Minimal anesthesia provided, if clinically indicated, consisting of Versed and Fentanyl. All questions answered. I have spent greater than 30 minutes on patient care today. Dr Freeman was available by phone for the evaluation of this patient. The time was used to review the medical records including relevant urine studies and Prescription history (MAPs), review of the available imaging, evaluation and examination of the patient, coordination of care with the medical staff and if applicable refe rring physicians, as well as creation of the medical record PQRS Narrative: Smoking Status Never smoker Hx Alcohol Use (MH) No Home Medications: Ambulatory Orders Aspirin 81 mg PO DAILY 07/12/17 Cyanocobalamin [Vitamin B-12] 500 mcg PO Q2D 07/12/17 Ipratropium [place] [Ipratropium [place] 0.03%] 2 sprays PO DAILY PRN 07/12/17 Multivitamins, Thera [Multivitamin (formulary)] 1 each PO DAILY 07/12/17 Vits A,C,E/Lutein/Minerals [Ocuvite with Lutein Tablet] 1 each PO DAILY 07/12/17 amLODIPine BESYLATE [Norvasc] 5 mg PO HS 07/12/17 atenoloL [Tenormin] 50 mg PO BID 07/12/17 diphenhydrAMINE [Benadryl] 25 mg PO HS PRN 07/12/17 estradioL [Estrace] 1 mg PO DAILY 07/12/17 lisinopriL [Zestril] 20 mg PO QAM 07/12/17 Melatonin [Melatonin ER] 10 mg PO HS 11/25/21 Cholecalciferol (Vitamin D3) [Vitamin D3 (125 MCG = 5,000 IU)] 125 mcg PO DAILY 03/27/22 Calcium Carbonate/Vitamin D3 [Calcium 600 mg-D3 10 Mcg (400 Iu)] 1 each PO HS 07/13/23 Eszopiclone [Lunesta] 2 mg PO HS 07/13/23 Fish Oil/Dha/Epa [Fish Oil 1,200 mg Fish Oil] 1 each PO HS 07/13/23 HYDROcodone/APAP 5-325MG [[place] 5-325] 1 tab PO Q12H PRN 07/13/23 L.acidoph,Paracasei, B.lactis [Probiotic] 1 each PO DAILY 07/13/23 Multivit-Min/Folic Acid/Biotin [Hair, Skin and Nails Softgel] 133.3 mcg PO BID 07/13/23 Gabapentin 300 mg PO BID 08/16/23 Controlled Substance Measures - Controlled Substance Measures Is patient prescribed a controlled substance at discharge?: No
== END ==
LOC: PNWHC3 10:00
PROVIDERS: ATTEND Specialist
DX: M96.1 Postlaminectomy syndrome, not elsewhere classified (principal); Z79.82 Long term (current) use of aspirin; Z88.0 Allergy status to penicillin; Z88.5 Allergy status to narcotic agent; Z88.8 Allergy status to other drugs, medicaments and biological substances
CPT/HCPCS: 99211

== ENCOUNTER → 2023-10-18 | Outpatient (CLI) | payer MEDICARE, OTHER ==
--- NOTE | 2023-10-18 13:23 | P.PAINPG ---
PQRS Measure Charge Sheet Comment: HISTORY OF PRESENT ILLNESS: A 72 yr old female presents today w severe and chronic LBP x >10 yrs secondary to post laminectomy syndrome for evaluation s/p BL RFA L3-L4/ L5-S1. Pt states she experienced 75 % pain relief s/p procedure. Pt states pain level is provoked at 6 /10 in intensity, constant, localized in the mid to lower lumbar spine, predominantly axial, dull in character w occasional L lumbar shooting pain. Pain is provoked by over activity or standing/ walking for periods > 5 min. Pain is alleviated by heat, ice, PT years ago, physician guided home exercises and stretches daily since Jul 2023, medications, repositioning and rest. Oswestry axial pain score at 15. Interventional procedures include BL MBB L3-L4/L5-S1 x1 Medications include Flexeril, Tramadol REVIEW OF ORGAN SYSTEMS: CONSTITUTIONAL: No fevers or chills. No recent weight loss. NEUROLOGICAL: + numbness and tingling along the distal extremities. No seizure disorders or headaches. MUSCULOSKELETAL: + pain PSYCHIATRIC: Denies current depression or suicidal thoughts. Physical Examinations : Constitutional : Cooperative , not in acute distress . Neurologic : Cranial nerve II to XII intact. No focal neurological deficits. Psychiatric : alert & oriented x 3. Matching mood & appropriate affect. Judgment & insight intact. Musculoskeletal : Cervical Spine Motor strength in the deltoid and biceps: Normal right side. Normal Left side Motor strength biceps and the wrist extensors: Normal right side . Normal left side Motor strength in the triceps muscle: Normal right side. Normal left side Deep tendon reflexes: Normal at the biceps. Normal at Brachioradialis. Normal at triceps Vertebral body tenderness to deep palpation over Cervical facet loading test: positive bilaterally Spurling test: positive bilaterally Neck distraction test: positive bilaterally Lashawn sign: positive bilaterally Lumbar spine Motor strength lower extremities ,thigh and legs 5/5 Right side , 5/5 Left side Deep tendon reflexes : Normal Knee Jerk. Normal Ankle Jerk Vertebral body tenderness over Gray Test positive Lumbar facet Loading Test: positive Right / positive Left Taut bands w twitch response over L L3- S1 Range of motion of the lumbar spine Flexion 30 degrees, extension 10 degrees Straight Leg Raise test: Left/ Right positive at degree Fortunato test: positive right / positive left. Severe tenderness over the Sacroiliac joint on the Right / Left sides Gaenslen test: positive bilaterally Seated flexion test: positive bilaterally. Sacral spine : Severe tenderness over the Sacroiliac joint: right side / left side Range of motion: Flexion of the lumbar spine <60 degrees Range of motion: Extension of the lumbar spine <20 degrees Gaenslen's Test positive Fortunato test: positive right side / left side Thigh Thrust Test Sacral Thrust Test Imaging: MRI noncontrast the lumbar spine from 05/10/23 reviewed Assessment/ Plan : Post laminectomy syndrome Recommendation of L TPIs L3-S1 #1. May need a series of injections for optimal pain relief. Risks, benefits of procedure discussed and patient verbalized understanding. Admits to anti- coagulant use or medical history of diabetes. Protocol for discontinuation/ continuation of medications sona procedure discussed. All questions answered. I have spent greater than 30 minutes on patient care today. Dr Fremean was available by phone for the evaluation of this patient. The time was used to review the medical records including relevant urine studies and Prescription history (MAPs), review of the available imaging, evaluation and examination of the patient, coordination of care with the medical staff and if applicable referring physicians, as well as creation of the medical record PQRS Narrative: Smoking Status Never smoker Hx Alcohol Use (MH) No Home Medications: Ambulatory Orders Aspirin 81 mg PO DAILY 07/12/17 Cyanocobalamin [Vitamin B-12] 500 mcg PO Q2D 07/12/17 Ipratropium Hanahan [Ipratropium Hanahan 0.03%] 2 sprays PO DAILY PRN 07/12/17 Multivitamins, Thera [Multivitamin (formulary)] 1 each PO DAILY 07/12/17 Vits A,C,E/Lutein/Minerals [Ocuvite with Lutein Tablet] 1 each PO DAILY 07/12/17 amLODIPine BESYLATE [Norvasc] 5 mg PO HS 07/12/17 atenoloL [Tenormin] 50 mg PO BID 07/12/17 diphenhydrAMINE [Benadryl] 25 mg PO HS PRN 07/12/17 estradioL [Estrace] 1 mg PO DAILY 07/12/17 lisinopriL [Zestril] 20 mg PO QAM 07/12/17 Melatonin [Melatonin ER] 10 mg PO HS 11/25/21 Cholecalciferol (Vitamin D3) [Vitamin D3 (125 MCG = 5,000 IU)] 125 mcg PO DAILY 03/27/22 Calcium Carbonate/Vitamin D3 [Calcium 600 mg-D3 10 Mcg (400 Iu)] 1 each PO BID 07/13/23 Eszopiclone [Lunesta] 2 mg PO HS 07/13/23 Fish Oil/Dha/Epa [Fish Oil 1,200 mg Fish Oil] 1 each PO HS 07/13/23 HYDROcodone/APAP 5-325MG [[place] 5-325] 1 tab PO Q12H PRN 07/13/23 L.acidoph,Paracasei, B.lactis [Probiotic] 1 each PO DAILY 07/13/23 Multivit-Min/Folic Acid/Biotin [Hair, Skin and Nails Softgel] 133.3 mcg PO BID 07/13/23 Gabapentin 300 mg PO BID 08/16/23 Diclofenac Sodium Gel [Voltaren 1% Gel] 100 gm TOPICAL BID 30 Days #1 each 10/18/23 Controlled Substance Measures - Controlled Substance Measures Is patient prescribed a controlled substance at discharge?: No
[2023-10-18 13:27] VITALS: BP 130/67; PULSE 75; RESP 16; TEMP 97.8
== END ==
LOC: PNWHC3 11:09
PROVIDERS: ATTEND Specialist
DX: M96.1 Postlaminectomy syndrome, not elsewhere classified (principal); Z79.82 Long term (current) use of aspirin; Z88.0 Allergy status to penicillin; Z88.5 Allergy status to narcotic agent; Z88.8 Allergy status to other drugs, medicaments and biological substances
CPT/HCPCS: 99211

== ENCOUNTER 2023-12-14 10:53 | Day surgery (SDC) | payer MEDICARE, OTHER ==
[~2023-12-14 10:53] MED LIST changes: -LIDOCAINE 1% (10MG/ML) FOR IV START INTRADERMA PRN
[2023-12-14] MEDS ORDERED: LACTATED RINGERS 1,000 ML IV SCH (11:11)
--- NOTE | 2023-12-14 11:16 | P.PCN ---
Date of Procedure: 12/14/23 Description of Procedure: Procedure:left lumbar trigger point injection of left L3 through S1 paraspinal muscles Preoperative Diagnosis: myofascial pain syndrome Postoperative diagnosis: Same Anesthesia: local only Surgeon: Christiane Grigsby MD Indications for procedure: Patient with myofascial pain and palpable trigger points in the above mentioned muscles. The patient consents for an injection after an explanation of risks including but not limited to bleeding and infection, benefits, and alternatives and the patient has signed a consent form indicating understanding of all of them. Description of procedure: After informed consent was obtained the patient's painful area was sterilely prepped in the usual fashion with ChloraPrep. The trigger points were identified via palpation and the muscles were marked sterilely. Each trigger point was injected with a 25-gauge one and a half inch needle. At that point a solution consisting of 9 ml of 0.5% ropivacaine with 40mg of depomedrol was distributed evenly over the trigger points. The patient's vital signs were stable afterwards and the procedure was tolerated well. Patient was discharged home with follow-up instructions. It was explained to the patient that these injections are not curative but may help with the current symptoms. In order to strengthen the muscles involved, there needs to be dedicated exercise routine to strengthen the muscles and avoid significant muscle spasms..
[2023-12-14] MEDS ORDERED: methylPREDNISolone ACETATE 40 MG/ML 1 ML VIAL ONE (11:20)
[2023-12-14] MEDS ORDERED: ROPIVACAINE 5MG/ML 20ML VIAL ONE (11:20)
[2023-12-14 12:09] VITALS: BP 134/67; PULSE 54; RESP 16; TEMP 96.8
== END 2023-12-14 11:55 | disposition home or self-care (01) ==
LOC: ORPAIN 10:53
PROVIDERS: ATTEND Hospitalist
DX: M79.18 Myalgia, other site (principal); Z79.82 Long term (current) use of aspirin; Z88.0 Allergy status to penicillin; Z88.5 Allergy status to narcotic agent; Z88.8 Allergy status to other drugs, medicaments and biological substances
CPT/HCPCS: 20553; J2795; J1010

== ENCOUNTER → 2024-01-13 | Outpatient (CLI) | payer MEDICARE, OTHER ==
[2024-01-13 13:56] VITALS: BP 135/61; PULSE 62; RESP 16
--- NOTE | 2024-01-13 14:07 | P.PAINPG ---
PQRS Measure Charge Sheet Comment: HISTORY OF PRESENT ILLNESS: A 72 yr old female presents today w severe and chronic LBP x >10 yrs secondary to post laminectomy syndrome for evaluation s/p L TPIs L3-S1 #1. Pt states she experienced 50 % pain relief x 4 wks s/p procedure. Pt states pain level is provoked at 10 /10 in intensity, intermittent, localized in the mid to lower lumbar spine, predominantly axial, dull in character without shooting pain. Pain is provoked by over activity or standing/ walking for periods > 10 min. Pain is alleviated by heat, ice, PT years ago, physician guided home exercises and stretches daily since Jul 2023, medications, repositioning and rest. Oswestry axial pain score at 16. Interventional procedures include BL RFA L3-L4/L5-S1, L TPIs L3-S1 x1 Medications include Flexeril, Tramadol REVIEW OF ORGAN SYSTEMS: CONSTITUTIONAL: No fevers or chills. No recent weight loss. NEUROLOGICAL: + numbness and tingling along the distal extremities. No seizure disorders or headaches. MUSCULOSKELETAL: + pain PSYCHIATRIC: Denies current depression or suicidal thoughts. Physical Examinations : Constitutional : Cooperative , not in acute distress . Neurologic : Cranial nerve II to XII intact. No focal neurological deficits. Psychiatric : alert & oriented x 3. Matching mood & appropriate affect. Judgment & insight intact. Musculoskeletal : Cervical Spine Motor strength in the deltoid and biceps: Normal right side. Normal Left side Motor strength biceps and the wrist extensors: Normal right side . Normal left side Motor strength in the triceps muscle: Normal right side. Normal left side Deep tendon reflexes: Normal at the biceps. Normal at Brachioradialis. Normal at triceps Vertebral body tenderness to deep palpation over Cervical facet loading test: positive bilaterally Spurling test: positive bilaterally Neck distraction test: positive bilaterally Lashawn sign: positive bilaterally Lumbar spine Motor strength lower extremities ,thigh and legs 5/5 Right side , 5/5 Left side Deep tendon reflexes : Normal Knee Jerk. Normal Ankle Jerk Vertebral body tenderness over Gray Test positive Lumbar facet Loading Test: positive Right / positive Left Taut bands w twitch response over L L3- S1 Range of motion of the lumbar spine Flexion 30 degrees, extension 10 degrees Straight Leg Raise test: Left/ Right positive at degree Fortunato test: positive right / positive left. Severe tenderness over the Sacroiliac joint on the Right / Left sides Gaenslen test: positive bilaterally Seated flexion test: positive bilaterally. Sacral spine : Severe tenderness over the Sacroiliac joint: right side / left side Range of motion: Flexion of the lumbar spine <60 degrees Range of motion: Extension of the lumbar spine <20 degrees Gaenslen's Test positive Fortunato test: positive right side / left side Thigh Thrust Test Sacral Thrust Test Imaging: MRI noncontrast the lumbar spine from 05/10/23 reviewed Assessment/ Plan : L4-L5 posterior fusion/ laminectomy syndrome, SI joint fusion Will explore additional treatment options and may RTC on an as needed basis. All questions answered. I have spent greater than 30 minutes on patient care today. Dr Freeman was available by phone for the evaluation of this patient. The time was used to review the medical records including relevant urine studies and Prescription history (MAPs), review of the available imaging, evaluation and examination of the patient, coordination of care with the medical staff and if applicable referring physicians, as well as creation of the medical record PQRS Narrative: Smoking Status Never smoker Hx Alcohol Use (MH) No Home Medications: Ambulatory Orders Aspirin 81 mg PO DAILY 07/12/17 Cyanocobalamin [Vitamin B-12] 500 mcg PO Q2D 07/12/17 Ipratropium Collins [Ipratropium [place] 0.03%] 2 sprays PO DAILY PRN 07/12/17 Multivitamins, Thera [Multivitamin (formulary)] 1 each PO DAILY 07/12/17 Vits A,C,E/Lutein/Minerals [Ocuvite with Lutein Tablet] 1 each PO DAILY 07/12/17 amLODIPine BESYLATE [Norvasc] 5 mg PO HS 07/12/17 atenoloL [Tenormin] 50 mg PO BID 07/12/17 diphenhydrAMINE [Benadryl] 25 mg PO HS PRN 07/12/17 estradioL [Estrace] 1 mg PO DAILY 07/12/17 lisinopriL [Zestril] 20 mg PO QAM 07/12/17 Melatonin [Melatonin ER] 10 mg PO HS 11/25/21 Cholecalciferol (Vitamin D3) [Vitamin D3 (125 MCG = 5,000 IU)] 125 mcg PO DAILY 03/27/22 Calcium Carbonate/Vitamin D3 [Calcium 600 mg-D3 10 Mcg (400 Iu)] 1 each PO BID 07/13/23 Eszopiclone [Lunesta] 2 mg PO HS 07/13/23 Fish Oil/Dha/Epa [Fish Oil 1,200 mg Fish Oil] 1 each PO HS 07/13/23 HYDROcodone/APAP 5-325MG [[place] 5-325] 1 tab PO DAILY PRN 07/13/23 L.acidoph,Paracasei, B.lactis [Probiotic] 1 each PO DAILY 07/13/23 Multivit-Min/Folic Acid/Biotin [Hair, Skin and Nails Softgel] 133.3 mcg PO BID 07/13/23 Gabapentin 300 mg PO QID 08/16/23 Cyclobenzaprine [Flexeril] 2.5 mg PO HS PRN 11/04/23 Magnesium Oxide [Mag-Ox] 400 mg PO QAM 11/26/23 Acetaminophen [Tylenol] 750 mg PO DAILY 12/10/23 Ibuprofen 800 mg PO DAILY 12/10/23 Controlled Substance Measures - Controlled Substance Measures Is patient prescribed a controlled substance at discharge?: No
== END ==
LOC: PNWHC3 13:27
PROVIDERS: ATTEND Specialist
DX: M96.1 Postlaminectomy syndrome, not elsewhere classified (principal); M43.26 Fusion of spine, lumbar region; M43.28 Fusion of spine, sacral and sacrococcygeal region; Z88.0 Allergy status to penicillin; Z88.5 Allergy status to narcotic agent; Z88.8 Allergy status to other drugs, medicaments and biological substances
CPT/HCPCS: 99211

== ENCOUNTER 2024-02-13 18:19 | Emergency (ER) | payer MEDICARE, OTHER ==
[2024-02-13 18:28] VITALS: TEMP 98.7
--- NOTE | 2024-02-13 19:16 | ED ---
Abdominal Pain HPI - General Chief Complaint: Abdominal Pain Stated Complaint: Abd pain Time Seen by Provider: 02/13/24 19:14 Source: patient, RN notes reviewed Mode of arrival: ambulatory Limitations: no limitations - History of Present Illness Initial Comments: 73-year-old female with history of diverticulitis presenting with left lower quadrant abdominal pain x 2 months. Patient states pain is worsening and feels similar to previous diverticulitis. States she gets this about once yearly. She states the pain is in the left lower quadrant and radiates around the left flank. She describes it as a crampy pain that feels similar to previous mens trual periods. Admits nausea but denies vomiting, fever, chills, urinary symptoms. She does admit some constipation. She states she has had her morphine in the past which helps pain when she is having a diverticulitis flare. - Related Data Home Medications Medication Instructions Recorded Confirmed Aspirin 81 mg PO DAILY 07/12/17 12/10/23 Cyanocobalamin [Vitamin B-12] 500 mcg PO Q2D 07/12/17 12/10/23 Ipratropium [place] [Ipratropium 2 sprays PO DAILY PRN 07/12/17 12/10/23 [place] 0.03%] Multivitamins, Thera [Multivitamin 1 each PO DAILY 07/12/17 12/10/23 (formulary)] Vits A,C,E/Lutein/Minerals 1 each PO DAILY 07/12/17 12/10/23 [Ocuvite with Lutein Tablet] amLODIPine BESYLATE [Norvasc] 5 mg PO HS 07/12/17 12/10/23 atenoloL [Tenormin] 50 mg PO BID 07/12/17 12/10/23 diphenhydrAMINE [Benadryl] 25 mg PO HS PRN 07/12/17 12/10/23 estradioL [Estrace] 1 mg PO DAILY 07/12/17 12/10/23 lisinopriL [Zestril] 20 mg PO QAM 07/12/17 12/10/23 Melatonin [Melatonin ER] 10 mg PO HS 11/25/21 12/10/23 Cholecalciferol (Vitamin D3) 125 mcg PO DAILY 03/27/22 12/10/23 [Vitamin D3 (125 MCG = 5,000 IU)] Calcium Carbonate/Vitamin D3 1 each PO BID 07/13/23 12/10/23 [Calcium 600 mg-D3 10 Mcg (400 Iu)] Eszopiclone [Lunesta] 2 mg PO HS 07/13/23 12/10/23 Fish Oil/Dha/Epa [Fish Oil 1,200 1 each PO HS 07/13/23 12/10/23 mg Fish Oil] HYDROcodone/APAP 5-325MG [[place] 1 tab PO DAILY PRN 07/13/23 12/10/23 5-325] L.acidoph,Paracasei, B.lactis 1 each PO DAILY 07/13/23 12/10/23 [Probiotic] Multivit-Min/Folic Acid/Biotin 133.3 mcg PO BID 07/13/23 12/10/23 [Hair, Skin and Nails Softgel] Gabapentin 300 mg PO QID 08/16/23 12/10/23 Cyclobenzaprine [Flexeril] 2.5 mg PO HS PRN 11/04/23 12/10/23 Magnesium Oxide [Mag-Ox] 400 mg PO QAM 11/26/23 12/10/23 Acetaminophen [Tylenol] 750 mg PO DAILY 12/10/23 12/10/23 Ibuprofen 800 mg PO DAILY 12/10/23 12/10/23 Previous Rx's Medication Instructions Recorded Ciprofloxacin HCl [Cipro] 500 mg PO BID 10 Days #20 tab 02/13/24 metroNIDAZOLE [Flagyl] 500 mg PO TID 10 Days #30 tab 02/13/24 Allergies Allergy/AdvReac Type Severity Reaction Status Date / Time amoxicillin Allergy Rash/Hives Verified 02/13/24 18:28 codeine Allergy agitated,re Verified 02/13/24 18:28 stless prochlorperazine Allergy agitated,re Verified 02/13/24 18:28 [From Compazine] stless Review of Systems ROS Statement: Those systems with pertinent positive or pertinent negative responses have been documented in the HPI. ROS Other: All systems not noted in ROS Statement are negative. Past Medical History Past Medical History: Hypertension, Osteoarthritis (OA) Additional Past Medical History / Comment(s): Diverticulitis, back problems, allergies, insomnia. History of Any Multi-Drug Resistant Organisms: None Reported Past Surgical History: Back Surgery, Section, Hysterectomy, Orthopedic Surgery, Tonsillectomy, Tubal Ligation Additional Past Surgical History / Comment(s): Bilateral carpal tunnel surgery, left breast benign biopsy X3, left knee arthroscopy. Right arthroscopic rotator cuff repair,marisa cataracts, pain procedures Past Anesthesia/Blood Transfusion Reactions: Postoperative Nausea & Vomiting (PONV) Additional Past Anesthesia/Blood Transfusion Reaction / Comment(s): "Sister slow to wake up." Past Psychological History: Depression Smoking Status: Never smoker Past Alcohol Use History: None Reported Past Drug Use History: None Reported - Past Family History Sister(s) Family Medical History: Cancer General Exam Limitations: no limitations General appearance: alert, in no apparent distress Head exam: Present: atraumatic, normocephalic, normal inspection Eye exam: Present: normal appearance, PERRL, EOMI. Absent: scleral icterus, conjunctival injection, periorbital swelling Neck exam: Present: normal inspection. Absent: tenderness, meningismus, lymphadenopathy Respiratory exam: Present: normal lung sounds bilaterally. Absent: respiratory distress, wheezes, rales, rhonchi, stridor Cardiovascular Exam: Present: regular rate, normal rhythm, normal heart sounds. Absent: systolic murmur, diastolic murmur, rubs, gallop, clicks GI/Abdominal exam: Present: soft, tenderness (Left lower quadrant tenderness to palpation), normal bowel sounds. Absent: distended, guarding, rebound, rigid Extremities exam: Present: normal inspection, full ROM, normal capillary refill. Absent: tenderness, pedal edema, joint swelling, calf tenderness Neurological exam: Present: alert, oriented X3 Psychiatric exam: Present: normal affect, normal mood Skin exam: Present: warm, dry, intact, normal color. Absent: rash Course Vital Signs 02/13/24 02/13/24 02/13/24 18:26 19:51 22:00 Temperature 98.7 F Pulse Rate 66 58 L 60 Respiratory 20 16 16 Rate Blood Pressure 99/56 126/47 124/75 O2 Sat by Pulse 99 95 Oximetry Medical Decision Making - Medical Decision Making Was pt. sent in by a medical professional or institution (, PA, [facility], urgent care, hospital, or intermediate...) When possible be specific @ -No Did you speak to anyone other than the patient for history (EMS, parent, family, police, friend...)? What history was obtained from this source @ -No Did you review nursing and triage notes (agree or disagree)? Why? @ -I reviewed and agree with nursing and triage notes Were old charts reviewed (outside hosp., previous admission, EMS record, old EKG, old radiological studies, urgent care reports/EKG's, intermediate records)? Report findings @ -No old charts were reviewed Differential Diagnosis (chest pain, altered mental status, abdominal pain women, abdominal pain men, vaginal bleeding, weakness, fever, dyspnea, syncope, headache, dizziness, GI bleed, back pain, seizure, CVA, palpatations, mental health, musculoskeletal)? @ -Differential Abdominal Pain Women: Appendicitis, Cholecystitis, diverticulosis, ischemic bowel, pancreatitis, hepatitis, UTI, gastroenteritis, AAA, incarcerated hernia, bowel obstruction, constipation, inflammatory bowel, hepatitis, peptic ulcer disease, splenic infarction, perforated viscus, vulvitis, ovarian torsion, PID, kidney stone, placenta abruption, this is not meant to be an all-inclusive list EKG interpreted by me (3pts min.). @ -None X-rays interpreted by me (1pt min.). @ -None done CT interpreted by me (1pt min.). @ -CT revealed acute uncomplicated sigmoid diverticulitis and postsurgical changes to spine and sacroiliac joints U/S interpreted by me (1pt. min.). @ -None done What testing was considered but not performed or refused? (CT, X-rays, U/S, labs)? Why? @ -None What meds were considered but not given or refused? Why? @ -None Did you discuss the management of the patient with other professionals (professionals i.e. , PA, [facility], lab, RT, psych nurse, social work lecturer, entertainment lawyer, teacher, digital controls technical officer, corrections caseworker)? Give summary @ -No Was smoking cessation discussed for >3mins.? @ -No Was critical care preformed (if so, how long)? @ -No Were there social determinants of health that impacted care today? How? (Homelessness, low income, unemployed, alcoholism, drug addiction, transportation, low edu. Level, literacy, decrease access to med. care, fdc, rehab)? @ -No Was there de-escalation of care discussed even if they declined (Discuss DNR or withdrawal of care, Hospice)? DNR status @ -No What co-morbidities impacted this encounter? (DM, HTN, Smoking, COPD, CAD, Cancer, CVA, ARF, Chemo, Hep., AIDS, mental health diagnosis, sleep apnea, morbid obesity)? @ -None Was patient admitted / discharged? Hospital course, mention meds given and route, prescriptions, significant lab abnormalities, going to OR and other pertinent info. @ -Patient was discharged. Patient was seen and evaluated for left lower quadrant abdominal pain worsening over the past couple months. Vital signs are stable. Physical examination is remarkable for left lower quadrant tenderness to palpation. Patient was given IV fluids and morphine for pain. Lab work including CBC, CMP, lactic acid, lipase, urine is unremarkable. White blood cell count is within normal limits. CT scan revealed acute uncomplicated sigmoid diverticulitis. Upon reevaluation, patient states symptoms have improved. Discussed diagnosis of acute uncomplicated diverticulitis. Discussed with patient that it is reasonable at this time to discharge patient with oral antibiotics. Prescribed Cipro and Flagyl due to penicillin allergy. Supportive care discussed. Advised clear liquid diet for 24 hours, then low fiber foods until symptoms resolved. Strict return parameters discussed. Patient shows understanding and agrees with plan. Case was discussed with my attending Dr. Ignacio walter. Patient discharged in stable condition. Undiagnosed new problem with uncertain prognosis? @ -No Drug Therapy requiring intensive monitoring for toxicity (Heparin, Nitro, Insulin, Cardizem)? @ -No Were any procedures done? @ -No Diagnosis/symptom? @ -Acute uncomplicated diverticulitis Acute, or Chronic, or Acute on Chronic? @ -Acute Uncomplicated (without systemic symptoms) or Complicated (systemic symptoms)? @ -Uncomplicated Side effects of treatment? @ -No Exacerbation, Progression, or Severe Exacerbation? @ -No Poses a threat to life or bodily function? How? (Chest pain, [place], [place], pneumonia, PE, COPD, DKA, ARF, appy, cholecystitis, CVA, Diverticulitis, Homicidal, Suicidal, threat to staff... and all critical care pts) @ -Unlikely at this time - Lab Data Result diagrams: 02/13/24 19:16 02/13/24 19:16 Lab Results 02/13/24 02/13/24 02/13/24 Range/Units 19:16 19:16 19:16 WBC 10.2 (3.8-10.6) k/uL RBC 4.41 (3.80-5.40) m/uL Hgb 13.9 (11.4-16.0) gm/dL Hct 41.1 (34.0-46.0) % MCV 93.1 (80.0-100.0) fL MCH 31.5 (25.0-35.0) pg MCHC 33.8 (31.0-37.0) g/dL RDW 13.0 (11.5-15.5) % Plt Count 341 (150-450) k/uL MPV 7.9 Neutrophils % 73 % Lymphocytes % 15 % Monocytes % 5 % Eosinophils % 5 % Basophils % 1 % Neutrophils # 7.5 (1.3-7.7) k/uL Lymphocytes # 1.5 (1.0-4.8) k/uL Monocytes # 0.5 (0-1.0) k/uL Eosinophils # 0.5 (0-0.7) k/uL Basophils # 0.1 (0-0.2) k/uL Sodium 131 L (137-145) mmol/L Potassium 4.3 (3.5-5.1) mmol/L Chloride 102 (98-107) mmol/L Carbon Dioxide 24 (22-30) mmol/L Anion Gap 5 mmol/L BUN 15 (7-17) mg/dL Creatinine 0.68 (0.52-1.04) mg/dL Est GFR (CKD-EPI)AfAm >90 (>60 ml/min/1.73 sqM) Est GFR (CKD-EPI)NonAf 86 (>60 ml/min/1.73 sqM) Glucose 87 (74-99) mg/dL Plasma Lactic Acid [place] 0.6 L (0.7-2.0) mmol/L Calcium 9.0 (8.4-10.2) mg/dL Total Bilirubin 0.4 (0.2-1.3) mg/dL AST 35 (14-36) U/L ALT 22 (4-34) U/L Alkaline Phosphatase 44 (38-126) U/L Total Protein 6.3 (6.3-8.2) g/dL Albumin 3.9 (3.5-5.0) g/dL Lipase 207 (23-300) U/L Urine Color Urine Appearance (Clear) Urine pH (5.0-8.0) Ur Specific [place] (1.001-1.035) Urine Protein (Negative) Urine Glucose (UA) (Negative) Urine Ketones (Negative) Urine Blood (Negative) Urine Nitrite (Negative) Urine Bilirubin (Negative) Urine Urobilinogen (<2.0) mg/dL Ur Leukocyte Esterase (Negative) 02/13/24 Range/Units 21:03 WBC (3.8-10.6) k/uL RBC (3.80-5.40) m/uL Hgb (11.4-16.0) gm/dL Hct (34.0-46.0) % MCV (80.0-100.0) fL MCH (25.0-35.0) pg MCHC (31.0-37.0) g/dL RDW (11.5-15.5) % Plt Count (150-450) k/uL MPV Neutrophils % % Lymphocytes % % Monocytes % % Eosinophils % % Basophils % % Neutrophils # (1.3-7.7) k/uL Lymphocytes # (1.0-4.8) k/uL Monocytes # (0-1.0) k/uL Eosinophils # (0-0.7) k/uL Basophils # (0-0.2) k/uL Sodium (137-145) mmol/L Potassium (3.5-5.1) mmol/L Chloride (98-107) mmol/L Carbon Dioxide (22-30) mmol/L Anion Gap mmol/L BUN (7-17) mg/dL Creatinine (0.52-1.04) mg/dL Est GFR (CKD-EPI)AfAm (>60 ml/min/1.73 sqM) Est GFR (CKD-EPI)NonAf (>60 ml/min/1.73 sqM) Glucose (74-99) mg/dL Plasma Lactic Acid [place] (0.7-2.0) mmol/L Calcium (8.4-10.2) mg/dL Total Bilirubin (0.2-1.3) mg/dL AST (14-36) U/L ALT (4-34) U/L Alkaline Phosphatase (38-126) U/L Total Protein (6.3-8.2) g/dL Albumin (3.5-5.0) g/dL Lipase (23-300) U/L Urine Color Colorless Urine Appearance Clear (Clear) Urine pH 5.5 (5.0-8.0) Ur Specific [place] 1.011 (1.001-1.035) Urine Protein Negative (Negative) Urine Glucose (UA) Negative (Negative) Urine Ketones Negative (Negative) Urine Blood Negative (Negative) Urine Nitrite Negative (Negative) Urine Bilirubin Negative (Negative) Urine Urobilinogen <2.0 (<2.0) mg/dL Ur Leukocyte Esterase Negative (Negative) Disposition Clinical Impression: Acute diverticulitis Disposition: HOME SELF-CARE Condition: Stable Instructions (If sedation given, give patient instructions): Diverticulitis (ED), Diverticulitis Diet (ED) Additional Instructions: Please take antibiotics as prescribed. Clear liquid diet for 24 hours, then low fiber foods until symptoms resolved. Please return to the Emergency Department if symptoms worsen or any other concerns. Prescriptions: Ciprofloxacin HCl [Cipro] 500 mg PO BID 10 Days #20 tab metroNIDAZOLE [Flagyl] 500 mg PO TID 10 Days #30 tab Is patient prescribed a controlled substance at d/c from ED?: No Referrals: Thomas Toussaint DO [Primary Care Provider] - 1-2 days Time of Disposition: 22:08
[2024-02-13] MEDS: SODIUM CHLORIDE 0.9% 1,000 ML IV STA (19:19)
[2024-02-13] MEDS: MORPHINE SULFATE 2 MG/ML SYRINGE IVP ONE (19:20)
[2024-02-13] MEDS: ONDANSETRON 4 MG/2 ML VIAL IVP STA (19:20)
[2024-02-13 19:53] VITALS: RESP 16
[2024-02-13 20:18] LABS: ALT 22 U/L (4-34); AST 35 U/L (14-36); African American GFR (CKD) >90 (>60 ml/min/1.73 sqM); Albumin 3.9 g/dL (3.5-5.0); Alkaline Phosphatase 44 U/L (38-126); Anion Gap 5 mmol/L; Blood Urea Nitrogen 15 mg/dL (7-17); Carbon Dioxide 24 mmol/L (22-30); Chloride 102 mmol/L (98-107); Glucose 87 mg/dL (74-99); Lipase 207 U/L (23-300); Non-African American GFR(CKD) 86 (>60 ml/min/1.73 sqM); Potassium 4.3 mmol/L (3.5-5.1); Sodium 131 mmol/L (137-145); Total Bilirubin 0.4 mg/dL (0.2-1.3); Total Protein 6.3 g/dL (6.3-8.2)
[2024-02-13 20:21] LABS: Basophils # (A) 0.1 k/uL (0-0.2); Basophils % (A) 1 %; Eosinophils # (A) 0.5 k/uL (0-0.7); Eosinophils % (A) 5 %; HCT 41.1 % (34.0-46.0); HGB 13.9 gm/dL (11.4-16.0); Lymphocytes # (A) 1.5 k/uL (1.0-4.8); Lymphocytes % (A) 15 %; MCH 31.5 pg (25.0-35.0); MCHC 33.8 g/dL (31.0-37.0); MCV 93.1 fL (80.0-100.0); Mean Platelet Volume 7.9; Monocytes # (A) 0.5 k/uL (0-1.0); Monocytes % (A) 5 %; Neutrophils # (A) 7.5 k/uL (1.3-7.7); Neutrophils % (A) 73 %; Platelet Count 341 k/uL (150-450); RBC 4.41 m/uL (3.80-5.40); WBC 10.2 k/uL (3.8-10.6)
--- NOTE | 2024-02-13 21:15 | CT ---
EXAMINATION TYPE: CT abdomen pelvis w con CT DLP: 587.9 mGycm, Automated exposure control for dose reduction was used. DATE OF EXAM: 02/13/2024 9:03 PM COMPARISON: None CLINICAL INDICATION:Female, 73 years old with history of Left lower quadrant abdominal pain, divertic ulitis; LLQ pain. Hx of diverticulitis. TECHNIQUE: Axial CT abdomen pelvis w con;Sagittal and coronal reformats were created on a separate w orkstation. Contrast used:100 ml mL of Isovue 300 with IV Contrast, (none if empty) Oral contrast used: without Oral Contrast (none if empty) FINDINGS: LOWER CHEST: Unremarkable ABDOMEN LIVER: Unremarkable scattered cysts throughout the liver one with peripheral higher density possible opacifications in left hepatic lobe measuring up to 29 mm. GALLBLADDER AND BILE DUCTS: Dilation of the extra hepatic biliary system measuring up to 9 mm. No obs tructing cholelithiasis identified. PANCREAS: Unremarkable. SPLEEN: Unremarkable. ADRENAL GLANDS: Unremarkable. KIDNEYS AND URETERS: No evidence of hydronephrosis or renal calculus. The ureters are unremarkable. PELVIS BLADDER: Unremarkable REPRODUCTIVE: Unremarkable. ABDOMEN & PELVIS STOMACH AND BOWEL: There are colonic diverticula present, one of which has adjacent fat stranding july nges involving the sigmoid colon series 202 image 74. No organizing fluid collection or evidence of p neumoperitoneum. No evidence of bowel obstruction. Scattered colonic diverticula. PERITONEUM/RETROPERITONEUM: No evidence of pneumoperitoneum or free fluid. VASCULATURE: No evidence of aortic aneurysm. MUSCULOSKELETAL: No acute osseous abnormalities, multilevel degeneration changes throughout spine wit h fixation screws at the sacroiliac joints bilaterally, also extends at the levels of L4 and L5 with right laminectomy changes at L4. LYMPH NODES: No gross evidence for lymphadenopathy. SOFT TISSUE/ABDOMINAL WALL: Unremarkable IMPRESSION: 1. Acute uncomplicated sigmoid diverticulitis. 2. Postsurgical changes to the spine and sacroiliac joints with hardware intact.
[2024-02-13 21:27] LABS: Appearance,Urine Clear (Clear); Bilirubin,Urine Negative (Negative); Blood,Urine Negative (Negative); Color,Urine Colorless; Glucose,Urine (UA) Negative (Negative); Ketones,Urine Negative (Negative); Leukocyte Esterase,Urine Negative (Negative); Nitrite,Urine Negative (Negative); PH, Urine 5.5 (5.0-8.0); Protein,Urine Negative (Negative); Specific Gravity,Urine 1.011 (1.001-1.035); Urobilinogen,Urine <2.0 mg/dL (<2.0)
[2024-02-13 22:03] VITALS: BP 124/75; PULSE 60
[2024-02-13] MEDS: CIPROFLOXACIN HCL 500 MG TAB PO STA (22:23)
[2024-02-13] MEDS: metroNIDAZOLE 500 MG TAB PO STA (22:23)
== END 2024-02-13 22:26 | disposition home or self-care (01) ==
LOC: EC 18:19
DX: K57.32 Diverticulitis of large intestine without perforation or abscess without bleeding (principal); Z88.0 Allergy status to penicillin; Z88.5 Allergy status to narcotic agent; Z88.8 Allergy status to other drugs, medicaments and biological substances
CPT/HCPCS: 36415; 80053; 83605; 83690; 85025; 81003; 74177; 99284; 96374; 96375; 96361; J2405; J2270

== ENCOUNTER → 2024-05-16 | Outpatient (CLI) | payer MEDICARE, OTHER ==
--- NOTE | 2024-05-16 14:38 | CT ---
EXAMINATION TYPE: CT lumbar spine wo con CT DLP: 372.6 mGycm, Automated exposure control for dose reduction was used. DATE OF EXAM: 05/16/2024 1:43 PM COMPARISON: CT abdomen and pelvis 02/13/2024, MRI lumbar spine 05/10/2023. CLINICAL INDICATION:Female, 73 years old with history of M47.816 M48.061; PHH, low back pain TECHNIQUE: Multiple axial images were obtained from the midportion of T11 through the sacroiliac sharifa nts. Soft tissue and bone windows in coronal and sagittal planes were obtained and reviewed. Contrast used: none. Oral contrast used: none. FINDINGS: Alignment: There are 5 lumbar type vertebral bodies. Minimal grade 1 anterolisthesis of L4 on L5. No pars defects. Mild retrolisthesis of L5 on S1. Bone: Postsurgical changes with right-sided pedicular screw and enma at L4-L5. Disc fusion cage L4-L5 . Additional left pedicular screw at L5. Bilateral changes oriented SI joint screws. Laminectomy defe ct at L4 on the right. No evidence of fracture is identified. Discs: T12-L1: No spinal canal or neural foraminal stenosis is identified. L1-L2: No spinal canal or neural foraminal stenosis is identified. L2-L3: No spinal canal or neural foraminal stenosis is identified. L3-L4: Disc bulge with minimal effacement of the anterior thecal sac. Bilateral facet arthropathy. Mi ld bilateral neural foraminal stenosis. L4-L5: No spinal canal or neural foraminal stenosis is identified. L5-S1: No spinal canal stenosis. Mild retrolisthesis with bilateral facet arthropathy resulting in mi ld right and moderate left neural foraminal stenosis. Other: Colonic diverticulosis. IMPRESSION: 1. No evidence for spinal fracture. 2. Postsurgical changes of the lumbar spine and bilateral SI joints. However appears intact. 3. No significant central canal stenosis. 4. Varying degrees of neural foraminal stenosis as described above. [facility], , 05/16/2024 2:36 PM
== END | disposition home or self-care (01) ==
LOC: RADCTMAIN 13:03
PROVIDERS: ATTEND Orthopaedic Surgery
CPT/HCPCS: 72131

== ENCOUNTER 2024-07-27 11:12 | Emergency (ER) | payer MEDICARE, OTHER ==
--- NOTE | 2024-07-27 11:39 | ED ---
General Adult HPI - General Chief complaint: Dizziness Stated complaint: dizziness, weakness Time Seen by Provider: 07/27/24 11:24 Source: patient, family, RN notes reviewed Mode of arrival: wheelchair Limitations: no limitations - History of Present Illness Initial comments: Patient is a 73-year-old female present emergency department with dizziness. Onset of symptoms around 2 days ago. Patient states symptoms are present when she gets up and tried to move around. Patient feels a spinning type sensation. Patient states symptoms are significant improved with lying down and keeping her head still or closing her eyes. Patient did have similar symptoms years ago after a shoulder surgery. No confusion. No weakness. No speech problems. Patient has fallen a couple of times with minor injuries. Tetanus immunization is up-to-date - Related Data Home Medications Medication Instructions Recorded Confirmed Ipratropium Beaver [Ipratropium 2 sprays PO DAILY PRN 07/12/17 07/27/24 Beaver 0.03%] Multivitamins, Thera [Multivitamin 1 tab PO DAILY 07/12/17 07/27/24 (formulary)] amLODIPine BESYLATE [Norvasc] 5 mg PO HS 07/12/17 07/27/24 estradioL [Estrace] 1 mg PO DAILY 07/12/17 07/27/24 lisinopriL [Zestril] 20 mg PO DAILY 07/12/17 07/27/24 Melatonin [Melatonin Tr] 10 mg PO HS 11/25/21 07/27/24 Calcium Carbonate/Vitamin D3 1 cap PO DAILY 07/13/23 07/27/24 [Calcium 600 mg-D3 10 Mcg (400 Iu)] Eszopiclone [Lunesta] 2 mg PO HS 07/13/23 07/27/24 L.acidoph,Paracasei, B.lactis 1 cap PO DAILY 07/13/23 07/27/24 [Probiotic] Gabapentin 300 mg PO QID PRN 08/16/23 07/27/24 Magnesium Oxide [Mag-Ox] 400 mg PO BID 11/26/23 07/27/24 Ibuprofen 800 mg PO TID PRN 12/10/23 07/27/24 Aspirin [Eureka Aspirin EC] 81 mg PO DAILY 07/27/24 07/27/24 Ferrous Sulfate [Feosol] 325 mg PO DAILY 07/27/24 07/27/24 Mv-Min/FA/Vit K/Lutein/Zeaxant 1 cap PO BID 07/27/24 07/27/24 [Preservision Areds 2 Plus Mv] Naproxen Sodium [Aleve] 220 mg PO BID PRN 07/27/24 07/27/24 Nortriptyline [Pamelor] 50 mg PO HS 07/27/24 07/27/24 Vitamin B Complex 1 cap PO DAILY 07/27/24 07/27/24 atenoloL [Tenormin] 25 mg PO BID 07/27/24 07/27/24 Previous Rx's Medication Instructions Recorded Meclizine [Antivert] 25 mg PO TID PRN #12 tab 07/27/24 Metoclopramide HCl [Reglan] 10 mg PO Q6HR PRN #15 tablet 07/27/24 Allergies Allergy/AdvReac Type Severity Reaction Status Date / Time amoxicillin Allergy Rash/Hives Verified 07/27/24 13:19 codeine Allergy agitated,re Verified 07/27/24 13:19 stless prochlorperazine Allergy agitated,re Verified 07/27/24 13:19 [From Compazine] stless Review of Systems ROS Statement: Those systems with pertinent positive or pertinent negative responses have been documented in the HPI. ROS Other: All systems not noted in ROS Statement are negative. Constitutional: Denies: fever Eyes: Denies: eye pain ENT: Denies: ear pain Respiratory: Denies: cough, dyspnea Cardiovascular: Denies: chest pain Endocrine: Denies: fatigue Gastrointestinal: Denies: abdominal pain Neurological: Reports: as per HPI, vertigo. Denies: headache, weakness, confusion Past Medical History Past Medical History: Hypertension, Osteoarthritis (OA) Additional Past Medical History / Comment(s): Diverticulitis, back problems, allergies, insomnia. History of Any Multi-Drug Resistant Organisms: None Reported Past Surgical History: Back Surgery, Section, Hysterectomy, Orthopedic Surgery, Tonsillectomy, Tubal Ligation Additional Past Surgical History / Comment(s): Bilateral carpal tunnel surgery, left breast benign biopsy X3, left knee arthroscopy. Right arthroscopic rotator cuff repair,marisa cataracts, pain procedures Past Anesthesia/Blood Transfusion Reactions: Postoperative Nausea & Vomiting (PONV) Additional Past Anesthesia/Blood Transfusion Reaction / Comment(s): "Sister slow to wake up." Past Psychological History: Depression Smoking Status: Never smoker Past Alcohol Use History: None Reported Past Drug Use History: None Reported - Past Family History Sister(s) Family Medical History: Cancer General Exam Limitations: no limitations General appearance: alert, in no apparent distress Head exam: Present: normocephalic Eye exam: Present: normal appearance, PERRL, EOMI. Absent: nystagmus ENT exam: Present: normal oropharynx Neck exam: Present: normal inspection. Absent: tenderness Respiratory exam: Present: normal lung sounds bilaterally Cardiovascular Exam: Present: regular rate, normal rhythm GI/Abdominal exam: Present: soft. Absent: tenderness Extremities exam: Present: normal inspection. Absent: pedal edema, calf tenderness Neurological exam: Present: alert, oriented X3, CN II-XII intact. Absent: motor sensory deficit Expanded Neurological exam: Present: protecting the airway Speech: Present: fluid speech Cranial nerves: EOM's Intact: Normal Cerebellar function: Finger to Nose: Normal Motor strength exam: RUE: 5, LUE: 5, RLE: 5, LLE: 5 Eye Response: (4) open spontaneously Motor Response: (6) obeys commands Verbal Response: (5) oriented Psychiatric exam: Present: normal affect, normal mood Skin exam: Present: abrasion (Bilateral hands), other (Mild ecchymosis right forehead) Course Vital Signs 07/27/24 07/27/24 11:18 11:40 Temperature 97.5 F L 97.6 F Pulse Rate 55 L 61 Respiratory 18 18 Rate Blood Pressure 88/52 115/89 O2 Sat by Pulse 94 L 95 Oximetry EKG Findings - EKG Results: EKG: interpreted by ERMD, sinus rhythm, normal axis, normal QRS, normal ST/T EKG shows: bradycardia Medical Decision Making - Medical Decision Making Was pt. sent in by a medical professional or institution (, PA, PRESIDENT PRACTICING UROLOGIST, urgent care, hospital, or [facility]...) When possible be specific @ -No Did you speak to anyone other than the patient for history (EMS, parent, family, police, friend...)? What history was obtained from this source @ -Daughter is present helps provide history including duration of symptoms Did you review nursing and triage notes (agree or disagree)? Why? @ -I reviewed and agree with nursing and triage notes Were old charts reviewed (outside hosp., previous admission, EMS record, old EKG, old radiological studies, urgent care reports/EKG's, [facility] records)? Report findings @ -No old charts were reviewed Differential Diagnosis (chest pain, altered mental status, abdominal pain women, abdominal pain men, vaginal bleeding, weakness, fever, dyspnea, syncope, headache, dizziness, GI bleed, back pain, seizure, CVA, palpatations, mental health, musculoskeletal)? @ -Differential Dizziness: Benign paroxysmal positional Vertigo, Meniere's disease, otitis media, acoustic neuroma, vertebrobasilar insufficiency, cerebellar stroke, encephalitis, hyp ovolemic, arrhythmia, coronary artery syndrome, anemia, this is not meant to be an all-inclusive list EKG interpreted by me (3pts min.). @ -As above X-rays interpreted by me (1pt min.). @ -Chest x-ray shows no acute process CT interpreted by me (1pt min.). @ -CT scan of the brain does not reveal acute abnormality U/S interpreted by me (1pt. min.). @ -None done What testing was considered but not performed or refused? (CT, X-rays, U/S, labs)? Why? @ -None What meds were considered but not given or refused? Why? @ -None Did you discuss the management of the patient with other professionals (professionals i.e. , PA, PRESIDENT PRACTICING UROLOGIST, lab, RT, psych nurse, executive secretary social welfare, broke beater machine operator, teacher, chief fundraising officer, field nurse case manager)? Give summary @ -No Was smoking cessation discussed for >3mins.? @ -No Was critical care preformed (if so, how long)? @ -No Were there social determinants of health that impacted care today? How? (Homelessness, low income, unemployed, alcoholism, drug addiction, transportation, low edu. Level, literacy, decrease access to med. care, prison, rehab)? @ -No Was there de-escalation of care discussed even if they declined (Discuss DNR or withdrawal of care, Hospice)? DNR status @ -No What co-morbidities impacted this encounter? (DM, HTN, Smoking, COPD, CAD, Cancer, CVA, ARF, Chemo, Hep., AIDS, mental health diagnosis, sleep apnea, morbid obesity)? @ -None Was patient admitted / discharged? Hospital course, mention meds given and route, prescriptions, significant lab abnormalities, going to OR and other pertinent info. @ -Patient presents with dizziness. Patient feels much better after medications. Evaluation otherwise unremarkable. Patient ambulate through the hallway without difficulty and would like to be discharged. Patient states mild return of symptoms when she finished ambulating. Patient is receptive to double dose of medications prior to discharge. Patient and family updated on results and need for follow-up. Additionally recommended cutting her atenolol dose in half and close follow-up with her longwall foreman as well. Undiagnosed new problem with uncertain prognosis? @ -No Drug Therapy requiring intensive monitoring for toxicity (Heparin, Nitro, Insulin, Cardizem)? @ -No Were any procedures done? @ -No Diagnosis/symptom? @ -Dizziness Acute, or Chronic, or Acute on Chronic? @ -Acute Uncomplicated (without systemic symptoms) or Complicated (systemic symptoms)? @ -Complicated with borderline bradycardia and borderline hypotension Side effects of treatment? @ -No Exacerbation, Progression, or Severe Exacerbation? @ -No Poses a threat to life or bodily function? How? (Chest pain, USA, CA, pneumonia, PE, COPD, DKA, ARF, appy, cholecystitis, CVA, Diverticulitis, Homicidal, Suicidal, threat to staff... and all critical care pts) @ -No - Lab Data Result diagrams: 07/27/24 11:49 07/27/24 11:49 Lab Results 07/27/24 07/27/24 07/27/24 Range/Units 11:49 11:49 11:49 WBC 5.4 (3.8-10.6) k/uL RBC 4.06 (3.80-5.40) m/uL Hgb 12.6 (11.4-16.0) gm/dL Hct 37.0 (34.0-46.0) % MCV 91.3 (80.0-100.0) fL MCH 31.0 (25.0-35.0) pg MCHC 33.9 (31.0-37.0) g/dL RDW 13.3 (11.5-15.5) % Plt Count 282 (150-450) k/uL MPV 7.7 Neutrophils % 66 % Lymphocytes % 19 % Monocytes % 7 % Eosinophils % 6 % Basophils % 1 % Neutrophils # 3.6 (1.3-7.7) k/uL Lymphocytes # 1.0 (1.0-4.8) k/uL Monocytes # 0.4 (0-1.0) k/uL Eosinophils # 0.3 (0-0.7) k/uL Basophils # 0.0 (0-0.2) k/uL PT 11.4 (10.0-12.5) sec INR 1.0 (<1.2) APTT 24.4 (22.0-30.0) sec Sodium 133 L (137-145) mmol/L Potassium 4.6 (3.5-5.1) mmol/L Chloride 99 (98-107) mmol/L Carbon Dioxide 30 (22-30) mmol/L Anion Gap 4 mmol/L BUN 16 (7-17) mg/dL Creatinine 1.02 (0.52-1.04) mg/dL Est GFR (CKD-EPI)AfAm 63 (>60 ml/min/1.73 sqM) Est GFR (CKD-EPI)NonAf 55 (>60 ml/min/1.73 sqM) Glucose 106 H (74-99) mg/dL Calcium 9.8 (8.4-10.2) mg/dL Total Bilirubin 0.4 (0.2-1.3) mg/dL AST 37 H (14-36) U/L ALT 26 (4-34) U/L Alkaline Phosphatase 58 (38-126) U/L Creatine Kinase 156 H (30-135) U/L Total Protein 6.6 (6.3-8.2) g/dL Albumin 4.1 (3.5-5.0) g/dL Disposition Clinical Impression: Dizziness Disposition: HOME SELF-CARE Condition: Stable Instructions (If sedation given, give patient instructions): Dizziness (ED) Additional Instructions: Decrease your atenolol dose by half in the morning and by half in the evening. Please also follow-up with your longwall foreman in the next couple of days for recheck on heart rate and blood pressure. Prescription for Antivert as well as Reglan sent to pharmacy. Return for increased dizziness, unable to walk, confusion, off balance, worsening symptoms or any other concerns. Prescriptions: Meclizine [Antivert] 25 mg PO TID PRN #12 tab PRN Reason: dizziness Metoclopramide HCl [Reglan] 10 mg PO Q6HR PRN #15 tablet PRN Reason: Nausea Is patient prescribed a controlled substance at d/c from ED?: No Referrals: Thomas Toussaint DO [Primary Care Provider] - 1-2 days Time of Disposition: 13:52
[2024-07-27] MEDS: MECLIZINE 12.5 MG TAB PO STA (11:52)
[2024-07-27] MEDS: METOCLOPRAMIDE 5 MG/ML 2 ML VIAL IVP STA ×2 (11:53→14:13)
[2024-07-27 11:57] LABS: Basophils % (A) 1 %; Eosinophils # (A) 0.3 k/uL (0-0.7); Eosinophils % (A) 6 %; HGB 12.6 gm/dL (11.4-16.0); Lymphocytes % (A) 19 %; MCHC 33.9 g/dL (31.0-37.0); MCV 91.3 fL (80.0-100.0); Mean Platelet Volume 7.7; Monocytes # (A) 0.4 k/uL (0-1.0); Monocytes % (A) 7 %; Neutrophils # (A) 3.6 k/uL (1.3-7.7); Neutrophils % (A) 66 %; Platelet Count 282 k/uL (150-450); RBC 4.06 m/uL (3.80-5.40); RDW 13.3 % (11.5-15.5); WBC 5.4 k/uL (3.8-10.6)
[2024-07-27 12:06] LABS: Partial Thromboplastin Time 24.4 sec (22.0-30.0); Prothrombin Time 11.4 sec (10.0-12.5)
[2024-07-27 12:15] LABS: ALT 26 U/L (4-34); AST 37 U/L (14-36); African American GFR (CKD) 63 (>60 ml/min/1.73 sqM); Albumin 4.1 g/dL (3.5-5.0); Alkaline Phosphatase 58 U/L (38-126); Anion Gap 4 mmol/L; Blood Urea Nitrogen 16 mg/dL (7-17); Calcium 9.8 mg/dL (8.4-10.2); Carbon Dioxide 30 mmol/L (22-30); Chloride 99 mmol/L (98-107); Creatine Kinase 156 U/L (30-135); Glucose 106 mg/dL (74-99); Non-African American GFR(CKD) 55 (>60 ml/min/1.73 sqM); Potassium 4.6 mmol/L (3.5-5.1); Sodium 133 mmol/L (137-145); Total Bilirubin 0.4 mg/dL (0.2-1.3); Total Protein 6.6 g/dL (6.3-8.2)
--- NOTE | 2024-07-27 12:49 | CT ---
EXAMINATION TYPE: CT brain wo con CT DLP: 1100.6 mGycm, Automated exposure control for dose reduction was used. DATE OF EXAM: 07/27/2024 12:43 PM COMPARISON: None. CLINICAL INDICATION:Female, 73 years old with history of Neuro deficit, acute, stroke suspected, Dizz iness, weakness, frequent falls over last couple days TECHNIQUE: Brain: Multiple axial CT images of the brain were obtained without IV contrast. . Coronal and sagitta l reformats reviewed. FINDINGS: Brain: Extra-axial spaces: No abnormal extra-axial fluid collections. Ventricular system: Within normal limits Cerebral parenchyma: Age-appropriate cerebral volume loss. No acute intraparenchymal hemorrhage or ma ss effect. The gomes-white junction is well differentiated. Scattered hypoattenuating areas are seen within the periventricular white matter. Cerebellum: Unremarkable. Mass effect: No evidence of midline shift. Intracranial vasculature: unremarkable Soft tissues: Normal. Calvarium/osseous structures: No depressed skull fracture. Paranasal sinuses and mastoid air cells: Clear, aplasia of the left frontal sinus. Hypoplastic right frontal sinus. Visualized orbits: Bilateral aphakia IMPRESSION: 1. No acute intracranial process. 2. Nonspecific white matter changes, likely secondary to chronic small vessel ischemic disease. [facility], , 07/27/2024 12:47 PM
--- NOTE | 2024-07-27 12:50 | XR ---
EXAMINATION TYPE: XR chest 2V DATE OF EXAM: 07/27/2024 COMPARISON: NONE CLINICAL INDICATION: Female, 73 years old with history of altered mental status; , TECHNIQUE: XR chest 2V views of the chest. FINDINGS: The lungs are clear and there is no pneumothorax, pleural effusion, or focal pneumonia. Heart size normal and no overt failure. Osseous structures demonstrate hypertrophic and degenerative changes of the spine. Postsurgical change right shoulder. IMPRESSION: 1. No acute process. [facility], , 07/27/2024 12:48 PM
--- NOTE | 2024-07-27 13:03 | CT ---
EXAMINATION TYPE: CT angio head neck CT DLP: 359 mGycm, Automated exposure control for dose reduction was used. DATE OF EXAM: 07/27/2024 12:57 PM COMPARISON: CT brain of the same date. CLINICAL INDICATION:Female, 73 years old with history of Neuro deficit, acute, stroke suspected; PHH, Dizziness, weakness, multiple falls in last couple days TECHNIQUE: Axially acquired helical CT angiogram of the head and neck was obtained with contrast util izing 75 cc of Isovue-370 administered intravenously. Axial images are supplemented with 3D reconstru ctions which were post-processed at an independent workstation. NASCET criteria used. FINDINGS: CTA HEAD: No evidence of acute intracranial hemorrhage, mass effect, or midline shift. The ventricles, sulci, a nd cisterns are unremarkable. The visualized portions of the internal carotid arteries, middle cerebral arteries, anterior cerebral arteries, and posterior cerebral arteries are patent. The basilar and vertebral arteries are patent. CTA NECK: Right Carotid System: The common carotid artery and external carotid artery are patent. The carotid bifurcation demonstrate s no evidence of hemodynamically significant stenosis. The remaining portions of the internal carotid artery demonstrate normal size without significant narrowing. Left Carotid System: The common carotid artery and external carotid artery are patent. The carotid bifurcation demonstrate s no evidence of hemodynamically significant stenosis. The remaining portions of the internal carotid artery demonstrate normal size without significant narrowing. Vertebral arteries are patent without evidence hemodynamically significant stenosis. Dominant left ve rtebral artery. There is a three-vessel aortic arch. The origins of the great vessels are patent. No evidence of hemo dynamically significant stenosis. Mildly dilated main pulmonary artery measuring up to 3.1 cm in diam eter which can be seen with pulmonary arterial hypertension. Postsurgical changes from right shoulder arthroplasty. Multilevel degenerative changes of the cervica l spine. IMPRESSION: 1. No evidence of dissection of the cervical internal carotid arteries or vertebral arteries or any e vidence of significant stenosis at the carotid bifurcations. 2. No evidence of high-grade stenosis or intracranial aneurysm. [facility], , 07/27/2024 1:01 PM
[2024-07-27] MEDS ORDERED: MECLIZINE 12.5 MG TAB PO STA (13:49)
[2024-07-27 14:12] VITALS: BP 93/54
[2024-07-27] MEDS: MECLIZINE 25 MG TAB PO STA (14:12)
[2024-07-27 14:31] VITALS: PULSE 51; RESP 18; TEMP 97.9
== END 2024-07-27 14:37 | disposition home or self-care (01) ==
LOC: EC 11:12
DX: R42 Dizziness and giddiness (principal); Z88.0 Allergy status to penicillin; Z88.5 Allergy status to narcotic agent; Z88.8 Allergy status to other drugs, medicaments and biological substances
CPT/HCPCS: 36415; 93005; 80053; 82550; 85025; 85610; 85730; 71046; 70496; 70450; 70498; 99285; 96374; 96376; J2765; Q9967

== ENCOUNTER 2024-07-27 19:29 | Emergency (ER) | payer MEDICARE, OTHER ==
[2024-07-27 20:17] LABS: Glucose,Whole Blood 106 mg/dL (70-110)
--- NOTE | 2024-07-27 20:34 | ED ---
General Adult HPI - General Chief complaint: Dizziness Stated complaint: abn labs Time Seen by Provider: 07/27/24 19:46 Source: patient Mode of arrival: wheelchair Limitations: no limitations - History of Present Illness Initial comments: Patient is a 73 y/o female with PMH HTN presenting for dizziness. Patient states over the course of the last week has had decreased appetite and dizziness upon standing. Early this morning she became so dizzy she fell forward and put her head through the plaster wall. She did not lose consciousness and came to the emergency department afterwards for evaluation. Ultimately she was given medication for dizziness and discharged home when she felt better. She also talk to her primary care provider who told her to decrease her atenolol by splitting her dose in half and taking half in the morning and half in the evening instead of 2 doses of it. Denies additional increases in her medication or changes to her antihypertensives. She denies any fevers or chills, chest pain or shortness of breath, changes in vision, new numbness, weakness, confusion, cough, lower extremity swelling, abdominal pain, dysuria frequency, episodes of emesis, diarrhea hematochezia or melena. She is not on blood thinners but is on a baby aspirin daily. - Related Data Home Medications Medication Instructions Recorded Confirmed Ipratropium [place] [Ipratropium 2 sprays PO DAILY PRN 07/12/17 07/27/24 [place] 0.03%] Multivitamins, Thera [Multivitamin 1 tab PO DAILY 07/12/17 07/27/24 (formulary)] amLODIPine BESYLATE [Norvasc] 5 mg PO HS 07/12/17 07/27/24 estradioL [Estrace] 1 mg PO DAILY 07/12/17 07/27/24 lisinopriL [Zestril] 20 mg PO DAILY 07/12/17 07/27/24 Melatonin [Melatonin Tr] 10 mg PO HS 11/25/21 07/27/24 Calcium Carbonate/Vitamin D3 1 cap PO DAILY 07/13/23 07/27/24 [Calcium 600 mg-D3 10 Mcg (400 Iu)] Eszopiclone [Lunesta] 2 mg PO HS 07/13/23 07/27/24 L.acidoph,Paracasei, B.lactis 1 cap PO DAILY 07/13/23 07/27/24 [Probiotic] Gabapentin 300 mg PO QID PRN 08/16/23 07/27/24 Magnesium Oxide [Mag-Ox] 400 mg PO BID 11/26/23 07/27/24 Ibuprofen 800 mg PO TID PRN 12/10/23 07/27/24 Aspirin [[place]ira Aspirin EC] 81 mg PO DAILY 07/27/24 07/27/24 Ferrous Sulfate [Feosol] 325 mg PO DAILY 07/27/24 07/27/24 Mv-Min/FA/Vit K/Lutein/Zeaxant 1 cap PO BID 07/27/24 07/27/24 [Preservision Areds 2 Plus Mv] Naproxen Sodium [Aleve] 220 mg PO BID PRN 07/27/24 07/27/24 Nortriptyline [Pamelor] 50 mg PO HS 07/27/24 07/27/24 Vitamin B Complex 1 cap PO DAILY 07/27/24 07/27/24 atenoloL [Tenormin] 25 mg PO BID 07/27/24 07/27/24 Previous Rx's Medication Instructions Recorded Meclizine [Antivert] 25 mg PO TID PRN #12 tab 07/27/24 Metoclopramide HCl [Reglan] 10 mg PO Q6HR PRN #15 tablet 07/27/24 Allergies Allergy/AdvReac Type Severity Reaction Status Date / Time amoxicillin Allergy Rash/Hives Verified 07/27/24 19:33 codeine Allergy agitated,re Verified 07/27/24 19:33 stless prochlorperazine Allergy agitated,re Verified 07/27/24 19:33 [From Compazine] stless Review of Systems ROS Statement: Those systems with pertinent positive or pertinent negative responses have been documented in the HPI. ROS Other: All systems not noted in ROS Statement are negative. Past Medical History Past Medical History: Hypertension, Osteoarthritis (OA) Additional Past Medical History / Comment(s): Diverticulitis, back problems, allergies, insomnia. History of Any Multi-Drug Resistant Organisms: None Reported Past Surgical History: Back Surgery, Section, Hysterectomy, Orthopedic Surgery, Tonsillectomy, Tubal Ligation Additional Past Surgical History / Comment(s): Bilateral carpal tunnel surgery, left breast benign biopsy X3, left knee arthroscopy. Right arthroscopic rotator cuff repair,marisa cataracts, pain procedures Past Anesthesia/Blood Transfusion Reactions: Postoperative Nausea & Vomiting (PONV) Additional Past Anesthesia/Blood Transfusion Reaction / Comment(s): "Sister slow to wake up." Past Psychological History: Depression Smoking Status: Never smoker Past Alcohol Use History: None Reported Past Drug Use History: None Reported - Past Family History Sister(s) Family Medical History: Cancer General Exam - General Exam Comments Initial Comments: PE: CONSTITUTIONAL: No apparent distress, well appearing SKIN: Warm, dry, no jaundice, hives or petechiae. 1.5 cm linear superfical laceration to dorsal aspect right hand, scratch dorsal aspect left hand, small bruises present EYES: Pupils are equally round, extraocular movements intact without nystagmus, clear conjunctiva, non-icteric sclera HENT: Normocephalic, atraumatic, moist mucus membranes, oropharynx clear without exudates NECK: , Full range of motion, normal appearance PULMONARY: Clear to auscultation without wheezes, rhonchi, or rales, normal excursion, no accessory muscle use and no stridor CARDIOVASCULAR: Regular rate, rhythm, normal S1 and S2. No appreciated murmurs, rubs or gallops. Strong radial pulses with intact distal perfusion. No lower extremity edema GASTROINTESTINAL: Soft, active bowel sounds throughout, non-tender, non- distended, no palpable masses, no rebound or guarding. No hepatosplenomegaly GENITOURINARY: MUSCULOSKELETAL: Extremities have no gross deformity, no edema, redness, or swelling. Mild tenderness of patient of the dorsal aspects of the hands bilate rally without gross deformity, swelling, patient able to move hand through full range of motion, no calf swelling NEUROLOGIC:_a/o x 3, GCS 15, normal mentation and speech. Moves all extremities x 4 without motor or sensory deficit, cranial nerves: II (visual chowdhury without defects), III, IV and (extraocular movements are intact, pupils are equal with normal reaction to light), V (intact facial sensation and jaw opening), VII (no facial droop), IX and X (normal palate movement, midline uvula, normal voice), XII (midline tongue protrusion). Motor strength is 5/5 in all extremities. No abnormal movements. Normal muscle tone. Sensation to light touch is intact bilaterally. No cerebellar signs ([id number], [id number]-[id number], and rapid alternating movements are normal), no truncal ataxia PSYCHIATRIC:_normal mood and affect, thought process is clear and linear Limitations: no limitations Course Vital Signs 07/27/24 07/27/24 07/27/24 19:32 20:03 20:09 Temperature 97.9 F 98.5 F Pulse Rate 56 L 57 L Pulse Rate [ 58 L Sitting] Pulse Rate [ 58 L Standing] Pulse Rate [ 57 L Supine] Respiratory 18 16 Rate Blood Pressure 97/52 93/57 Blood Pressure 79/43 [Left Arm Standing] Blood Pressure 83/64 [Right Arm Sitting] Blood Pressure 102/45 [Right Arm Supine] O2 Sat by Pulse 96 95 Oximetry 07/27/24 07/27/24 07/27/24 21:10 22:10 22:48 Temperature 97.8 F Pulse Rate 60 60 Pulse Rate [ 62 Sitting] Pulse Rate [ 61 Standing] Pulse Rate [ 62 Supine] Respiratory 16 18 Rate Blood Pressure 106/87 112/82 Blood Pressure 101/63 [Left Arm Standing] Blood Pressure 107/58 [Right Arm Sitting] Blood Pressure 113/62 [Right Arm Supine] O2 Sat by Pulse 98 97 Oximetry EKG Findings - EKG Comments: EKG Findings:: Sinus bradycardia, rate 58 bpm, DE interval 189 ms, QT/QTc 405/402 ms, QRS duration 90 ms, normal axis, no ST elevations or depressions, no arrhythmia Medical Decision Making - Medical Decision Making Was pt. sent in by a medical professional or institution ([facility], [employer], urgent care, hospital, or [facility]...) When possible be specific @ -No Did you speak to anyone other than the patient for history (EMS, parent, family, police, friend...)? What history was obtained from this source @ -No Did you review nursing and triage notes (agree or disagree)? Why? @ -I reviewed and agree with nursing and triage notes Were old charts reviewed (outside hosp., previous admission, EMS record, old EKG, old radiological studies, urgent care reports/EKG's, [facility] records)? Report findings @ -Medical records reviewed, patient here earlier this morning after hitting her head due to dizziness, CT brain CTA and chest x-ray showed no acute process or signs of occlusion or dissection, ultimately discharged home after symptom improvement with meclizine Differential Diagnosis (chest pain, altered mental status, abdominal pain women, abdominal pain men, vaginal bleeding, weakness, fever, dyspnea, syncope, headache, dizziness, GI bleed, back pain, seizure, CVA, palpatations, mental health, musculoskeletal)? @Differential Dizziness: Benign paroxysmal positional Vertigo, medication side effect, orthostatic hypotension, Meniere's disease, otitis media, acoustic neuroma, vertebrobasilar insufficiency, cerebellar stroke, hypovolemic, arrhythmia, coronary artery syndrome, anemia, this is not meant to be an all-inclusive list EKG interpreted by me (3pts min.). @ -As above X-rays interpreted by me (1pt min.). @ -None done CT interpreted by me (1pt min.). @ -None done U/S interpreted by me (1pt. min.). @ -None done What testing was considered but not performed or refused? (CT, X-rays, U/S, labs)? Why? Considered chest x-ray however a chest x-ray was performed earlier today and without acute process, as patient symptoms have not changed I do not feel repeat chest x-ray would be beneficial What meds were considered but not given or refused? Why? @ -None Did you discuss the management of the patient with other professionals (professionals i.e. , PA, [employer], lab, RT, psych nurse, hospital social worker, character actress, teacher, giving officer, case resource manager)? Give summary @ -No Was smoking cessation discussed for >3mins.? @ -No Was critical care preformed (if so, how long)? @ -No Were there social determinants of health that impacted care today? How? (Homelessness, low income, unemployed, alcoholism, drug addiction, trans portation, low edu. Level, literacy, decrease access to med. care, assisted, rehab)? @ -No Was there de-escalation of care discussed even if they declined (Discuss DNR or withdrawal of care, Hospice)? @ -No What co-morbidities impacted this encounter? (DM, HTN, Smoking, COPD, CAD, Cancer, CVA, ARF, Chemo, Hep., AIDS, mental health diagnosis, sleep apnea, morbid obesity)? @Hypertension Was patient admitted / discharged? Hospital course, mention meds given and route, prescriptions, significant lab abnormalities, going to OR and other pertinent info. Discharged-patient is a pleasant 73-year-old female history hypertension on multiple antihypertensives presenting today for dizziness. Patient hypotensive on arrival, BP 97/52, HR 58. Overall well appearing on my assessment. MM slightly dry. No cerebellar signs on exam. Imaging earlier today reassuring. Orthostatic vital signs positive, patient will receive 1 L IV fluids and we will recheck basic labs to ensure no significant changes from earlier today. Will give 25 mg meclizine and reassess. Labs significant for mild hyponatremia sodium of 129, otherwise overall reassuring. After 1 L IV fluids, orthostatic vital signs are now negative. Patient was able to ambulate in the ED without any dizziness. I discussed with her that this is her second admission today and we could potentially admit her for observation for maintenance fluids and to adjust her antihypertensives as needed in the morning versus discharge home for close follow-up with her primary care provider. As patient states that she is now asymptomatic and her granddaughter will be staying with her tonight she is comfortable discharge home at this point. We discussed that should she stands suddenly and again becomes symptomatic or have any further symptoms she should return to the ER immediately. She was encouraged to increase her fluid intake and sodium intake tomorrow. All questions were answered and patient was discharged in stable condition. In my medical judgment there is currently no evidence of an immediate life- threatening or surgical condition. Discharge is therefore indicated at this time. Discharge treatment instructions, follow up instructions, and appropriate emergency department return precautions were discussed with the patient and/or medical decision maker. Patient and/or medical decision maker expressed understanding of and agreed with the treatment plan, follow up instructions, and emergency department return precaution. All patient's and/or medical decision maker's questions were answered. Undiagnosed new problem with uncertain prognosis? @ -No Drug Therapy requiring intensive monitoring for toxicity (Heparin, Nitro, In sulin, Cardizem)? @ -No Were any procedures done? @ -No Diagnosis/symptom? @ -Orthostatic hypotension Acute, or Chronic, or Acute on Chronic? @ -Acute Uncomplicated (without systemic symptoms) or Complicated (systemic symptoms)? @ -Complicated Side effects of treatment? @ -No Exacerbation, Progression, or Severe Exacerbation? @ -No Poses a threat to life or bodily function? How? (Chest pain, [place], NH, pneumonia, PE, COPD, DKA, ARF, appy, cholecystitis, CVA, Diverticulitis, Homicidal, Suicidal, threat to staff... and all critical care pts) @No, not at time of discharge - Lab Data Result diagrams: 07/27/24 20:41 07/27/24 20:41 Lab Results 07/27/24 07/27/24 07/27/24 Range/Units 20:15 20:41 20:41 WBC 7.3 (3.8-10.6) k/uL RBC 4.07 (3.80-5.40) m/uL Hgb 12.7 (11.4-16.0) gm/dL Hct 37.4 (34.0-46.0) % MCV 91.8 (80.0-100.0) fL MCH 31.1 (25.0-35.0) pg MCHC 33.9 (31.0-37.0) g/dL RDW 13.0 (11.5-15.5) % Plt Count 308 (150-450) k/uL MPV 7.3 Neutrophils % 68 % Lymphocytes % 20 % Monocytes % 5 % Eosinophils % 6 % Basophils % 0 % Neutrophils # 4.9 (1.3-7.7) k/uL Lymphocytes # 1.4 (1.0-4.8) k/uL Monocytes # 0.4 (0-1.0) k/uL Eosinophils # 0.4 (0-0.7) k/uL Basophils # 0.0 (0-0.2) k/uL PT 11.5 (10.0-12.5) sec INR 1.0 (<1.2) Sodium (137-145) mmol/L Potassium (3.5-5.1) mmol/L Chloride (98-107) mmol/L Carbon Dioxide (22-30) mmol/L Anion Gap mmol/L BUN (7-17) mg/dL Creatinine (0.52-1.04) mg/dL Est GFR (CKD-EPI)AfAm (>60 ml/min/1.73 sqM) Est GFR (CKD-EPI)NonAf (>60 ml/min/1.73 sqM) Glucose (74-99) mg/dL POC Glucose (mg/dL) 106 (70-110) mg/dL POC Glu Critical Care Nurse ID MANUEL ANGELA Calcium (8.4-10.2) mg/dL Total Bilirubin (0.2-1.3) mg/dL AST (14-36) U/L ALT (4-34) U/L Alkaline Phosphatase (38-126) U/L Troponin I (0.000-0.034) ng/mL Total Protein (6.3-8.2) g/dL Albumin (3.5-5.0) g/dL 07/27/24 07/27/24 Range/Units 20:41 20:41 WBC (3.8-10.6) k/uL RBC (3.80-5.40) m/uL Hgb (11.4-16.0) gm/dL Hct (34.0-46.0) % MCV (80.0-100.0) fL MCH (25.0-35.0) pg MCHC (31.0-37.0) g/dL RDW (11.5-15.5) % Plt Count (150-450) k/uL MPV Neutrophils % % Lymphocytes % % Monocytes % % Eosinophils % % Basophils % % Neutrophils # (1.3-7.7) k/uL Lymphocytes # (1.0-4.8) k/uL Monocytes # (0-1.0) k/uL Eosinophils # (0-0.7) k/uL Basophils # (0-0.2) k/uL PT (10.0-12.5) sec INR (<1.2) Sodium 129 L (137-145) mmol/L Potassium 4.3 (3.5-5.1) mmol/L Chloride 100 (98-107) mmol/L Carbon Dioxide 26 (22-30) mmol/L Anion Gap 3 mmol/L BUN 16 (7-17) mg/dL Creatinine 0.94 (0.52-1.04) mg/dL Est GFR (CKD-EPI)AfAm 69 (>60 ml/min/1.73 sqM) Est GFR (CKD-EPI)NonAf 60 (>60 ml/min/1.73 sqM) Glucose 107 H (74-99) mg/dL POC Glucose (mg/dL) (70-110) mg/dL POC Glu Critical Care Nurse ID Calcium 9.6 (8.4-10.2) mg/dL Total Bilirubin 0.4 (0.2-1.3) mg/dL AST 36 (14-36) U/L ALT 25 (4-34) U/L Alkaline Phosphatase 59 (38-126) U/L Troponin I <0.012 (0.000-0.034) ng/mL Total Protein 6.6 (6.3-8.2) g/dL Albumin 4.0 (3.5-5.0) g/dL Disposition Clinical Impression: Orthostatic hypotension, Hyponatremia Disposition: HOME SELF-CARE Condition: Good Instructions (If sedation given, give patient instructions): Dizziness (ED) Additional Instructions: Every disease is a spectrum and a small chance still exists that a serious condition could develop, for this reason, please monitor yourself closely for new, changing or worsening symptoms, should you have any return of your dizziness, vomiting, unable to keep down fluids, chest pain or shortness of breath, feeling like you are going to pass out, fever, inability to tolerate/keep down fluids or your medications, inability to follow up with ou tpatient providers as instructed and should you experience these symptoms or should you have any further concerns for your wellbeing please return to the ED or call 911 immediately. Please hold tonight's blood pressure medications. Should you stand up or begin walking and feel like you are to pass out please sit down immediately and call 911 or return to the ED. Call your PCP first thing in the morning regarding today's visit and following up. Please drink plenty of fluids and increase your salt intake tomorrow. PLEASE call your primary care physician as soon as possible to arrange / discuss plan for followup appointment. Appointment in the next 1-3 days is strongly encouraged if possible. PLEASE let us know here before you leave if there is anything further we can do to be of any assistance. Take care and feel Better! Is patient prescribed a controlled substance at d/c from ED?: No Referrals: Thomas Toussaint, [Primary Care Provider] - 1-2 days
[2024-07-27 20:49] LABS: HCT 37.4 % (34.0-46.0); HGB 12.7 gm/dL (11.4-16.0); MCV 91.8 fL (80.0-100.0); RBC 4.07 m/uL (3.80-5.40); WBC 7.3 k/uL (3.8-10.6)
[2024-07-27 20:50] LABS: Basophils % (A) 0 %; Eosinophils # (A) 0.4 k/uL (0-0.7); Eosinophils % (A) 6 %; Lymphocytes # (A) 1.4 k/uL (1.0-4.8); Lymphocytes % (A) 20 %; MCH 31.1 pg (25.0-35.0); MCHC 33.9 g/dL (31.0-37.0); Mean Platelet Volume 7.3; Monocytes # (A) 0.4 k/uL (0-1.0); Monocytes % (A) 5 %; Neutrophils # (A) 4.9 k/uL (1.3-7.7); Neutrophils % (A) 68 %; Platelet Count 308 k/uL (150-450)
[2024-07-27 20:54] LABS: ALT 25 U/L (4-34); AST 36 U/L (14-36); African American GFR (CKD) 69 (>60 ml/min/1.73 sqM); Alkaline Phosphatase 59 U/L (38-126); Anion Gap 3 mmol/L; Blood Urea Nitrogen 16 mg/dL (7-17); Calcium 9.6 mg/dL (8.4-10.2); Carbon Dioxide 26 mmol/L (22-30); Chloride 100 mmol/L (98-107); Glucose 107 mg/dL (74-99); Non-African American GFR(CKD) 60 (>60 ml/min/1.73 sqM); Potassium 4.3 mmol/L (3.5-5.1); Sodium 129 mmol/L (137-145); Total Bilirubin 0.4 mg/dL (0.2-1.3); Total Protein 6.6 g/dL (6.3-8.2)
[2024-07-27] MEDS: MECLIZINE 12.5 MG TAB PO STA (21:11)
[2024-07-27] MEDS: SODIUM CHLORIDE 0.9% 1,000 ML IV STA (21:11)
[2024-07-27 21:12] LABS: Prothrombin Time 11.5 sec (10.0-12.5)
[2024-07-27 22:50] VITALS: RESP 18; TEMP 97.8
[2024-07-27 22:59] VITALS: BP 113/62; PULSE 62
== END 2024-07-27 22:43 | disposition home or self-care (01) ==
LOC: EC 19:29
DX: I95.1 Orthostatic hypotension (principal); E87.1 Hypo-osmolality and hyponatremia; Z88.5 Allergy status to narcotic agent; Z88.8 Allergy status to other drugs, medicaments and biological substances; Z88.0 Allergy status to penicillin; Z79.899 Other long term (current) drug therapy
CPT/HCPCS: 36415; 80053; 84484; 85025; 85610; 93005; 96360; 99284

== ENCOUNTER 2024-07-28 13:33 | Observation (INO) | payer MEDICARE, OTHER ==
--- NOTE | 2024-07-28 14:26 | ED ---
Dizziness HPI - General Source: patient, RN notes reviewed, old records reviewed Mode of arrival: wheelchair Limitations: no limitations <Corrie Sanderson - Last Filed: 07/28/24 14:25> <Pushpa Jordan - Last Filed: 08/01/24 23:25> - General Chief Complaint: Dizziness Stated Complaint: Hypotension Time Seen by Provider: 07/28/24 14:25 - History of Present Illness Initial Comments: Quick note: 73-year-old female presented to the ER for evaluation of dizziness and hypotension. Patient was seen here yesterday for similar complaint and had workup obtained. Patient discharged with meclizine. She states she took m eclizine today and her symptoms have since resolved. She is reporting low blood pressures at home of 100s systolic. No chest pain or shortness of breath. (Corrie Sanderson) Patient is a pleasant 73-year-old female past medical hx hypertension presenting today for hypotension and dizziness. Patient was here yesterday morning after dizziness caused fall, ultimately discharged home after reassuring imaging and labs. Here last night for hypotension dizziness, ultimately discharged after orthostatic hypotension resolved with IV fluids and patient's symptoms resolved. Patient did not take any of her blood pressure medications this morning and measured her blood pressure which was 107 systolic. Patient's granddaughter sent her to the emergency department for further evaluation. Patient did feel slightly dizzy this morning but took an Antivert which improved her symptoms. The patient denies any falls this morning though states that last night she did fall upon returning home against back of her dresser hurting her upper back. Patient's niece accompanies her and states the patient did fall this morning per patient's granddaughter. States that it is not normal for the patient to be amnestic to something like this, the patient denies falling this morning. The patient herself currently denies any complaints and is eager to return home to take care of her (Pushpa Jordan) - Related Data Home Medications Medication Instructions Recorded Confirmed Ipratropium [place] [Ipratropium 2 sprays PO DAILY PRN 07/12/17 07/28/24 [place] 0.03%] Multivitamins, Thera [Multivitamin 1 tab PO DAILY 07/12/17 07/28/24 (formulary)] amLODIPine BESYLATE [Norvasc] 5 mg PO HS 07/12/17 07/28/24 estradioL [Estrace] 1 mg PO DAILY 07/12/17 07/28/24 lisinopriL [Zestril] 20 mg PO DAILY 07/12/17 07/28/24 Melatonin [Melatonin Tr] 10 mg PO HS 11/25/21 07/28/24 Calcium Carbonate/Vitamin D3 1 cap PO DAILY 07/13/23 07/28/24 [Calcium 600 mg-D3 10 Mcg (400 Iu)] Eszopiclone [Lunesta] 2 mg PO HS 07/13/23 07/28/24 L.acidoph,Paracasei, B.lactis 1 cap PO DAILY 07/13/23 07/28/24 [Probiotic] Magnesium Oxide [Mag-Ox] 400 mg PO BID 11/26/23 07/28/24 Ibuprofen 800 mg PO TID PRN 12/10/23 07/28/24 Aspirin [[place] Aspirin EC] 81 mg PO DAILY 07/27/24 07/28/24 Ferrous Sulfate [Iron (65 MG 325 mg PO DAILY 07/27/24 07/28/24 Elemental)] Mv-Min/FA/Vit K/Lutein/Zeaxant 1 cap PO BID 07/27/24 07/28/24 [Preservision Areds 2 Plus Mv] Naproxen Sodium [Aleve] 220 mg PO BID PRN 07/27/24 07/28/24 Nortriptyline [Pamelor] 50 mg PO HS 07/27/24 07/28/24 Vitamin B Complex 1 cap PO DAILY 07/27/24 07/28/24 Previous Rx's Medication Instructions Recorded Meclizine [Antivert] 25 mg PO TID PRN #12 tab 07/27/24 Metoclopramide HCl [Reglan] 10 mg PO Q6HR PRN #15 tablet 07/27/24 Acetaminophen Tab [Tylenol] 650 mg PO Q6HR PRN tab 07/31/24 Fludrocortisone [Florinef] 0.2 mg PO DAILY #60 tab 07/31/24 Gabapentin [Neurontin] 300 mg PO TID PRN cap 07/31/24 Mag Hydrox/Al Hydrox/Simeth 15 ml PO Q6HR PRN ml 07/31/24 [Maalox] Allergies Allergy/AdvReac Type Severity Reaction Status Date / Time amoxicillin Allergy Rash/Hives Verified 07/28/24 16:46 codeine Allergy agitated,re Verified 07/28/24 16:46 stless prochlorperazine Allergy agitated,re Verified 07/28/24 16:46 [From Compazine] stless Review of Systems ROS Other: All systems not noted in ROS Statement are negative. <Corrie Sanderson - Last Filed: 07/28/24 14:25> ROS Other: All systems not noted in ROS Statement are negative. Constitutional: Denies: fever, chills Eyes: Denies: vision change Respiratory: Denies: cough, dyspnea Cardiovascular: Denies: chest pain Gastrointestinal: Denies: abdominal pain, nausea, vomiting Genitourinary: Denies: dysuria Musculoskeletal: Reports: back pain (upper left and right sided back pain) Neurological: Reports: other (dizziness). Denies: headache, numbness, paresthesias <Pushpa Jordan - Last Filed: 08/01/24 23:25> ROS Statement: Those systems with pertinent positive or pertinent negative responses have been documented in the HPI. Past Medical History Past Medical History: Hypertension, Osteoarthritis (OA) Additional Past Medical History / Comment(s): Diverticulitis, back problems, allergies, insomnia. History of Any Multi-Drug Resistant Organisms: None Reported Past Surgical History: Back Surgery, Section, Hysterectomy, Orthopedic Surgery, Tonsillectomy, Tubal Ligation Additional Past Surgical History / Comment(s): Bilateral carpal tunnel surgery, left breast benign biopsy X3, left knee arthroscopy. Right arthroscopic rotator cuff repair,marisa cataracts, pain procedures Past Anesthesia/Blood Transfusion Reactions: Postoperative Nausea & Vomiting (PONV) Additional Past Anesthesia/Blood Transfusion Reaction / Comment(s): "Sister slow to wake up." Past Psychological History: Depression Smoking Status: Never smoker Past Alcohol Use History: None Reported Past Drug Use History: None Reported - Past Family History Sister(s) Family Medical History: Cancer <Corrie Sanderson - Last Filed: 07/28/24 14:25> General Exam Limitations: no limitations <Corrie Sanderson - Last Filed: 07/28/24 14:25> <Pushpa Jordan - Last Filed: 08/01/24 23:25> - General Exam Comments Initial Comments: Visual Physical Exam Vital signs reviewed General: Well-appearing, nontoxic, no acute distress. Head: Normocephalic, atraumatic Eyes: PERRLA, EOMI ENT: Airway patent Chest: Nonlabored breathing Skin: No visual rash, normal skin tone Neuro: Alert and oriented 3 Musculoskeletal: No gross abnormalities (Corrie Sanderson) PE: CONSTITUTIONAL: No apparent distress, well appearing SKIN: Warm, dry, no jaundice, hives or petechiae. Small superficial abrasion to the right forehead, no hematoma or palpable hematoma, some abrasions to the dorsal aspects of the hands bilaterally, abrasion to the right posterior ribs, hematoma to the left posterior ribs EYES: Pupils are equally round, extraocular movements intact without nystagmus, clear conjunctiva, non-icteric sclera HENT: Normocephalic, atraumatic, moist mucus membranes, oropharynx clear without exudates NECK: , Full range of motion, normal appearance, no midline spinal tenderness PULMONARY: Clear to auscultation without wheezes, rhonchi, or rales, normal excursion, no accessory muscle use and no stridor. Tenderness palpation of the right and left posterior lower ribs CARDIOVASCULAR: Regular rate, rhythm, normal S1 and S2. No appreciated murmurs, rubs or gallops. Strong radial pulses with intact distal perfusion. No lower extremity edema GASTROINTESTINAL: Soft, active bowel sounds throughout, non-tender, non- distended, no palpable masses, no rebound or guarding. No hepatosplenomegaly GENITOURINARY: MUSCULOSKELETAL: Extremities have no gross deformity, no edema, redness, or swelling. No calf swelling NEUROLOGIC:_a/o x 3, GCS 15, normal mentation and speech. Moves all extremities x 4 without motor or sensory deficit, normal [id number] testing, normal [id number] testing and normal rapid alternating movements normal gait PSYCHIATRIC:_normal mood and affect, thought process is clear and linear (Pushpa Jordan) Course Vital Signs 07/28/24 07/28/24 07/28/24 13:41 15:23 19:50 Temperature 98.7 F Pulse Rate 69 79 Pulse Rate [ 70 Sitting] Pulse Rate [ 64 Standing] Pulse Rate [ 69 Supine] Respiratory 18 16 12 Rate Blood Pressure 120/71 107/61 Blood Pressure 129/65 [Sitting] Blood Pressure 106/68 [Standing] Blood Pressure 135/64 [Supine] O2 Sat by Pulse 99 97 94 L Oximetry 07/28/24 07/28/24 07/29/24 21:49 23:04 01:47 Temperature Pulse Rate 70 Pulse Rate [ 72 Sitting] Pulse Rate [ Standing] Pulse Rate [ 68 Supine] Respiratory 16 18 12 Rate Blood Pressure 124/72 Blood Pressure 134/79 [Sitting] Blood Pressure [Standing] Blood Pressure 114/62 [Supine] O2 Sat by Pulse 95 96 94 L Oximetry 07/29/24 07/29/24 07/29/24 06:29 07:00 10:30 Temperature 98.0 F Pulse Rate Pulse Rate [ 72 Sitting] Pulse Rate [ 70 Standing] Pulse Rate [ 69 Supine] Respiratory 16 18 16 Rate Blood Pressure Blood Pressure [Sitting] Blood Pressure 123/67 130/67 [Standing] Blood Pressure 120/73 [Supine] O2 Sat by Pulse 99 97 96 Oximetry Medical Decision Making <Corrie Sanderson - Last Filed: 07/28/24 14:25> - Lab Data Result diagrams: 07/31/24 05:36 07/31/24 05:36 <Pushpa Jordan - Last Filed: 08/01/24 23:25> - Medical Decision Making I performed the quick note portion of this chart. Electronically signed by Corrie Sanderson PA-C (Corrie Sanderson) Was pt. sent in by a medical professional or institution ([facility], [employer], urgent care, hospital, or [facility]...) When possible be specific @ -No Did you speak to anyone other than the patient for history (EMS, parent, family, police, friend...)? What history was obtained from this source @ -I spoke with patient's niece who states that patient seems somewhat more confused than normal stating it is not normal for the patient do not remember having a fall this morning Did you review nursing and triage notes (agree or disagree)? Why? @ -I reviewed and agree with nursing and triage notes Were old charts reviewed (outside hosp., previous admission, EMS record, old EKG, old radiological studies, urgent care reports/EKG's, [facility] records)? Report findings @ -Medical records reviewed, patient here with rate yesterday after fall, CT brain and CT angiogram of the head and neck were negative for acute process, occlusion or dissection Differential Diagnosis (chest pain, altered mental status, abdominal pain women, abdominal pain men, vaginal bleeding, weakness, fever, dyspnea, syncope, headache, dizziness, GI bleed, back pain, seizure, CVA, palpatations, mental health, musculoskeletal)? @Differential Dizziness: Benign paroxysmal positional Vertigo, Meniere's disease, otitis media, acoustic neuroma, vertebrobasilar insufficiency, hypovolemic, arrhythmia, med. side ef fect, peripheral neuropathy, anemia, this is not meant to be an all-inclusive list EKG interpreted by me (3pts min.). Sinus rhythm, rate 60s beats minute, CT interval 180 ms QRS duration 90 ms QT/QT c 387/4 1 ms, normal axis, compared to EKG performed yesterday, no significant change from prior, no new ST elevations or depressions no STEMI X-rays interpreted by me (1pt min.). No evidence of rib fractures or pneumothorax on ribs XR CT interpreted by me (1pt min.). @No signs of hemorrhage or skull fracture on CT brain U/S interpreted by me (1pt. min.). @ -None done What testing was considered but not performed or refused? (CT, X-rays, U/S, labs)? Why? @ -None What meds were considered but not given or refused? Why? @ -None Did you discuss the management of the patient with other professionals (professionals i.e. , PA, [employer], lab, RT, psych nurse, social service worker, billing auditor, teacher, tactical debriefer officer, machine adjuster leader case trim)? Give summary @ -No Was smoking cessation discussed for >3mins.? @ -No Was critical care preformed (if so, how long)? @ -No Were there social determinants of health that impacted care today? How? (Homelessness, low income, unemployed, alcoholism, drug addiction, transportation, low edu. Level, literacy, decrease access to med. care, halfway, rehab)? @ -No Was there de-escalation of care discussed even if they declined (Discuss DNR or withdrawal of care, Hospice)? @ -No What co-morbidities impacted this encounter? (DM, HTN, Smoking, COPD, CAD, Cancer, CVA, ARF, Chemo, Hep., AIDS, mental health diagnosis, sleep apnea, morbid obesity)? Hypertension Was patient admitted / discharged? Hospital course, mention meds given and route, prescriptions, significant lab abnormalities, going to OR and other pertinent info. @ Admission- patient is a pleasant 73-year-old female presenting today for low blood pressure and dizziness. Patient currently asymptomatic, orthostats were positive on arrival without intervention. I did see this patient last night and we discussed admission at that point however patient was asymptomatic and preferred discharge home. I discussed with patient that with this being her third visit and having another fall since discharge, I feel she should be admitted for observation, PT/OT, rehydration, potentially adjust medications and ensure she has no further falls. I am repeating a CT brain and C-spine given patient's fall yesterday and is now new amnesia. Pt agreeable with POC. Labs and imaging reviewed. Sodium 129 otherwise grossly within normal limits. Abnormal values not concerning for acute pathology related to presenting complaint. Case discussed with Dr. Grande, accepts patient for admission. Undiagnosed new problem with uncertain prognosis? @ -No Drug Therapy requiring intensive monitoring for toxicity (Heparin, Nitro, Insulin, Cardizem)? @ -No Were any procedures done? @ -No Diagnosis/symptom? @Dizziness, orthostatic hypotension, multiple falls Acute, or Chronic, or Acute on Chronic? @Acute Uncomplicated (without systemic symptoms) or Complicated (systemic symptoms)? @Complicated Side effects of treatment? @ -No Exacerbation, Progression, or Severe Exacerbation? @ -No Poses a threat to life or bodily function? How? (Chest pain, [place], CO, pneumonia, PE, COPD, DKA, ARF, appy, cholecystitis, CVA, Diverticulitis, Homicidal, S uicidal, threat to staff... and all critical care pts) @Potentially, patient's dizziness and orthostatic hypotension have been causing her to fall, could ultimately result in a fall that is that causes left threatening injury (Pushpa Jordan) - Lab Data Lab Results 07/28/24 07/28/24 07/28/24 Range/Units 14:51 14:51 15:05 WBC 7.8 (3.8-10.6) k/uL RBC 4.17 (3.80-5.40) m/uL Hgb 12.9 (11.4-16.0) gm/dL Hct 37.9 (34.0-46.0) % MCV 91.0 (80.0-100.0) fL MCH 31.0 (25.0-35.0) pg MCHC 34.1 (31.0-37.0) g/dL RDW 12.9 (11.5-15.5) % Plt Count 336 (150-450) k/uL MPV 7.5 Neutrophils % 72 % Lymphocytes % 16 % Monocytes % 5 % Eosinophils % 5 % Basophils % 1 % Neutrophils # 5.6 (1.3-7.7) k/uL Lymphocytes # 1.3 (1.0-4.8) k/uL Monocytes # 0.4 (0-1.0) k/uL Eosinophils # 0.4 (0-0.7) k/uL Basophils # 0.0 (0-0.2) k/uL PT (10.0-12.5) sec INR (<1.2) APTT (22.0-30.0) sec Sodium 129 L (137-145) mmol/L Potassium 5.0 (3.5-5.1) mmol/L Chloride 99 (98-107) mmol/L Carbon Dioxide 24 (22-30) mmol/L Anion Gap 6 mmol/L BUN 13 (7-17) mg/dL Creatinine 0.75 (0.52-1.04) mg/dL Est GFR (CKD-EPI)AfAm >90 (>60 ml/min/1.73 sqM) Est GFR (CKD-EPI)NonAf 79 (>60 ml/min/1.73 sqM) Glucose 90 (74-99) mg/dL Osmolality 271 L (275-295) mOsm/kg Calcium 10.0 (8.4-10.2) mg/dL Magnesium 1.8 (1.6-2.3) mg/dL Total Bilirubin 0.8 (0.2-1.3) mg/dL AST 45 H (14-36) U/L ALT 28 (4-34) U/L Alkaline Phosphatase 63 (38-126) U/L Troponin I (0.000-0.034) ng/mL Total Protein 7.4 (6.3-8.2) g/dL Albumin 4.6 (3.5-5.0) g/dL Vitamin B12 (200.0-944.0) pg/mL Folate (4.40-31.00) ng/mL TSH (0.465-4.680) mIU/L Cortisol (3.1-22.4) UG/DL Urine Color Urine Appearance (Clear) Urine pH (5.0-8.0) Ur Specific [place] (1.001-1.035) Urine Protein (Negative) Urine Glucose (UA) (Negative) Urine Ketones (Negative) Urine Blood (Negative) Urine Nitrite (Negative) Urine Bilirubin (Negative) Urine Urobilinogen (<2.0) mg/dL Ur Leukocyte Esterase (Negative) Urine Osmolality (400-1100) mOsm/kg 07/28/24 07/28/24 07/28/24 Range/Units 15:29 15:29 15:29 WBC (3.8-10.6) k/uL RBC (3.80-5.40) m/uL Hgb (11.4-16.0) gm/dL Hct (34.0-46.0) % MCV (80.0-100.0) fL MCH (25.0-35.0) pg MCHC (31.0-37.0) g/dL RDW (11.5-15.5) % Plt Count (150-450) k/uL MPV Neutrophils % % Lymphocytes % % Monocytes % % Eosinophils % % Basophils % % Neutrophils # (1.3-7.7) k/uL Lymphocytes # (1.0-4.8) k/uL Monocytes # (0-1.0) k/uL Eosinophils # (0-0.7) k/uL Basophils # (0-0.2) k/uL PT (10.0-12.5) sec INR (<1.2) APTT (22.0-30.0) sec Sodium (137-145) mmol/L Potassium (3.5-5.1) mmol/L Chloride (98-107) mmol/L Carbon Dioxide (22-30) mmol/L Anion Gap mmol/L BUN (7-17) mg/dL Creatinine (0.52-1.04) mg/dL Est GFR (CKD-EPI)AfAm (>60 ml/min/1.73 sqM) Est GFR (CKD-EPI)NonAf (>60 ml/min/1.73 sqM) Glucose (74-99) mg/dL Osmolality (275-295) mOsm/kg Calcium (8.4-10.2) mg/dL Magnesium (1.6-2.3) mg/dL Total Bilirubin (0.2-1.3) mg/dL AST (14-36) U/L ALT (4-34) U/L Alkaline Phosphatase (38-126) U/L Troponin I <0.012 (0.000-0.034) ng/mL Total Protein (6.3-8.2) g/dL Albumin (3.5-5.0) g/dL Vitamin B12 (200.0-944.0) pg/mL Folate (4.40-31.00) ng/mL TSH (0.465-4.680) mIU/L Cortisol (3.1-22.4) UG/DL Urine Color Colorless Urine Appearance Clear (Clear) Urine pH 7.0 (5.0-8.0) Ur Specific [place] 1.010 (1.001-1.035) Urine Protein Negative (Negative) Urine Glucose (UA) Negative (Negative) Urine Ketones Negative (Negative) Urine Blood Negative (Negative) Urine Nitrite Negative (Negative) Urine Bilirubin Negative (Negative) Urine Urobilinogen <2.0 (<2.0) mg/dL Ur Leukocyte Esterase Negative (Negative) Urine Osmolality 224 L (400-1100) mOsm/kg 07/28/24 07/28/24 07/28/24 Range/Units 15:48 15:48 15:48 WBC (3.8-10.6) k/uL RBC (3.80-5.40) m/uL Hgb (11.4-16.0) gm/dL Hct (34.0-46.0) % MCV (80.0-100.0) fL MCH (25.0-35.0) pg MCHC (31.0-37.0) g/dL RDW (11.5-15.5) % Plt Count (150-450) k/uL MPV Neutrophils % % Lymphocytes % % Monocytes % % Eosinophils % % Basophils % % Neutrophils # (1.3-7.7) k/uL Lymphocytes # (1.0-4.8) k/uL Monocytes # (0-1.0) k/uL Eosinophils # (0-0.7) k/uL Basophils # (0-0.2) k/uL PT 11.7 (10.0-12.5) sec INR 1.1 (<1.2) APTT 22.5 (22.0-30.0) sec Sodium (137-145) mmol/L Potassium (3.5-5.1) mmol/L Chloride (98-107) mmol/L Carbon Dioxide (22-30) mmol/L Anion Gap mmol/L BUN (7-17) mg/dL Creatinine (0.52-1.04) mg/dL Est GFR (CKD-EPI)AfAm (>60 ml/min/1.73 sqM) Est GFR (CKD-EPI)NonAf (>60 ml/min/1.73 sqM) Glucose (74-99) mg/dL Osmolality (275-295) mOsm/kg Calcium (8.4-10.2) mg/dL Magnesium (1.6-2.3) mg/dL Total Bilirubin (0.2-1.3) mg/dL AST (14-36) U/L ALT (4-34) U/L Alkaline Phosphatase (38-126) U/L Troponin I (0.000-0.034) ng/mL Total Protein (6.3-8.2) g/dL Albumin (3.5-5.0) g/dL Vitamin B12 2452.0 H (200.0-944.0) pg/mL Folate (4.40-31.00) ng/mL TSH 1.070 (0.465-4.680) mIU/L Cortisol 13.9 (3.1-22.4) UG/DL Urine Color Urine Appearance (Clear) Urine pH (5.0-8.0) Ur Specific [place] (1.001-1.035) Urine Protein (Negative) Urine Glucose (UA) (Negative) Urine Ketones (Negative) Urine Blood (Negative) Urine Nitrite (Negative) Urine Bilirubin (Negative) Urine Urobilinogen (<2.0) mg/dL Ur Leukocyte Esterase (Negative) Urine Osmolality (400-1100) mOsm/kg 07/28/24 Range/Units 15:48 WBC (3.8-10.6) k/uL RBC (3.80-5.40) m/uL Hgb (11.4-16.0) gm/dL Hct (34.0-46.0) % MCV (80.0-100.0) fL MCH (25.0-35.0) pg MCHC (31.0-37.0) g/dL RDW (11.5-15.5) % Plt Count (150-450) k/uL MPV Neutrophils % % Lymphocytes % % Monocytes % % Eosinophils % % Basophils % % Neutrophils # (1.3-7.7) k/uL Lymphocytes # (1.0-4.8) k/uL Monocytes # (0-1.0) k/uL Eosinophils # (0-0.7) k/uL Basophils # (0-0.2) k/uL PT (10.0-12.5) sec INR (<1.2) APTT (22.0-30.0) sec Sodium (137-145) mmol/L Potassium (3.5-5.1) mmol/L Chloride (98-107) mmol/L Carbon Dioxide (22-30) mmol/L Anion Gap mmol/L BUN (7-17) mg/dL Creatinine (0.52-1.04) mg/dL Est GFR (CKD-EPI)AfAm (>60 ml/min/1.73 sqM) Est GFR (CKD-EPI)NonAf (>60 ml/min/1.73 sqM) Glucose (74-99) mg/dL Osmolality (275-295) mOsm/kg Calcium (8.4-10.2) mg/dL Magnesium (1.6-2.3) mg/dL Total Bilirubin (0.2-1.3) mg/dL AST (14-36) U/L ALT (4-34) U/L Alkaline Phosphatase (38-126) U/L Troponin I (0.000-0.034) ng/mL Total Protein (6.3-8.2) g/dL Albumin (3.5-5.0) g/dL Vitamin B12 (200.0-944.0) pg/mL Folate 34.80 H (4.40-31.00) ng/mL TSH (0.465-4.680) mIU/L Cortisol (3.1-22.4) UG/DL Urine Color Urine Appearance (Clear) Urine pH (5.0-8.0) Ur Specific [place] (1.001-1.035) Urine Protein (Negative) Urine Glucose (UA) (Negative) Urine Ketones (Negative) Urine Blood (Negative) Urine Nitrite (Negative) Urine Bilirubin (Negative) Urine Urobilinogen (<2.0) mg/dL Ur Leukocyte Esterase (Negative) Urine Osmolality (400-1100) mOsm/kg Disposition <Corrie Sanderson - Last Filed: 07/28/24 14:25> <Pushpa Jordan - Last Filed: 08/01/24 23:25> Clinical Impression: Dizziness, Multiple falls, Orthostatic hypotension Disposition: ADMITTED IP TO THIS HOSP Condition: Good
[2024-07-28 15:16] LABS: Basophils % (A) 1 %; Eosinophils # (A) 0.4 k/uL (0-0.7); Eosinophils % (A) 5 %; HCT 37.9 % (34.0-46.0); HGB 12.9 gm/dL (11.4-16.0); Lymphocytes # (A) 1.3 k/uL (1.0-4.8); Lymphocytes % (A) 16 %; MCHC 34.1 g/dL (31.0-37.0); Mean Platelet Volume 7.5; Monocytes # (A) 0.4 k/uL (0-1.0); Monocytes % (A) 5 %; Neutrophils # (A) 5.6 k/uL (1.3-7.7); Neutrophils % (A) 72 %; Platelet Count 336 k/uL (150-450); RBC 4.17 m/uL (3.80-5.40); RDW 12.9 % (11.5-15.5); WBC 7.8 k/uL (3.8-10.6)
[2024-07-28 15:27] LABS: ALT 28 U/L (4-34); African American GFR (CKD) >90 (>60 ml/min/1.73 sqM); Albumin 4.6 g/dL (3.5-5.0); Anion Gap 6 mmol/L; Blood Urea Nitrogen 13 mg/dL (7-17); Carbon Dioxide 24 mmol/L (22-30); Chloride 99 mmol/L (98-107); Glucose 90 mg/dL (74-99); Non-African American GFR(CKD) 79 (>60 ml/min/1.73 sqM); Sodium 129 mmol/L (137-145); Total Bilirubin 0.8 mg/dL (0.2-1.3); Total Protein 7.4 g/dL (6.3-8.2)
[2024-07-28 15:30] LABS: Magnesium 1.8 mg/dL (1.6-2.3)
[2024-07-28 15:31] LABS: AST 45 U/L (14-36); Alkaline Phosphatase 63 U/L (38-126)
[2024-07-28] MEDS: SODIUM CHLORIDE 0.9% 1,000 ML IV STA (15:55)
[2024-07-28 16:05] LABS: Appearance,Urine Clear (Clear); Bilirubin,Urine Negative (Negative); Blood,Urine Negative (Negative); Color,Urine Colorless; Glucose,Urine (UA) Negative (Negative); Ketones,Urine Negative (Negative); Leukocyte Esterase,Urine Negative (Negative); Nitrite,Urine Negative (Negative); Protein,Urine Negative (Negative); Urobilinogen,Urine <2.0 mg/dL (<2.0)
--- NOTE | 2024-07-28 16:27 | XR ---
EXAMINATION TYPE: XR ribs bilat w pa chest xray DATE OF EXAM: 07/28/2024 4:17 PM COMPARISON: 07/27/2024 CLINICAL INDICATION: Female, 73 years old with history of fall, hematoma to post right and left ribs; [facility] TECHNIQUE: XR ribs bilat w pa chest xray; Frontal and oblique views of the ribs with frontal chest ra diograph. FINDINGS: Limited evaluation due to overlapping soft tissue structures and chondrocalcinosis. There a re degenerative demonstrate displaced fracture. There is right shoulder arthroplasty changes. Multile rashawn degeneration changes spine. Visualization of the lungs are without acute process. IMPRESSION: Limited evaluation due to patient body habitus and overlying soft tissues. No displaced rib fracture definitely visualized. [facility], , 07/28/2024 4:24 PM
[2024-07-28 16:39] LABS: INR 1.1 (<1.2); Partial Thromboplastin Time 22.5 sec (22.0-30.0); Prothrombin Time 11.7 sec (10.0-12.5)
--- NOTE | 2024-07-28 17:04 | CT ---
EXAMINATION TYPE: CT brain cspine wo con DATE OF EXAM: 07/28/2024 4:48 PM COMPARISON: Previous CT study dated 07/27/2024. CLINICAL INDICATION: Female, 73 years old with history of fall yest again today, amnesia; multiple fa lls, syncope TECHNIQUE: Brain: Multiple axial CT images of the brain were obtained without IV contrast. Cspine: Axial CT images from the skull base to the inferior aspect of T2 we obtained without intraven ous contrast. Coronal and sagittal reformatted images were also reviewed. . CT DLP: 1255 mGycm, Automated exposure control for dose reduction was used. FINDINGS: Brain: Extra-axial spaces: No abnormal extra-axial fluid collections. Ventricular system: Dilatation in proportion to cerebral atrophy. Cerebral parenchyma: No acute intraparenchymal hemorrhage or mass effect. The gomes-white junction is well differentiated. Scattered hypoattenuating areas are seen within the white matter. Cerebellum: Unremarkable. Mass effect: No evidence of midline shift. Intracranial vasculature: unremarkable Soft tissues: Normal. Calvarium/osseous structures: No depressed skull fracture. Paranasal sinuses and mastoid air cells: Clear. Visualized orbits: Bilateral aphakia Cervical spine: Fracture: None. Osseous structures: Multilevel intervertebral disc space loss and anterior ossified formation. Vertebral alignment: Reversal of the normal cervical spine lordotic curvature. Minimal anterolisthesi s of C3 on C4. Spinal canal/Neural Foramina: Multilevel facet arthropathy/uncal vertebral hypertrophy in combination with posterior disc osteophyte complex these cause varying degrees of neural foraminal and spinal ca nal narrowing. Neck soft tissues: Prevertebral soft tissues are within normal limits. Other: The airway is patent. The lung apices are clear. IMPRESSION: 1. No acute intracranial process. 2. No acute fracture or traumatic subluxation of the cervical spine. [facility], , 07/28/2024 4:56 PM
[2024-07-28] MEDS ORDERED: NALOXONE 0.4 MG/ML 1 ML VIAL IV PRN (17:34)
[2024-07-28] MEDS ORDERED: ONDANSETRON 4 MG/2 ML VIAL IVP PRN (17:47)
[2024-07-28] MEDS ORDERED: MAG HYDROX/AL HYDROX/SIMETH 30 ML CUP PO PRN (17:47)
[2024-07-28] MEDS ORDERED: CALCIUM CARBONATE 500 MG CHEWABLE PO PRN (17:47)
[2024-07-28] MEDS: SODIUM CHLORIDE 0.9% 1,000 ML IV SCH (18:06)
[2024-07-28] MEDS: HYDROcodone/APAP 7.5-325MG 1 EACH TAB PO STA (18:16)
[2024-07-28] MEDS: FAMOTIDINE 20 MG TAB PO SCH (20:14)
[2024-07-28] MEDS ORDERED: MECLIZINE 25 MG TAB PO PRN (21:23)
[2024-07-28] MEDS ORDERED: IPRATROPIUM BROMIDE 0.06% NASAL SPRAY (15 ML) EA NOSTRIL PRN (21:23)
[2024-07-28] MEDS ORDERED: METOCLOPRAMIDE 10 MG TAB PO PRN (21:23)
[2024-07-28] MEDS: TEMAZEPAM 15 MG CAP PO SCH (21:48)
[2024-07-28] MEDS: GABAPENTIN 300 MG CAP PO SCH (21:50)
[2024-07-28] MEDS: MELATONIN 5 MG TABLET PO SCH (21:50)
[2024-07-28] MEDS: amLODIPine 5 MG TAB PO SCH (23:11)
[2024-07-29] MEDS: ASPIRIN 81 MG PO SCH (08:46)
[2024-07-29] MEDS: lisinopriL 20 MG TAB PO SCH (08:46)
[2024-07-29] MEDS: LACTOBACILLUS ACIDOPHILUS/PECT 1 EACH CAPSULE PO SCH (08:46)
[2024-07-29] MEDS: IBUPROFEN 800 MG TAB PO PRN (08:46)
[2024-07-29] MEDS: MULTIVITAMINS, THERA 1 EACH TAB PO SCH (08:46)
[2024-07-29] MEDS: MAGNESIUM OXIDE 400 MG TAB PO SCH (08:47)
[2024-07-29] MEDS: CALCIUM CARB-VIT D 500 MG-5 MCG TAB PO SCH (08:47)
[2024-07-29] MEDS: FERROUS SULFATE 325 MG TAB PO SCH (08:47)
[2024-07-29] MEDS ORDERED: NON FORMULARY DRUG (Vitamin B Complex [Vitamin B Complex] 1 EACH Capsule) PO SCH (09:00)
[2024-07-29] MEDS: FLUDROCORTISONE 0.1 MG TAB PO SCH (13:32)
[2024-07-29] MEDS: SODIUM CHLORIDE 0.9% 1,000 ML IV SCH (19:38)
[2024-07-29] MEDS: NORTRIPTYLINE 25 MG CAP PO SCH (20:47)
[2024-07-29] MEDS: ESZOPICLONE 2 MG TABLET PO SCH (20:48)
[2024-07-30] MEDS: ACETAMINOPHEN TAB 325 MG TAB PO PRN (08:21)
--- NOTE | 2024-07-30 09:34 | P.CNNES ---
History of Present Illness Consult date: 07/29/24 Requesting physician: Pushpa Jordan Reason for Consult: Dizziness History of Present Illness: Patient is a 73-year-old right-handed female came to the hospital yesterday at 1:33 PM for recurrent episode of dizziness, falls for last couple weeks. The dizziness and falls occurs when she is up walking. She will be taking a few steps and falls forwards or sideways, 1 time she hit her head into the wall. She feels like she is being pushed. She has fell about 10 times in the last couple weeks. Patient believes that they have found that her blood pressure is dropping when she is standing which is producing these episodes of syncope. She becomes dizzy and falls. Her blood pressure medications have been adjusted and she was hydrated and she has not had any dizzy spells since she arrived to the hospital. She admits to drinking fluids when she is thirsty. She does not eat salt. Patient follows up with Dr. Cavazos. Patient has been diagnosed with neuropathy in the feet. Patient has numbness of the distal three fourths of both feet. She also has low back pain and some disc disease and believes her feet numbness could be related to the back issues. Patient is planning to undergo back surgery in the future. Patient has appointment with her neurologist Dr. Cavazos next month. She is currently on gabapentin. Vital signs on arrival blood pressure 120/71 pulse rate 69 temperature 98.7. Orthostatics were checked, and is positive. Supine blood pressure 135/64, sitting 129/65 and standing 106/68. Pulse was 69, 70 and 64 respectively. Blood test shows normal CBC, PT PTT, sodium 129, potassium 5.0, normal renal and hepatic panel with AST 45, ALT 28. Troponin negative. TSH normal. UA negative. EKG showed sinus rhythm. CT of the head showed no acute intracranial process. I personally reviewed CT head agree with the findings. Visualized paranasal sinuses and external auditory canals are clear. CT of the cervical spine showed no acute fracture or traumatic subluxation of the cervical spine. X-ray of the ribs showed no fracture. Patient has hypertension denies diabetes, tobacco or alcohol use. Home medications include meclizine, iron, Reglan, nortriptyline 50 mg at bedtime, atenolol, aspirin, ibuprofen, gabapentin 300 mg 4 times daily, Lunesta 2 mg at bedtime, lisinopril, amlodipine, Estrace multivitamin. Review of Systems All pertinent positive and negative review of systems mentioned in the HPI oth erwise unremarkable. Past Medical History Past Medical History: Hypertension, Osteoarthritis (OA) Additional Past Medical History / Comment(s): Diverticulitis, back problems, allergies, insomnia. History of Any Multi-Drug Resistant Organisms: None Reported Past Surgical History: Back Surgery, Section, Hysterectomy, Orthopedic Surgery, Tonsillectomy, Tubal Ligation Additional Past Surgical History / Comment(s): Bilateral carpal tunnel surgery, left breast benign biopsy X3, left knee arthroscopy. Right arthroscopic rotator cuff repair,marisa cataracts, pain procedures Past Anesthesia/Blood Transfusion Reactions: Postoperative Nausea & Vomiting (PONV) Additional Past Anesthesia/Blood Transfusion Reaction / Comment(s): "Sister slow to wake up." Past Psychological History: Depression Additional Psychological History / Comment(s): Mild depression. Smoking Status: Never smoker Past Alcohol Use History: None Reported Additional Past Alcohol Use History / Comment(s): every 3-4 years Past Drug Use History: None Reported - Past Family History Sister(s) Family Medical History: Cancer Medications and Allergies Home Medications Medication Instructions Recorded Confirmed Type Ipratropium [place] [Ipratropium 2 sprays PO DAILY PRN 07/12/17 07/28/24 History [place] 0.03%] Multivitamins, Thera [Multivitamin 1 tab PO DAILY 07/12/17 07/28/24 History (formulary)] amLODIPine BESYLATE [Norvasc] 5 mg PO HS 07/12/17 07/28/24 History estradioL [Estrace] 1 mg PO DAILY 07/12/17 07/28/24 History lisinopriL [Zestril] 20 mg PO DAILY 07/12/17 07/28/24 History Melatonin [Melatonin Tr] 10 mg PO HS 11/25/21 07/28/24 History Calcium Carbonate/Vitamin D3 1 cap PO DAILY 07/13/23 07/28/24 History [Calcium 600 mg-D3 10 Mcg (400 Iu)] Eszopiclone [Lunesta] 2 mg PO HS 07/13/23 07/28/24 History L.acidoph,Paracasei, B.lactis 1 cap PO DAILY 07/13/23 07/28/24 History [Probiotic] Gabapentin 300 mg PO QID PRN 08/16/23 07/28/24 History Magnesium Oxide [Mag-Ox] 400 mg PO BID 11/26/23 07/28/24 History Ibuprofen 800 mg PO TID PRN 12/10/23 07/28/24 History Aspirin [[place] Aspirin EC] 81 mg PO DAILY 07/27/24 07/28/24 History Ferrous Sulfate [Feosol] 325 mg PO DAILY 07/27/24 07/28/24 History Meclizine [Antivert] 25 mg PO TID PRN #12 tab 07/27/24 07/28/24 Rx Metoclopramide HCl [Reglan] 10 mg PO Q6HR PRN #15 tablet 07/27/24 07/28/24 Rx Mv-Min/FA/Vit K/Lutein/Zeaxant 1 cap PO BID 07/27/24 07/28/24 History [Preservision Areds 2 Plus Mv] Naproxen Sodium [Aleve] 220 mg PO BID PRN 07/27/24 07/28/24 History Nortriptyline [Pamelor] 50 mg PO HS 07/27/24 07/28/24 History Vitamin B Complex 1 cap PO DAILY 07/27/24 07/28/24 History atenoloL [Tenormin] 25 mg PO BID 07/27/24 07/28/24 History Allergies Allergy/AdvReac Type Severity Reaction Status Date / Time amoxicillin Allergy Rash/Hives Verified 07/28/24 16:46 codeine Allergy agitated,re Verified 07/28/24 16:46 stless prochlorperazine Allergy agitated,re Verified 07/28/24 16:46 [From Compazine] stless Physical Examination - Vital Signs Vital Signs: Vital Signs Temp Pulse Pulse Pulse Pulse Resp BP 07/29/24 14:51 98.3 F 73 15 07/29/24 10:30 98.0 F 69 16 07/29/24 07:00 70 18 07/29/24 06:29 72 16 07/29/24 01:47 68 12 07/28/24 23:04 72 18 07/28/24 21:49 70 16 124/72 07/28/24 19:50 79 12 107/61 BP BP BP Pulse Ox 07/29/24 14:51 110/71 94 L 07/29/24 10:30 120/73 96 07/29/24 07:00 130/67 97 07/29/24 06:29 123/67 99 07/29/24 01:47 114/62 94 L 07/28/24 23:04 134/79 96 07/28/24 21:49 95 07/28/24 19:50 94 L Intake and Output 07/29/24 07/29/24 07/29/24 06:59 14:59 22:59 Other: Voiding Method Toilet # Voids 2 1 Weight 54.431 kg Patient is an elderly female, very pleasant, in no acute distress. Patient is alert awake oriented to time place and person. Speech and language functions are normal. Patient can name and repeat very well. No aphasia or dysarthria. Attention, concentration and fund of knowledge is adequate. On cranial nerve examination, pupils are equal, round and reacting to light, vis ual chowdhury are full on confrontation, with no neglect on double simultaneous stimulation. Extraocular muscles are intact with no nystagmus. Face is symmetric, tongue protrudes to the midline. Palatal elevation and sensation normal, hearing and shoulder shrug normal, facial sensation normal. On muscle strength testing, there is no pronator drift and the strength is normal in arms and legs distally and proximally. Deep tendon reflexes are symmetric but hypoactive and plantars are down. Sensory to touch is equal with no neglect on double simultaneous stimulation. Cerebellar function showed no ataxia for [id number] testing. No dysdiadochokinesia. No ataxia for [id number] testing on either side. Tone and bulk of muscles normal. Gait deferred.. On general examination, there is no carotid bruit or murmur, S1-S2 audible. Chest is clear on consultation. Abdomen is soft nontender. No organomegaly, bowel sounds present. Peripheral pulses are present. No peripheral edema. Results - Laboratory Findings CBC and BMP: 07/28/24 14:51 07/28/24 14:51 Abnormal Lab Findings: Abnormal Labs 07/28/24 07/28/24 07/28/24 14:51 15:05 15:29 Sodium 129 L Osmolality 271 L AST 45 H Urine Osmolality 224 L Assessment and Plan Assessment: * Recurrent episodes of dizziness and syncope, off and on for last 2 weeks, likely due to orthostatic hypotension. * Hypertension * Peripheral neuropathy * Chronic back pain Plan: * Patient's positional dizziness and syncope likely from orthostatic hypote nsion. Cardiology on board. Her blood pressure medications are being adjusted by PCP. * CTA of head and neck revealed no evidence of dissection of the cervical internal carotid arteries or vertebral arteries or any evidence of significant stenosis at the carotid bifurcation. No evidence of high-grade stenosis or intracranial aneurysm. * CT head showed no acute process. * Nephrology on board for hyponatremia. * Patient states she has not had any dizzy spells or syncope since she arrived to the hospital. * Check B12, folate, TSH. * Neurologically, no other workup indicated. Patient has an appointment with her neurologist Dr. Cavazos in 1 month. * Thank you for the consult. Addendum: B12 2452, folate 34.8, TSH 1.07, all normal.
[2024-07-30 10:01] LABS: Blood Urea Nitrogen 14.7 mg/dL (9.0-27.0); Glucose 89 mg/dL (70-110)
[2024-07-30 10:02] LABS: Calcium 8.5 mg/dL (8.7-10.3); Carbon Dioxide 22.7 mmol/L (21.6-31.8); Chloride 100 mmol/L (96-109); Sodium 134 mmol/L (135-145)
--- NOTE | 2024-07-30 11:31 | P.NPCON ---
History of Present Illness - Reason for Consult Consult date: 07/30/24 - Chief Complaint Dizziness - History of Present Illness Patient is a pleasant 73-year-old female past medical Struve hypertension presenting today for hypotension and dizziness. Patient was here yesterday morning after dizziness caused fall, ultimately discharged home after reassuring imaging and labs. Here last night for hypotension dizziness, ultimately discharged after orthostatic hypotension resolved with IV fluids and patient's symptoms resolved. Patient did not take any of her blood pressure medications this morning and measured her blood pressure which was 107 systolic. Patient's granddaughter sent her to the emergency department for further evaluation. Patient did feel slightly dizzy this morning but took an Antivert which improved her symptoms. Patient seen today bedside doing well. Believe her BP medication was too much and has been adjusted. Has been told about her low sodium by PCP in past and encouraged to eat more protein. Vital signs are stable. General: No acute distress. HEENT: Head exam is unremarkable. LUNGS: No audible rhonchi or wheezes. HEART: Rate and Rhythm are regular. ABDOMEN: Nontender. EXTREMITITES: No edema. Review of Systems Constitutional: Reports as per HPI Past Medical History Past Medical History: Hypertension, Osteoarthritis (OA) Additional Past Medical History / Comment(s): Diverticulitis, back problems, allergies, insomnia. History of Any Multi-Drug Resistant Organisms: None Reported Past Surgical History: Back Surgery, Section, Hysterectomy, Orthopedic Surgery, Tonsillectomy, Tubal Ligation Additional Past Surgical History / Comment(s): Bilateral carpal tunnel surgery, left breast benign biopsy X3, left knee arthroscopy. Right arthroscopic rotator cuff repair,marisa cataracts, pain procedures Past Anesthesia/Blood Transfusion Reactions: Postoperative Nausea & Vomiting (PONV) Additional Past Anesthesia/Blood Transfusion Reaction / Comment(s): "Sister slow to wake up." Past Psychological History: Depression Additional Psychological History / Comment(s): Mild depression. Smoking Status: Never smoker Past Alcohol Use History: None Reported Additional Past Alcohol Use History / Comment(s): every 3-4 years Past Drug Use History: None Reported - Past Family History Sister(s) Family Medical History: Cancer Medications and Allergies Home Medications Medication Instructions Recorded Confirmed Type Ipratropium [place] [Ipratropium 2 sprays PO DAILY PRN 07/12/17 07/28/24 History [place] 0.03%] Multivitamins, Thera [Multivitamin 1 tab PO DAILY 07/12/17 07/28/24 History (formulary)] amLODIPine BESYLATE [Norvasc] 5 mg PO HS 07/12/17 07/28/24 History estradioL [Estrace] 1 mg PO DAILY 07/12/17 07/28/24 History lisinopriL [Zestril] 20 mg PO DAILY 07/12/17 07/28/24 History Melatonin [Melatonin Tr] 10 mg PO HS 11/25/21 07/28/24 History Calcium Carbonate/Vitamin D3 1 cap PO DAILY 07/13/23 07/28/24 History [Calcium 600 mg-D3 10 Mcg (400 Iu)] Eszopiclone [Lunesta] 2 mg PO HS 07/13/23 07/28/24 History L.acidoph,Paracasei, B.lactis 1 cap PO DAILY 07/13/23 07/28/24 History [Probiotic] Gabapentin 300 mg PO QID PRN 08/16/23 07/28/24 History Magnesium Oxide [Mag-Ox] 400 mg PO BID 11/26/23 07/28/24 History Ibuprofen 800 mg PO TID PRN 12/10/23 07/28/24 History Aspirin [[place] Aspirin EC] 81 mg PO DAILY 07/27/24 07/28/24 History Ferrous Sulfate [Feosol] 325 mg PO DAILY 07/27/24 07/28/24 History Meclizine [Antivert] 25 mg PO TID PRN #12 tab 07/27/24 07/28/24 Rx Metoclopramide HCl [Reglan] 10 mg PO Q6HR PRN #15 tablet 07/27/24 07/28/24 Rx Mv-Min/FA/Vit K/Lutein/Zeaxant 1 cap PO BID 07/27/24 07/28/24 History [Preservision Areds 2 Plus Mv] Naproxen Sodium [Aleve] 220 mg PO BID PRN 07/27/24 07/28/24 History Nortriptyline [Pamelor] 50 mg PO HS 07/27/24 07/28/24 History Vitamin B Complex 1 cap PO DAILY 07/27/24 07/28/24 History atenoloL [Tenormin] 25 mg PO BID 07/27/24 07/28/24 History Allergies Allergy/AdvReac Type Severity Reaction Status Date / Time amoxicillin Allergy Rash/Hives Verified 07/28/24 16:46 codeine Allergy agitated,re Verified 07/28/24 16:46 stless prochlorperazine Allergy agitated,re Verified 07/28/24 16:46 [From Compazine] stless Physical Exam Vitals: Vital Signs Temp Pulse Pulse Pulse Pulse Resp BP 07/30/24 07:00 97.7 F 77 80 76 15 07/29/24 18:40 97.8 F 76 16 118/74 07/29/24 16:06 73 74 71 16 07/29/24 14:51 98.3 F 73 15 07/29/24 10:30 98.0 F 69 16 BP BP BP Pulse Ox 07/30/24 07:00 100/61 96/63 123/74 97 07/29/24 18:40 94 L 07/29/24 16:06 99/65 103/67 114/73 94 L 07/29/24 14:51 110/71 94 L 07/29/24 10:30 120/73 96 Intake and Output 07/29/24 07/30/24 07/30/24 22:59 06:59 14:59 Other: Voiding Method Toilet Toilet # Voids 2 1 Results - Lab Results Most recent lab results Calcium 10.0 mg/dL (8.4-10.2) 07/28/24 14:51 Magnesium 1.8 mg/dL (1.6-2.3) 07/28/24 14:51 07/28/24 14:51 07/30/24 05:40 Assessment and Plan Assessment: 1. Hypovolemic Hyponatremia. Presented sodium 129, improved to 134 with IVF. Osmolality 271. 2. Dizziness with hypotension likely orthostatic 3. History of Hypertension Plan: Continue on IVF Add fluid restriction 1500cc Check urine sodium and urine osmolality Given chronic mild hyponatremia doubt causing dizziness Clear for discharge
[2024-07-31 08:12] VITALS: BP 127/74; PULSE 67; RESP 20; TEMP 97.5
[2024-07-31 09:03] LABS: ALT 20 U/L (8-44); AST 25 U/L (13-35); Albumin 3.6 g/dL (3.8-4.9); Alkaline Phosphatase 56 U/L (41-126); BUN/Creat Ratio 22.83 Ratio (12.00-20.00); Blood Urea Nitrogen 13.7 mg/dL (9.0-27.0); Carbon Dioxide 23.1 mmol/L (21.6-31.8); Chloride 104 mmol/L (96-109); Globulin 2.4 g/dL (1.6-3.3); Glucose 84 mg/dL (70-110); Potassium 3.6 mmol/L (3.5-5.5); Sodium 137 mmol/L (135-145); Total Bilirubin 0.3 mg/dL (0.3-1.2)
--- NOTE | 2024-07-31 09:09 | HP ---
HISTORY AND PHYSICAL CHIEF COMPLAINT: Dizziness and hypotension. HISTORY OF PRESENT ILLNESS: This 73-year-old woman, with a past medical history of multiple medical problems including hypertension and history of DJD, is complaining of dizziness. The patient has had orthostatic hypotension. There is no history of fever, rigors, or chills. No history of headache, loss of consciousness, or seizures. PAST MEDICAL HISTORY: History of hypertension, history of DJD, history of back surgery. Rest of the chart is also reviewed. HOME MEDICATIONS: Zestril, dose and rest of medications reviewed. ALLERGIES: Amoxicillin. FAMILY HISTORY: History of cancer. SOCIAL HISTORY: No history of smoking or alcohol. REVIEW OF SYSTEMS: 14-point review of systems is negative except as mentioned earlier. PHYSICAL EXAMINATION: VITAL SIGNS: Pulse is 69, blood pressure n respirations 16. HEENT: Conjunctivae normal. NECK: n. CARDIOVASCULAR: n RESPIRATIONS: Breath sounds diminished at the bases. A few scattered rhonchi. ABDOMEN: Soft. . LABORATORY DATA: Sodium 129. Osmolality 271. ASSESSMENT: 1. Dizziness, orthostatic hypotension. 2. Hyponatremia. 3. Degenerative joint disease. 4. History of back surgery. 5. History of section. 6. Multiple complex medical issues. RECOMMENDATIONS AND DISCUSSION: This 73-year-old woman presented with multiple complex medical issues. We will monitor the patient closely, continue the current medications, symptomatic treatment. Otherwise, I would recommend nephrology consult for hyponatremia. Otherwise, continue to monitor. We will recommend [place]. Check orthostatic vitals. Guarded prognosis. Further recommendations to follow. MMODL / IJN: [id number] / JENNIFER
[2024-07-31 09:24] LABS: Basophils # (A) 0.06 X 10*3/uL (0.00-0.10); Basophils % (A) 1.2 %; Eosinophils # (A) 0.66 X 10*3/uL (0.04-0.35); Eosinophils % (A) 13.6 %; HCT 35.1 % (37.2-46.3); Lymphocytes # (A) 1.34 X 10*3/uL (0.90-5.00); Lymphocytes % (A) 27.6 %; MCH 30.3 pg (27.0-32.0); MCHC 34.2 g/dL (32.0-37.0); MCV 88.6 FL (80.0-97.0); Mean Platelet Volume 9.4 FL (9.5-12.2); Monocytes # (A) 0.68 X 10*3/uL (0.20-1.00); NRBC Per 100 WBC 0 X 10*3/uL (0.00-0.01); Neutrophils # (A) 2.09 X 10*3/uL (1.80-7.70); Neutrophils % (A) 43.2 %; Platelet Count 361 X 10*3/uL (140-440); RBC 3.96 X 10*6/uL (4.10-5.20); RDW 12.9 % (11.5-14.5); WBC 4.85 X 10*3/uL (4.50-10.00)
--- NOTE | 2024-07-31 12:02 | PN ---
PROGRESS NOTE DATE OF SERVICE: 07/30/2024 SUBJECTIVE: This 73-year-old woman was admitted with multiple falls as well as dizziness, is being evaluated at this time. The patient is significantly orthostatically hypotensive. At this time, the patient is on Florinef. The patient's the patient is refusing. PAST MEDICAL HISTORY: Reviewed. MEDICATIONS: Reviewed. PHYSICAL EXAMINATION: VITAL SIGNS: Pulse 71, blood pressure noted, respirations 15. CARDIOVASCULAR: S1, S2. RESPIRATIONS: A few scattered rhonchi. ABDOMEN: Soft. NERVOUS SYSTEM: Nonfocal. LABORATORY DATA: Reviewed. ASSESSMENT: 1. Dizziness and syncope. Possibly orthostatic hypotension. 2. History of hypertension. 3. Peripheral neuropathy. 4. Chronic back pain. 5. Hyponatremia. 6. Multiple complex medical issues. RECOMMENDATIONS AND DISCUSSION: Recommend to continue the current management. Continue the Florinef. IV fluids per Nephrology. Repeat labs. Sodium is improving at this time. We will continue to monitor. Prognosis guarded. Neurology input appreciated. Further recommendations to follow. MMODL / IJN: [id number] / MTDD
--- NOTE | 2024-07-31 12:52 | P.PN ---
Subjective Progress Note Date: 07/31/24 Patient seen in follow-up for hyponatremia. No new complaints. Vital signs are stable. General: No acute distress. HEENT: Head exam is unremarkable. LUNGS: No audible rhonchi or wheezes. HEART: Rate and Rhythm are regular. ABDOMEN: Nontender. EXTREMITITES: No edema. Objective - Vital Signs Vital signs: Vital Signs Temp 97.5 F L 07/31/24 07:00 Pulse 67 07/31/24 07:00 Resp 20 07/31/24 07:00 BP 127/74 07/31/24 07:00 Pulse Ox 94 L 07/31/24 03:20 FiO2 Intake & Output 07/30/24 07/31/24 07/31/24 18:59 06:59 18:59 Intake Total 236 Output Total 350 Balance -114 Intake: Oral 236 Output: Urine 350 Other: Voiding Method Toilet # Voids 1 3 - Labs CBC & Chem 7: 07/31/24 05:36 07/31/24 05:36 Labs: Abnormal Lab Results - Last 24 Hours (Table) 07/30/24 07/30/24 07/31/24 Range/Units 13:06 13:06 05:36 RBC 3.96 L (4.10-5.20) X 10*6/uL Hct 35.1 L (37.2-46.3) % MPV 9.4 L (9.5-12.2) FL Eosinophils # 0.66 H (0.04-0.35) X 10*3/uL BUN/Creatinine Ratio (12.00-20.00) Ratio Calcium (8.7-10.3) mg/dL Total Protein (6.2-8.2) g/dL Albumin (3.8-4.9) g/dL Albumin/Globulin Ratio (1.60-3.17) Ratio Urine Osmolality 336 L (400-1100) mOsm/kg Ur Random Sodium 25 L (40-220) mmol/L 07/31/24 Range/Units 05:36 RBC (4.10-5.20) X 10*6/uL Hct (37.2-46.3) % MPV (9.5-12.2) FL Eosinophils # (0.04-0.35) X 10*3/uL BUN/Creatinine Ratio 22.83 H (12.00-20.00) Ratio Calcium 8.0 L (8.7-10.3) mg/dL Total Protein 6.0 L (6.2-8.2) g/dL Albumin 3.6 L (3.8-4.9) g/dL Albumin/Globulin Ratio 1.50 L (1.60-3.17) Ratio Urine Osmolality (400-1100) mOsm/kg Ur Random Sodium (40-220) mmol/L Assessment and Plan Assessment: 1. Hypovolemic Hyponatremia-Resolved. Presented sodium 129, improved to 137 with IVF. Osmolality 271. 2. Dizziness with hypotension likely orthostatic 3. History of Hypertension Plan: Discontinue on IVF Fluid restriction 1500cc Clear for discharge
--- NOTE | 2024-08-01 13:46 | P.DS ---
Providers Date of admission: 07/28/24 17:34 Expected date of discharge: 07/31/24 Attending physician: Brendon Grande MD Consults: 07/28/24 17:34 Consult Physician Routine Consulting Provider: Haroldo Hong Consult Reason/Comments: Dizziness Do you want consulting provider notified?: Yes, Notify in am 07/29/24 16:06 Consult Physician Routine Consulting Provider: Eduard Berg Consult Reason/Comments: hypo natremia Do you want consulting provider notified?: Yes Primary care physician: Thomas Toussaint [facility] Course: Final diagnosis Dizziness, orthostatic hypotension, improving Hyponatremia, improved Degenerative joint disease history History of back surgery GI prophylaxis DVT prophylaxis Full code Discharge disposition Patient is being discharged in a stable condition with guarded prognosis to home. Patient will follow-up with Dr. Toussaint in the outpatient setting upon discharge. Patient is to continue with current medications and outpatient follow-up with cardiology and neurology as scheduled. Total time taken is greater than 35 minutes. Hospital course This is a 73-year-old female who was recently admitted with dizziness and found to have orthostatic hypotension being closely monitored with cardiology and neurology following. Patient will need outpatient follow-up with them in the outpatient setting and reports to feeling improved and would like to go home. Patient has been cleared by consultations for discharge home. Please refer to other consultation notes for further HPI. Currently no reports of chest pain, shortness of breath, or palpitations. Patient is afebrile. No reports of nausea or vomiting and patient is tolerating diet. Patient will be discharged home today. Guarded prognosis Physical exam: Gen: This is a 73-year-old female who is awake, alert and oriented x 3, well- developed, elderly appearing HEENT: Head is atraumatic, normocephalic. Pupils equal, round. Sclerae is anicteric. NECK: Supple. No JVD. No lymphadenopathy. No thyromegaly. LUNGS: Clear to auscultation. No wheezes or rhonchi. No intercostal retractions. HEART: Regular rate and rhythm. No murmur. ABDOMEN: Soft. Bowel sounds are present. No masses. No tenderness. EXTREMITIES: No pedal edema. No calf tenderness. NEUROLOGICAL: Patient is awake, alert and oriented x3. Cranial nerves 2 through 12 are grossly intact. Please refer to medication reconciliation sheet for a list of medications. The impression and plan of care has been dictated by Gabby Salcedo, Nurse Practitioner as directed. Dr. Kali MD I have performed a history and examination and MDM of this patient, discussed the same with the dictator, and agree with the dictator's assessment and plan as written ,documented as a scribe. Based on total visit time, I have performed more than 50% of the visit. Patient Condition at Discharge: Good Plan - Discharge Summary Discharge Rx Participant: No New Discharge Prescriptions: New Fludrocortisone [Florinef] 0.2 mg PO DAILY #60 tab Gabapentin [Neurontin] 300 mg PO TID PRN cap Acetaminophen Tab [Tylenol] 650 mg PO Q6HR PRN tab PRN Reason: Mild Pain Or Fever > 100.5 Mag Hydrox/Al Hydrox/Simeth [Maalox] 15 ml PO Q6HR PRN ml PRN Reason: Indigestion Continue Multivitamins, Thera [Multivitamin (formulary)] 1 tab PO DAILY Ipratropium Alpine [Ipratropium Alpine 0.03%] 2 sprays PO DAILY PRN PRN Reason: Allergy Symptoms estradioL [Estrace] 1 mg PO DAILY amLODIPine BESYLATE [Norvasc] 5 mg PO HS lisinopriL [Zestril] 20 mg PO DAILY Melatonin [Melatonin Tr] 10 mg PO HS Calcium Carbonate/Vitamin D3 [Calcium 600 mg-D3 10 Mcg (400 Iu)] 1 cap PO DAILY L.acidoph,Paracasei, B.lactis [Probiotic] 1 cap PO DAILY Aspirin [[place]aries Aspirin EC] 81 mg PO DAILY Nortriptyline [Pamelor] 50 mg PO HS Mv-Min/FA/Vit K/Lutein/Zeaxant [Preservision Areds 2 Plus Mv] 1 cap PO BID Naproxen Sodium [Aleve] 220 mg PO BID PRN PRN Reason: Pain Or Fever > 100.5 Metoclopramide HCl [Reglan] 10 mg PO Q6HR PRN #15 tablet PRN Reason: Nausea Eszopiclone [Lunesta] 2 mg PO HS Magnesium Oxide [Mag-Ox] 400 mg PO BID Ibuprofen 800 mg PO TID PRN PRN Reason: Pain Or Fever > 100.5 Ferrous Sulfate [Iron (65 MG Elemental)] 325 mg PO DAILY Vitamin B Complex 1 cap PO DAILY Meclizine [Antivert] 25 mg PO TID PRN #12 tab PRN Reason: dizziness Discontinued atenoloL [Tenormin] 25 mg PO BID Gabapentin 300 mg PO QID PRN PRN Reason: nerve pain Discharge Medication List Ipratropium Alpine [Ipratropium Alpine 0.03%] 2 sprays PO DAILY PRN 07/12/17 [History] Multivitamins, Thera [Multivitamin (formulary)] 1 tab PO DAILY 07/12/17 [History] amLODIPine BESYLATE [Norvasc] 5 mg PO HS 07/12/17 [History] estradioL [Estrace] 1 mg PO DAILY 07/12/17 [History] lisinopriL [Zestril] 20 mg PO DAILY 07/12/17 [History] Melatonin [Melatonin Tr] 10 mg PO HS 11/25/21 [History] Calcium Carbonate/Vitamin D3 [Calcium 600 mg-D3 10 Mcg (400 Iu)] 1 cap PO DAILY 07/13/23 [History] Eszopiclone [Lunesta] 2 mg PO HS 07/13/23 [History] L.acidoph,Paracasei, B.lactis [Probiotic] 1 cap PO DAILY 07/13/23 [History] Magnesium Oxide [Mag-Ox] 400 mg PO BID 11/26/23 [History] Ibuprofen 800 mg PO TID PRN 12/10/23 [History] Aspirin [Maries Aspirin EC] 81 mg PO DAILY 07/27/24 [History] Ferrous Sulfate [Iron (65 MG Elemental)] 325 mg PO DAILY 07/27/24 [History] Meclizine [Antivert] 25 mg PO TID PRN #12 tab 07/27/24 [Rx] Metoclopramide HCl [Reglan] 10 mg PO Q6HR PRN #15 tablet 07/27/24 [Rx] Mv-Min/FA/Vit K/Lutein/Zeaxant [Preservision Areds 2 Plus Mv] 1 cap PO BID 07/27/24 [History] Naproxen Sodium [Aleve] 220 mg PO BID PRN 07/27/24 [History] Nortriptyline [Pamelor] 50 mg PO HS 07/27/24 [History] Vitamin B Complex 1 cap PO DAILY 07/27/24 [History] Acetaminophen Tab [Tylenol] 650 mg PO Q6HR PRN tab 07/31/24 [Rx] Fludrocortisone [Florinef] 0.2 mg PO DAILY #60 tab 07/31/24 [Rx] Gabapentin [Neurontin] 300 mg PO TID PRN cap 07/31/24 [Rx] Mag Hydrox/Al Hydrox/Simeth [Maalox] 15 ml PO Q6HR PRN ml 07/31/24 [Rx] Follow up Appointment(s)/Referral(s): Thomas Toussaint DO [Primary Care Provider] - 1-2 days Thai Narayan MD [Medical Doctor] - 1 Week Emmanuel Moreira MD [STAFF PHYSICIAN] - 1 Week Ambulatory/Diagnostic Orders: Basic Metabolic Panel [LAB.AMB] Time Frame: 3 Days, Location: None Selected Activity/Diet/Wound Care/Special Instructions: Activity limited until follow-up Follow-up with primary care provider Follow-up with cardiology outpatient Follow-up with nephrology outpatient Continue with fluid restrictions of 40 ounces all day including all oral fluid intake Repeat labs in 2 to 3 days Discharge Disposition: HOME SELF-CARE
== END 2024-07-31 13:47 | disposition home or self-care (01) ==
LOC: EC 13:33 → 6NMEDSUR 17:34
PROVIDERS: ADMIT Internal Medicine; ATTEND Internal Medicine
DX: I95.1 Orthostatic hypotension (principal); R29.6 Repeated falls; E86.1 Hypovolemia; E87.1 Hypo-osmolality and hyponatremia; G62.9 Polyneuropathy, unspecified; G89.29 Other chronic pain; M54.50 Low back pain, unspecified; M19.90 Unspecified osteoarthritis, unspecified site; I10 Essential (primary) hypertension; F32.A Depression, unspecified; Z79.890 Hormone replacement therapy; Z79.899 Other long term (current) drug therapy; Z79.82 Long term (current) use of aspirin; Z88.0 Allergy status to penicillin; Z88.5 Allergy status to narcotic agent
CPT/HCPCS: 99285; 36415; 93005; 84300; 83930; 80053 ×2; 80048; 84443; 82533; 82607; 82746; 83735; 84484; 85025 ×2; 85610; 85730; 81003; 83935 ×2; 71111; 72125; 70450; G0378 ×4

== ENCOUNTER → 2024-08-09 | Outpatient (CLI) | payer MEDICARE, OTHER ==
[2024-08-09 19:53] LABS: Blood Urea Nitrogen 16.8 mg/dL (9.0-27.0); Calcium 9.5 mg/dL (8.7-10.3); Carbon Dioxide 28.1 mmol/L (21.6-31.8); Chloride 101 mmol/L (96-109); Glucose 79 mg/dL (70-110); Sodium 140 mmol/L (135-145)
[2024-08-09 20:12] LABS: Basophils # (A) 0.06 X 10*3/uL (0.00-0.10); Basophils % (A) 1.2 %; Eosinophils # (A) 0.29 X 10*3/uL (0.04-0.35); Eosinophils % (A) 5.6 %; HCT 38.6 % (37.2-46.3); HGB 12.8 g/dL (12.0-15.0); Lymphocytes # (A) 1.43 X 10*3/uL (0.90-5.00); Lymphocytes % (A) 27.6 %; MCH 30.3 pg (27.0-32.0); MCHC 33.2 g/dL (32.0-37.0); MCV 91.5 FL (80.0-97.0); Mean Platelet Volume 9.7 FL (9.5-12.2); Monocytes # (A) 0.48 X 10*3/uL (0.20-1.00); Monocytes % (A) 9.2 %; NRBC Per 100 WBC 0 X 10*3/uL (0.00-0.01); Neutrophils # (A) 2.92 X 10*3/uL (1.80-7.70); Neutrophils % (A) 56.2 %; Platelet Count 387 X 10*3/uL (140-440); RBC 4.22 X 10*6/uL (4.10-5.20); RDW 14.2 % (11.5-14.5); WBC 5.19 X 10*3/uL (4.50-10.00)
== END | disposition home or self-care (01) ==
LOC: LABWHC1 14:15
PROVIDERS: ATTEND Family Medicine
DX: I10 Essential (primary) hypertension (principal)
CPT/HCPCS: 36415; 80048; 85025

== ENCOUNTER → 2024-09-20 | Day surgery (SDC) | payer MEDICARE, OTHER ==
[~2024-09-20] MED LIST changes: -LACTATED RINGERS 1,000 ML IV SCH; +PROPOFOL 10 MG/ML 20 ML VIAL IV ONE
[2024-09-20] MEDS: LACTATED RINGERS 1,000 ML IV ONE (10:28)
[2024-09-20 10:29] VITALS: TEMP 97.9
[2024-09-20] MEDS: LACTATED RINGERS 1,000 ML IV SCH (10:41)
--- NOTE | 2024-09-20 11:10 | P.PCN ---
Date of Procedure: 09/20/24 Procedure(s) Performed: BRIEF HISTORY: Patient is a 73-year-old pleasant white female scheduled for an elective colonoscopy as a part of evaluation of change in bowel habits and intermittent fecal incontinence for the 8 months duration PROCEDURE PERFORMED: Colonoscopy. PREOPERATIVE DIAGNOSIS: Change in bowel habits and intermittent fecal incontinence. IV sedation per Anesthesia. PROCEDURE: After informed consent was obtained, the patient, was brought into the endoscopy unit. IV sedation was administered by Anesthesia under continuous monitoring. Digital rectal examination revealed decreased anal sphincter pressure.. Initially the Olympus CF-160 flexible video colonoscope was then inserted in the rectum, gradually advanced into the cecum without any difficulty. Careful examination was performed as the scope was gradually being withdrawn. Ileocecal valve and the appendiceal orifice were visualized and appeared normal. Prep was excellent. Mucosa of the cecum, ascending colon, transverse colon, descending colon, sigmoid colon, and rectum appeared normal. Sigmoid diverticulosis retroflexion was performed in the rectum and no lesions were seen. The patient tolerated the procedure well. IMPRESSION: Decreased anal sphincter pressure Normal-appearing colon from rectum to cecum without any evidence of colorectal neoplasia. Moderate sigmoid diverticulosis. RECOMMENDATIONS: Findings of this examination were discussed with the patient as well as her family.. She was advised to be on high-fiber diet take fiber supplements on a regular basis. Follow-up in the office in 3 to 4 weeks.
[2024-09-20 11:37] VITALS: BP 132/81; PULSE 92; RESP 20
== END ==
LOC: ORWHC2ENDO 09:56
PROVIDERS: ATTEND Internal Medicine Gastroenterology
DX: K57.30 Diverticulosis of large intestine without perforation or abscess without bleeding (principal); I10 Essential (primary) hypertension; M19.90 Unspecified osteoarthritis, unspecified site; F32.A Depression, unspecified; Z88.5 Allergy status to narcotic agent; Z88.0 Allergy status to penicillin; Z88.8 Allergy status to other drugs, medicaments and biological substances; Z79.899 Other long term (current) drug therapy
CPT/HCPCS: 45378; J2704; 45380

== ENCOUNTER → 2024-11-07 | Outpatient (CLI) | payer MEDICARE, OTHER ==
--- NOTE | 2024-11-08 15:45 | MR ---
INDICATION: Patient age:Female; 73 years old; Reason for study: M54.50, M43.16, M62.81; [facility]. COMPARISONS: CT lumbar spine 05/16/2024, MRI lumbar spine 05/10/2023. TECHNIQUE: Multi planar, multi sequence imaging was performed utilizing: T1-weighted, T2-weighted, a nd turbo inversion recovery imaging of the lumbar spine. The patient was not given contrast. FINDINGS: Lumbar segments are intact. No paraspinal masses are identified. Conus medullaris has a n ormal appearance. Grade 1 anterolisthesis of L3 on L4 and L4 on L5 with mild retrolisthesis of L5 on S1 redemonstrated. Postsurgical changes from right posterior fusion with pedicular enma and screws inv olving L4-L5 with disc spacer redemonstrated. Additional screw involving the spinous processes at L5. This hardware creates susceptibility artifact which limits evaluation. Additional postsurgical haro es with bilateral screws involving the SI joints. Multilevel disc desiccation. Type I Modic changes involving the superior endplate of the S1 vertebral body and inferior endplate of the L5 vertebral body again. There is corresponding increased STIR sig nal consistent with edema. T12-L1: No herniation, protrusion or disc bulging. No canal stenosis is present. Foramina are paten t bilaterally. L1-L2: No herniation, protrusion or disc bulging. No canal stenosis is present. Foramina are patent bilaterally. L2-L3: No herniation, protrusion or disc bulging. No canal stenosis is present. Foramina are patent bilaterally. L3-L4: Grade 1 anterolisthesis. Broad-based disc bulge with ligamentum flavum buckling resulting in m ild central canal stenosis. Bilateral facet arthropathy. Moderate bilateral neural foraminal stenosis . L4-L5: Grade 1 anterolisthesis. Postsurgical changes. No central canal stenosis. Mild right neural fo raminal stenosis. The left neural foramen is patent. L5-S1: Mild retrolisthesis. Broad-based disc bulge without significant effacement of the anterior the charisse sac. No central canal stenosis. Bilateral facet arthropathy. Moderate bilateral neural foraminal stenosis. IMPRESSION: Overall stable exam from prior MR 05/10/2023 with postsurgical changes at L4-L5 and the bilateral SI j oints. Similar mild multilevel degenerative disc disease most pronounced at L3-L4 with mild central c anal stenosis and moderate bilateral neural foraminal stenosis secondary to disc bulge with ligamentu m flavum buckling and facet arthropathy. [facility], , 11/08/2024 3:43 PM
== END | disposition home or self-care (01) ==
LOC: RADMRIMAIN 16:40
PROVIDERS: ATTEND Orthopaedic Surgery
DX: M43.16 Spondylolisthesis, lumbar region (principal); M62.81 Muscle weakness (generalized); M51.360 Other intervertebral disc degeneration, lumbar region with discogenic back pain only; M48.061 Spinal stenosis, lumbar region without neurogenic claudication; M99.73 Connective tissue and disc stenosis of intervertebral foramina of lumbar region; M47.816 Spondylosis without myelopathy or radiculopathy, lumbar region
CPT/HCPCS: 72148

== ENCOUNTER → 2025-01-10 | Outpatient (CLI) | payer MEDICARE, OTHER ==
[2025-01-10 15:30] LABS: INR 1.1 (<1.2); Partial Thromboplastin Time 25.9 sec (22.0-30.0); Prothrombin Time 11.5 sec (10.0-12.5)
[2025-01-10 18:18] LABS: Basophils # (A) 0.07 X 10*3/uL (0.00-0.10); Basophils % (A) 1.2 %; Eosinophils # (A) 0.26 X 10*3/uL (0.04-0.35); Eosinophils % (A) 4.3 %; HCT 42.4 % (37.2-46.3); HGB 14.2 g/dL (12.0-15.0); Lymphocytes # (A) 1.91 X 10*3/uL (0.90-5.00); Lymphocytes % (A) 31.9 %; MCH 30.8 pg (27.0-32.0); MCHC 33.5 g/dL (32.0-37.0); Mean Platelet Volume 10.2 FL (9.5-12.2); Monocytes # (A) 0.48 X 10*3/uL (0.20-1.00); NRBC Per 100 WBC 0 X 10*3/uL (0.00-0.01); Neutrophils # (A) 3.26 X 10*3/uL (1.80-7.70); Neutrophils % (A) 54.4 %; Platelet Count 340 X 10*3/uL (140-440); RBC 4.61 X 10*6/uL (4.10-5.20); RDW 13.2 % (11.5-14.5); WBC 5.99 X 10*3/uL (4.50-10.00)
[2025-01-10 21:58] LABS: ALT 25 U/L (8-44); AST 32 U/L (13-35); Albumin 4.5 g/dL (3.8-4.9); Albumin/Globulin Ratio 2.05 Ratio (1.60-3.17); Alkaline Phosphatase 65 U/L (41-126); BUN/Creat Ratio 18.44 Ratio (12.00-20.00); Blood Urea Nitrogen 16.6 mg/dL (9.0-27.0); Calcium 9.8 mg/dL (8.7-10.3); Carbon Dioxide 24.3 mmol/L (21.6-31.8); Chloride 101 mmol/L (96-109); Globulin 2.2 g/dL (1.6-3.3); Glucose 89 mg/dL (70-110); Potassium 4.3 mmol/L (3.5-5.5); Sodium 137 mmol/L (135-145); Total Bilirubin 0.3 mg/dL (0.3-1.2); Total Protein 6.7 g/dL (6.2-8.2)
== END | disposition home or self-care (01) ==
LOC: LABPAT 14:57
PROVIDERS: ATTEND Family Medicine
DX: Z01.812 Encounter for preprocedural laboratory examination (principal)
CPT/HCPCS: 80053; 82306; 83036; 84443; 85025; 85610; 85730

== ENCOUNTER → 2025-01-15 | Outpatient (CLI) | payer MEDICARE, OTHER | END | disposition home or self-care (01) | LOC: LABPAT 15:17 | PROVIDERS: ATTEND Orthopaedic Surgery | DX: Z01.812 Encounter for preprocedural laboratory examination (principal); M47.26 Other spondylosis with radiculopathy, lumbar region; Z22.322 Carrier or suspected carrier of Methicillin resistant Staphylococcus aureus | CPT/HCPCS: 86850; 86900; 86901; 87070 ==

== ENCOUNTER 2025-01-22 06:00 | Inpatient (IN) | payer MEDICARE, OTHER ==
[2025-01-16 09:29] VITALS: BMI 26.4
[~2025-01-22 06:00] MED LIST changes: +ACETAMINOPHEN TAB 500 MG TAB PO PRN; +GABAPENTIN 300 MG CAP PO PRN; -PROPOFOL 10 MG/ML 20 ML VIAL IV ONE; +TRANEXAMIC 1,000 MG/100ML-NACL 1,000 MG in SALINE 1 100ML.BAG IVPB PRN
[2025-01-22] MEDS: IV FLUID CONTINUATION 1,000 ML IV ONE ×6 (06:22→13:50)
--- NOTE | 2025-01-22 06:41 | P.HPOR ---
History of Present Illness H&P Date: 01/15/25 .D:Date: 01/15/25 : 01:53pm .T:Title: *ASC Spine H&P with Surgical Procedure Risk Review CLINICAL SUMMARY: Ms. Case is a 73-year-old female who presents for follow-up evaluation of chronic lumbar pain with radicular symptoms. Patient reports pain severity of 9/10 with radiation down bilateral lower extremities to feet, significantly limiting her ability to ambulate beyond 0.25 miles. Patient has undergone previous lumbar surgeries by Dr. Ramos with initial improvement, but symptoms have since returned to pre-surgical severity. Conservative management including multiple injections, physical therapy, and current medication regimen ([place] and Aspirin) has provided minimal relief. Imaging studies reveal post-surgical changes at L4-L5 with adjacent segment disease at L3-4 and L5-S1, demonstrating severe stenosis and instability. Physical examination reveals decreased motor strength in lower extremities (3-4/5), positive straight leg raise, and limited ROM. Given failure of conservative management and progressive symptoms, patient has been recommended for revision L3-S1 decompression and fusion. HISTORY: Roslyn Case is a 74 year old female presenting for evaluation of sudden onset of *low back pain, progressive as well as LE weakness, pain and neurogenic claudication like sx. . It was my pleasure to have seen and examined Ms. Case. In our visit today we have had a chance to go over subjective complaints, physical examination findings and treatments, including the natural course history without intervention and various interventional options. The imaging demonstrates * . XRay Lumbar Multiview (AP, Lateral, Flexion, Extension) with AP pelvis; 5 views taken at [facility] on 04/27/23: Previous surgical hardware is present L4-L5 with disc prosthesis and screws and enma on the right lateral and 1 screw present on the lateral left. Hardware is intact, no migration. Moderate spondylotic and degenerative changes with preserved alignment. Mutlilevel diminished disc height. Grade 1 retrolithesis L5 onto S1. Adjacent segment disease present at L3-L5. No acute osseous abnormalites. Pelvis: Multiple screws present in bilateral SI joints. otherwise, unremarkable. CT Date: 05/16/24 Location: [facility] Region: LUMBAR Contrast: N IMAGES ARE REVIEWED WITH THE PATIENT IN OFFICE AND DEMONSTRATE THE FOLLOWING: FINDINGS: POST SURGICAL FINDINGS NOTED RROM L4-S1 WITH SEVERE ASD AT L3-4 WITH VACUUM DISC PHENOM, RETROLISTHESIS, INSTABILIYT AND FACET ARTHROSIS THAT IS SEVERE. ALL OF THIS CONTRIBUTRES TO MODERATE TO SEVERE STENOSIS AT L3-4 WITH COLLAPSE, SPONDYLSOSIS. NO FRACTURES NOTED. NO LESIONS. MRI: MRI /09/2023 of Lumbar Spine completed at [facility]:Post surgical changes noted from L4-5 and b/l SIJ. ASD at L3-4 and L5-S1 with spondylotic collapse, disc collapse, facet arthropathy and hypertrophy as well as moderate stenois s central and foraminal b/l. No fracture. No lesions. New MRI is reviewed and demonstrates similar findings with 30% progression in the collapse, stenosis and spondylosis compared to MRI in 2022. This represents a significant change for the patient and correlates with her sx. On physical exam, Ms. Case demonstrates * . Low back pain with motion, Neurogenic claudication, progressive neurological changes; continued LE weakness 4/5 all LE b/l. No clonus, babinski or hoffmans at this time. She has +SLR b/l however and tensioning signs related to her ASD and stenosis. I explained to the patient that as her condition progresses it could cause * Continued and progressive changes and debility . At this time, based on the patients imaging and physical exam, I recommend surgery in the form or a: * Revision L3-S1 posterolateral and interbody fusion . I discussed the risk and benefits of this procedure at length with Ms. Case. The patient spouse agreed to consider pursuing the procedure mentioned above. Plan: 1. *REVISION L3-S1 OR PELVIS POSTEROLATERAL AND INTERBODY FUSION 2. * SHE HAS BEEN CLEARED BY PCP AND ALL INTERESTED PARTIES 3. * SHE HAS REVIEWED THE surgical risks and benefits as well as an educational packet on the proposed surgical procedure. Risks: All surgical procedures come with inherent risks, including those related to positioning, anesthesia, intraoperative findings, and postoperative complications. It is important to understand that surgery does not come with any guarantee of a successful outcome as complications and adverse events are always possible. The patient was given a handout in office today discussing the surgical procedure and risks associated with the intervention, both of which were discussed with the patient. These risks include but are not limited to the following: ? Experiencing same, different or even worse symptoms in back, neck, arms, or legs compared to before surgery. ? Requiring further surgery or other forms of treatment presently or at some time in the future at same or other levels of the intended spine surgery. ? On an extreme but fortunately relatively rare basis severe complication such as blindness, stroke, heart attack, temporary and/or permanent nerve injury, paralysis, coma, or may occur, sometimes without known explanation. ? Surgical complications may include but are not limited to risk of infection, fluid accumulation in the surgical dissection site, including a seroma or hematoma, that requires additional surgery, wound drainage, bleeding, new numbness or weakness, vision changes/loss, spinal fluid leakage, non-healing and/or infected incision, headaches, difficulty or inability to swallow, hoarseness, hemopneumothorax, pneumothorax, impotence, retrograde ejaculation, vaginal dryness; injury to nerves, spinal cord, blood vessels, lymphatics or other vital organs (i.e., bowel injury, injury to the great vessels); heterotopic bone formation; complications related to the hardware such as screws, rods, cages including misplaced hardware, device failure, instrumentation at the wrong spine level, hardware fracture/breakage, or hardware loosening; vertebral failure of the spinal column above or below the newly placed hardware; retained surgical instrumentations or devices and the need for further surgery. ? Medical risks of the planned spine surgery include but are not limited to generalized Infections to the whole body or local areas outside of the surgical site (sepsis), heart attack, bleeding, anaphylaxis, meningitis, seizure, epilepsy, hearing loss, burn [place], laceration of the head or other areas of the body, bruising, hypersensitivity of the skin, bladder over distension; allergic reaction; shoulder injury related to positioning; fat, blood and air clots to other areas of the body like heart, lungs, brain; failure of internal organs such as lungs, kidneys, liver and excessive bleeding. If blood transfusions are necessary, note that transfusions may cause intolerance reactions such as anaphylaxis or other complex reactions. Despite best efforts, the results of spine surgery might not heal in terms of bone, soft tissues such as skin, fascia, ligaments, and joints. Additionally, in order to achieve best possible results, spine surgery may be carried out beyond the initially planned levels and involve decompression, fusion including insertion of hardware at levels other than the original intended area of surgical interest change some portions of the procedure in order to ensure the best possible outcomes. With spine surgery and spinal fusion, there are different off label uses of instrumentation (devices, implants and hardware) as well as biological substances (bone morphogenic proteins, demineralized bone matrix) as well as using extra bone from allograft sources (i.e. cadaver bone) or autograft (iliac crest bone, ribs, or the spine itself). The patient has been given information about these practices and their inherent risks and benefits. Steven Billyon Physician Assistants are medically trained surgical providers who function in the outpatient, inpatient, and operating room setting under the direct supervision of the attending surgeon.They assist in the operating room with direct supervision of the attending surgeons. The patient has had a chance to review all the listed information, has been given print outs detailing this information, and has had all his/her questions answered to their satisfaction. It was my pleasure to have seen and examined Ms. Case. In our visit today we have had a chance to go over my understanding of our patient's current condition, the natural course history without intervention and various interventional options. Questions were invited and answered, and the patient wishes to proceed as outlined above. I have seen and examined the patient for 25 minutes and we have spent more than 50% of the time in repeat and detailed c ounseling about the patient's condition, its natural course history with out and as much as can be predicted with surgery and re-review of various surgical treatment options. In conclusion,Ms. Case and her spouse/partner requested we proceed with the above suggested surgery and are willing to accept risks and limitations of the suggested surgery as nature of the disease process and our best attempts at treatment for the condition. Thank you again for allowing us to be part of your patient's care. Please don't hesitate to contact me if you have any further questions. Signed and authenticated by: Sinan Vidal [facility] [address] [id number] Past Medical History Past Medical History: Hypertension, Osteoarthritis (OA) Additional Past Medical History / Comment(s): Diverticulitis, back problems, allergies, insomnia, bone spur in left shoulder and left foot. History of Any Multi-Drug Resistant Organisms: None Reported Past Surgical History: Back Surgery, Section, Hysterectomy, Joint Replacement, Orthopedic Surgery, Tonsillectomy, Tubal Ligation Additional Past Surgical History / Comment(s): Bilateral carpal tunnel surgery, left breast benign biopsy X3, left knee arthroscopy, right arthroscopic rotator cuff repair, right shoulder replacement, bilateral cataracts, pain procedures, back surgery X2, section X2, EGD. Past Anesthesia/Blood Transfusion Reactions: Postoperative Nausea & Vomiting (PONV) Additional Past Anesthesia/Blood Transfusion Reaction / Comment(s): PONV after hysterectomy. "sister slow to wake up." Smoking Status: Never smoker - Past Family History Sister(s) Family Medical History: Cancer Additional Family Medical History / Comment(s): Multiple myeloma. from heart problem - amyloidosis. Medications and Allergies Home Medications Medication Instructions Recorded Confirmed Type Ipratropium Kohler [Ipratropium 2 sprays PO DAILY PRN 07/12/17 01/22/25 History Kohler 0.03%] Multivitamins, Thera [Multivitamin 1 tab PO DAILY 07/12/17 01/22/25 History (formulary)] lisinopriL [Zestril] 20 mg PO QAM 07/12/17 01/22/25 History Calcium Carbonate/Vitamin D3 1 cap PO DAILY 07/13/23 01/22/25 History [Calcium 600 mg-D3 10 Mcg (400 Iu)] Eszopiclone [Lunesta] 2 mg PO HS 07/13/23 01/22/25 History Ibuprofen 800 mg PO TID PRN 12/10/23 01/22/25 History Aspirin [[place] Aspirin EC] 81 mg PO DAILY 07/27/24 01/22/25 History Ferrous Sulfate [Iron (65 MG 325 mg PO DAILY 07/27/24 01/22/25 History Elemental)] Mv-Min/FA/Vit K/Lutein/Zeaxant 1 cap PO BID 07/27/24 01/22/25 History [Preservision Areds 2 Plus Mv] Naproxen Sodium [Aleve] 220 mg PO BID PRN 07/27/24 01/22/25 History Nortriptyline [Pamelor] 50 mg PO HS 07/27/24 01/22/25 History Acetaminophen Tab [Tylenol] 650 mg PO Q6HR PRN tab 07/31/24 01/22/25 Rx Gabapentin [Neurontin] 300 mg PO QID PRN 09/19/24 01/22/25 History HYDROcodone/APAP 5-325MG [[place] 1 tab PO Q12H PRN 01/16/25 01/22/25 History 5-325] Melatonin 3 mg PO HS 01/16/25 01/22/25 History Menopause Energy Support 1 tab PO DAILY 01/16/25 01/22/25 History Menopuase Sleep Support 1 tab PO HS 01/16/25 01/22/25 History Metoprolol Succinate (ER) [Toprol 25 mg PO HS 01/22/25 01/22/25 History Xl] Allergies Allergy/AdvReac Type Severity Reaction Status Date / Time amoxicillin Allergy Rash/Hives Verified 01/22/25 06:18 codeine Allergy agitated,re Verified 01/22/25 06:18 stless prochlorperazine Allergy agitated,re Verified 01/22/25 06:18 [From Compazine] stless Physical Examination Osteopathic Statement: *. No significant issues noted on an osteopathic structural exam other than those noted in the History and Physical/Consult.
[2025-01-22] MEDS: LACTATED RINGERS 1,000 ML IV SCH ×2 (06:47→23:20)
[2025-01-22] MEDS: ONDANSETRON 4 MG/2 ML VIAL IVP PRN (06:52)
[2025-01-22] MEDS: MIDAZOLAM 2 MG/2 ML VIAL IV ONE (07:13)
[2025-01-22] MEDS ORDERED: LIDOCAINE 1% INJ 10MG/ML (20 ML MDV) ONE (07:23)
[2025-01-22] MEDS ORDERED: NEOSTIGMINE 1 MG/ML 10 ML VIAL ONE (07:23)
[2025-01-22] MEDS ORDERED: ePHEDrine 50 MG/ML 1 ML VIAL ONE (07:23)
[2025-01-22] MEDS ORDERED: SUCCINYLCHOLINE CHLORIDE 200 MG/10 ML VIAL IV ONE (07:23)
[2025-01-22] MEDS ORDERED: KETAMINE HCL IN 0.9 % NACL 50 MG/5 ML SYRINGE ONE (07:23)
[2025-01-22] MEDS ORDERED: fentaNYL (PF) 50 MCG/ML 2 ML AMP ONE (07:23)
[2025-01-22] MEDS ORDERED: PROPOFOL 10 MG/ML 20 ML VIAL IV ONE (07:23)
[2025-01-22] MEDS ORDERED: ROCURONIUM 10 MG/ML (5 ML VIAL) IV ONE (07:23)
[2025-01-22] MEDS ORDERED: GLYCOPYRROLATE 0.2 MG/ML 2 ML VIAL ONE (07:23)
[2025-01-22] MEDS ORDERED: TRANEXAMIC 1,000 MG/100ML-NACL PREMIX BAG ONE (07:23)
[2025-01-22] MEDS ORDERED: PHENYLEPHRINE 10 MG/ML VIAL ONE (07:23)
[2025-01-22] MEDS ORDERED: MIDAZOLAM 2 MG/2 ML VIAL ONE (07:23)
[2025-01-22] MEDS: ceFAZolin 2 GM in DEXTROSE 5% IN WATER 50 ML IVPB PRN (07:30)
--- NOTE | 2025-01-22 08:02 | P.ANPRN ---
Procedure Note - Anesthesia - Invasive Line Right Arterial Line Time Out Performed: Yes Date of Procedure: 01/22/25 Time of Procedure: 07:10 Location of Patient: PreOp Preparation: Sterile Prep Arterial Line Location: Briachial Narrative: Invasive line placement per sterile protocol utilized.Initially attempted right radial, too narrow artery.
[2025-01-22] MEDS: LACTATED RINGERS 1,000 ML IV ONE ×2 (08:15→09:47)
[2025-01-22] MEDS: THROMBIN (BOVINE) 5,000 UNIT VIAL TOPICAL ONE (08:30)
[2025-01-22] MEDS: ceFAZolin 3,000 MG in SODIUM CHLORIDE 0.9% IRRIGATIO 3,000 ML IRRIGATION ONE (09:07)
[2025-01-22] MEDS: GENTAMICIN 80 MG in SODIUM CHLORIDE 0.9% IRRIGATIO 3,000 ML IRRIGATION ONE (09:07)
[2025-01-22] MEDS: VANCOMYCIN 1,000 MG VIAL MISCELLANE ONE (10:43)
--- NOTE | 2025-01-22 11:12 | XR ---
EXAMINATION TYPE: XR lumbar spine 2 or 3V, FL guidance operating room DATE OF EXAM: 01/22/2025 FLUOROSCOPY L3-S1 fusion DAP: 691.46 FL TIME: [address] EASTON No images are provided [facility], Workstation: [id number], 01/22/2025 11:09 AM
--- NOTE | 2025-01-22 11:27 | P.OP ---
Date of Procedure: 01/22/25 Preoperative Diagnosis: 1. 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 L5-S1 ADJACENT SEGMENT DISEASE WITH COLLAPSE AND STENOSIS S/P L4-5 FUSION 3. LUMBAR STENOSIS WITH RADICULOPATHY 4. LE WEAKNESS 5. LE PARESTHESIAS 6. LOW BACK PAIN Postoperative Diagnosis: 1. 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 L5-S1 ADJACENT SEGMENT DISEASE WITH COLLAPSE AND STENOSIS S/P L4-5 FUSION 3. LUMBAR STENOSIS WITH RADICULOPATHY 4. LE WEAKNESS 5. LE PARESTHESIAS 6. LOW BACK PAIN Procedure(s) Performed: 1. L5-S1 INTRADISCAL OSTEOTOMY, 3 COLUMN FOR DEFORMITY CORRECTION 2. L3-4 POSTEROLATERAL AND INTERBODY FUSION 3. L5-S1 POSTEROLATERAL AND INTERBODY FUSION 4. L3-S1 SEGMENTAL INSTRUMENTATION 5. L3-4, L4-5 AND L5-S1 BILATERAL LAMINECTOMY, COMPLETE FACETECTOMY AND FORAMINOTOMY FOR COMPLETE NEURAL DECOMPESSION, DEFORMITY CORRECTION AND CAGE PLACEMENT 6. PLACEMENT OF BIOMECHANICAL DEVICE, CAGE x2 L3-4 AND L5-S1 7. REMOVAL OF HARDWARE L4-5 8. EXPLORATION OF FUSION L4-5 9. REPAIR OF DURAL EROSION L4-5 PRIMARY REQUIRING LAMINECTOMY 10. USE OF [email or web address] NAVIGATION FOR SCREW PLACEMENT USE OF IONM ALL SCREWS TESTING > 18 mA Implants: KAYLEE EVEREST RODS AND SCREWS GLOBUS SABLE CAGE MED AND SHORT 9-12 MM 10 MM CONTOUR, ARTHROCELL, ALLOCELL, AUTOGRAFT, DBM Anesthesia: GETA Surgeon: Sinan Swartz Utility Worker [employer]1: Reymundo Cruz (was present and assisted with all aspects of the case from position to dressing placement) Estimated Blood Loss (ml): 300 IV fluids (ml): 1,700 Urine output (ml): 250 Pathology: none sent Condition: stable Disposition: PACU Indications for Procedure: Ms. Case is a 73-year-old female who presents for follow-up evaluation of chronic lumbar pain with radicular symptoms. Patient reports pain severity of 9/10 with radiation down bilateral lower extremities to feet, significantly limiting her ability to ambulate beyond 0.25 miles. Patient has undergone previous lumbar surgeries by Dr. Ramos with initial improvement, but symptoms have since returned to pre-surgical severity. Conservative management including multiple injections, physical therapy, and current medication regimen (Tropic and Aspirin) has provided minimal relief. Imaging studies reveal post-surgical changes at L4-L5 with adjacent segment disease at L3-4 and L5-S1, demonstrating severe stenosis and instability. Physical examination reveals decreased motor strength in lower extremities (3-4/5), positive straight leg raise, and limited ROM. Given failure of conservative management and progressive symptoms, patient has been recommended for revision L3-S1 decompression and fusion. Description of Procedure: L3-S1 open Decompression and fusion (sharad) Revision with LIZABETH The patient was seen and examined in the preoperative area. All preoperative protocols were followed. Informed consent was obtained, risks and benefits of the procedure were discussed at length. Risks including bleeding infection damage to the surrounding tissue and risk of reoperation were discussed with the patient. Risk of anesthesia up to and including was discussed with the patient. These are outlined in the risk review. They were willing to accept these risks and all the risks of surgery. The patient was given a weight-based dose of antibiotics in the form of 2 g Ancef. The patient was seen and evaluated by the anesthesia team who deemed them fit for surgery. The site was marked, the patient was willing to proceed with the procedure. The patient was transferred to the operative suite by the Department of anesthesia. They were then drifted off to sleep by the department anesthesia and GETA was performed. The patient tolerated this well. Ro catheter was placed by nursing staff, a-traumatically. Once confirmation of lines and ventilation the patient was transferred to a prone Stefan table very carefully. All bony prominences including wrists, elbows, axilla, chest, hips, and thighs, and feet were padded very well. Special attention was paid to the genitalia, and these were padded accordingly. SCDs were placed on bilateral lower extremities and were connected. Arms were well padded and placed on arm boards up and out in the 90/90 position. Once in position, again we confirmed good ventilation capabilities and that lines were running appropriately. The patients Lumbar spine was then exposed. 1010s were placed outlining the incision site. Standard alcohol was used to clean the incision site and allowed to dry. C-arm was used to needle localize the pedicles at L4-S1 and bio-mae the patient and confirm level for incision which was marked with a skin marker. Operative briefing was performed with all teams and everyone in agreement to proceed. The patient was then prepped and draped in a normal sterile fashion. Timeout was then performed, and all parties agreed with the procedure to be performed. Midline skin incision was made over the previously bio-marked area and dissection taken down over the SP of L3-S1. L3-S1 was taken out over facet joints and TPs and a penfield 4 used to mae the L4 pedicle. Lateral image used to confirm levels. Old hardware was identified and set screws and rods removed. Screws were tested and the b/l L4 screws were loose. All previous hardware was then removed posteriorly. Once this was accomplished, screws were proceeded to be placed b/l at pedicles from L4-S1 using Chain Navigation. An SP clamp was used, 3D C arm spin obtained and confirmed to be accurate. Once this was confirmed screws were placed using a navigated adri, navigated awl-tap and navigated test car driver. Once screws were placed they were confirmed to be in good position using AP and Lateral fluoroscopy. The wound was then irrigated. Screws were tested and all tested above 17 mA. We then proceeded to decompression and cage placement. Starting at L5-S1, bilateral laminectomy, complete facetectomy and foraminotomies were performed using high speed bur, Kerrison rongeur. There was exuberant bone formation throughout the entire lumbar spine, making the case very meticulous and difficult. Severe stenosis with dural scarring was noted at L3-S1. There was significant scar tissue surrounding these joints as well as the dura. Once exposed the neural elements were protected and an intradiscal osteotomy, 3 column, was performed for deformity correction at L5-S1. Osteotome was used to make osteotomy in L5 and S1 and for complete disc removal. A box osteotome was then used to widen this bilaterally. This was passed into the anterior 1/3 of L5. This allowed for loosening of this level and correction. A cage was then selected based on shaving and trials. Bleeding endplates were encountered and cartilage removed. Autograft, allograft were then placed anterior to the cage. The cage was then impacted into place under lateral imaging while protecting neural elements. The cage was then expanded into position and showed good lift and correction. Adventist of lordosis and height achieved. Meticulous hemostasis then performed. Cage was backfilled with DBM and the area irrigated. During the decopmression from L3-5 there was noted a dural erosion on the right side at L4-5 due to scarring and bony formation. This was primarily fixed with 6-0 prolene. A valsalva was done after and there was no leak. Attention was then turned to interbody fusion at L3-4 since there was already a cage at L4-5. Bilateral laminectomy, complete facetectomy and foraminotomy performed at L4-5 using high speed adri and Kerrison rongeur. The ligamentum was removed and the dural sac decompressed. Exiting and traversing roots visualized and decompressed. Neural elements were then protected, and disc spac e accessed with an osteotome. Sequential shaving then done under lateral imaging and complete discectomy performed using steffany, pituitary and curette. Once good bleeding endplates accomplished and good height judaism with trials, a combination of autograft, allograft and synthetic placed anterior in the disc space. The cage was then selected and impacted into place under lateral imaging. The cage was then expanded restoring height, lordosis and alignment. The cage was backfilled with bone graft through a funnel. The filter tip catcher was removed and the area inspected. Good cage placement, stable cage and no injuries. Area was irrigated copiously, and meticulous hemostasis achieved. The wound and disc spaces were irrigated and meticulous hemostasis achieved. Laminectomy was completed at L4-5 as well using high speed adri and kerrison rongeur for complete decompression from L3-S1 Rods were then sized and selected and placed into S1 screws b/l. Set screws locked these in place and then sequentially reduced into L4 and L5 b/l for reduction of listhesis. This was accomplished. Set screws were then all placed and final tightened. A cross link was selected and placed and final tightened. TPs were then decorticated with a high speed adri. The wound was irrigated with 3L acne irrigation, 3L gentamicin irrigation and 3L NSS. Surgical was placed over the dura. Autograft and MagnatOs then placed in the posterolateral gutters and impacted into place. Tisseal was placed over the dural as well as surgicel. Deep drain placed and secured to the skin. Final images confirmed good placement of hardware and good reduction of listhesis as well as judaism of height and lordosis. Fascia was then closed with #1 PDS. Deep subq closed with 0 Vicryl. Superficial subq closed with 2-0 Vicryl and skin with raymond. Wound edges approximated very well. Wound was then cleaned with alcohol and dried. Wounds dressed with Optifoam dressings. The patient was then transferred off the table back to their hospital bed a- traumatically. Drains continued to hold suction. They were extubated by the department of anesthesia. They were then transferred to PACU in stable condition having tolerated the procedure with no complications.
[2025-01-22] MEDS ORDERED: SENNOSIDES-DOCUSATE SODIUM 1 EACH TAB PO PRN (11:34)
[2025-01-22] MEDS ORDERED: ONDANSETRON 4 MG/2 ML VIAL IVP PRN (11:34)
[2025-01-22] MEDS ORDERED: MAGNESIUM HYDROXIDE 2,400 MG/30 ML CUP PO PRN (11:34)
[2025-01-22] MEDS ORDERED: CYCLOBENZAPRINE 5 MG TAB PO PRN (11:34)
[2025-01-22] MEDS ORDERED: HYDROcodone/APAP 5-325MG 1 EACH TAB PO PRN (11:34)
[2025-01-22] MEDS: PHENYLEPHRINE-0.9% NACL SYG 1,000 MCG/10 ML SYRINGE IVP ONE (11:55)
[2025-01-22] MEDS: ALBUMIN HUMAN 5% 250 ML in EMPTY BAG 1 BAG IVPB STA (12:08)
[2025-01-22 12:38] LABS: Glucose,Whole Blood 84 mg/dL (70-110)
[2025-01-22] MEDS: fentaNYL (PF) 50 MCG/ML 2 ML AMP IV PRN (12:54)
[2025-01-22] MEDS: HYDROmorphone 0.5 MG/0.5 ML SYRINGE IVP PRN (13:27)
[2025-01-22] MEDS: PHENYLEPHRINE 40 MG in SODIUM CHLORIDE 0.9% 250 ML IV SCH (18:19)
[2025-01-22] MEDS: ACETAMINOPHEN TAB 325 MG TAB PO SCH (18:23)
[2025-01-22] MEDS: HYDROcodone/APAP 10-325MG 1 EACH TAB PO PRN (18:26)
[2025-01-22] MEDS: GABAPENTIN 300 MG CAP PO SCH (18:27)
[2025-01-22] MEDS: MELATONIN 3 MG TABLET PO SCH (23:13)
[2025-01-22] MEDS: METOPROLOL SUCCINATE (ER) 25 MG TAB.ER.24H PO SCH (23:13)
[2025-01-22] MEDS: NORTRIPTYLINE 25 MG CAP PO SCH (23:13)
[2025-01-23] MEDS: ZOLPIDEM 5 MG TAB PO SCH (00:57)
[2025-01-23] MEDS: HYDROmorphone 1 MG/ML 1 ML SYRINGE IVP PRN (03:13)
[2025-01-23 08:16] LABS: Basophils # (A) 0.02 X 10*3/uL (0.00-0.10); Basophils % (A) 0.3 %; Eosinophils # (A) 0.07 X 10*3/uL (0.04-0.35); Eosinophils % (A) 0.9 %; HCT 25.7 % (37.2-46.3); HGB 8.6 g/dL (12.0-15.0); Lymphocytes # (A) 1.21 X 10*3/uL (0.90-5.00); Lymphocytes % (A) 15.8 %; MCH 31.4 pg (27.0-32.0); MCHC 33.5 g/dL (32.0-37.0); MCV 93.8 FL (80.0-97.0); Mean Platelet Volume 10.1 FL (9.5-12.2); Monocytes # (A) 0.52 X 10*3/uL (0.20-1.00); Monocytes % (A) 6.8 %; NRBC Per 100 WBC 0 X 10*3/uL (0.00-0.01); Neutrophils % (A) 75.5 %; Platelet Count 212 X 10*3/uL (140-440); RBC 2.74 X 10*6/uL (4.10-5.20); RDW 13.2 % (11.5-14.5); WBC 7.67 X 10*3/uL (4.50-10.00)
[2025-01-23] MEDS: MULTIVITAMINS, THERA 1 EACH TAB PO SCH (08:25)
--- NOTE | 2025-01-23 08:30 | CT ---
EXAMINATION TYPE: CT lumbar spine wo con DATE OF EXAM: 01/23/2025 12:02 AM COMPARISON: 05/16/2024. CLINICAL INDICATION: Female, 74 years old with history of s/p revision L3-S1 decompr fusion; PHH, jazmin n in lt leg radiating from back TECHNIQUE: CT of the lumbar spine without IV contrast. Coronal and sagittal reconstructions performed . CT DLP: 754.7 mGycm, Automated exposure control for dose reduction was used. FINDINGS: Prominent patchy bibasilar opacities now present. Left-sided colonic diverticulosis. Gallbladder bord benitez distended at 3.7 cm wide. The patient's previous L4-L5 posterior and interbody fusion has been revised now with placement of L3 -S1 posterior and interbody fusion. Previous pinning across the SI joints. Wide laminectomies. Soft t issue swelling and scattered air relating to recent operation. Posterior midline skin raymond and yamilet gical drain present. Now fixed grade 1 anterolisthesis L3-L4 and L4-L5. The left L5 transpedicular screw tip reaches the left anterior vertebral body cortex projecting along the medial margin of the left psoas major, reference axial image 64. The bilateral S1 transpedicular screws both have their distal aspects extending beyond the bone and abuts the psoas major muscles, l eft more so than right. Refer to axial images 75 and 77. IMPRESSION: 1. Revision lumbar surgery now with L3-S1 posterior and interbody lumbar fusion with wide laminectomi es. Recent postoperative changes along with surgical drain in place. 2. Note the bilateral S1 transpedicular screw tips both project beyond the bone into the paraspinal s oft tissues and abut the psoas major muscles, left more so than right. Refer to axial images 75 and 7 7. 3. The left L5 transpedicular screw tip also extends beyond the bone, located along the medial margin of the left psoas major. Refer to axial image 64. 4. New prominent posterior basilar opacities, probably postoperative atelectasis. [facility], , 01/23/2025 8:28 AM
--- NOTE | 2025-01-23 09:07 | P.PN ---
Subjective Progress Note Date: 01/23/25 Principal diagnosis: 1. 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 L5-S1 ADJACENT SEGMENT DISEASE WITH COLLAPSE AND STENOSIS S/P L4-5 FUSION 3. LUMBAR STENOSIS WITH RADICULOPATHY 4. LE WEAKNESS 5. LE PARESTHESIAS 6. LOW BACK PAIN Patient was seen at bedside this morning lying in the semi-, position on 4 S. with dressing in place over lumbar spine Ro in place and Hemovac drain in place to half suction. Patient says she did have a minor headache after surgery yesterday in recovery however it quickly resolved. Patient states no headaches this morning. She says she has not been up out of bed since surgery but is looking forward to working with therapy later this morning. Patient says she has not had a bowel movement yet. Patient says she is in pain but it is controlled with oral medication. Patient did seem somewhat groggy during the encounter at bedside. Patient denies any other issues at this time. Objective - Vital Signs Vital signs: Vital Signs Temp 99.1 F 01/23/25 07:38 Pulse 80 01/23/25 07:38 Resp 18 01/23/25 07:38 BP 114/68 01/23/25 07:38 Pulse Ox 93 L 01/23/25 07:38 FiO2 Intake & Output 01/22/25 01/23/25 01/23/25 18:59 06:59 18:59 Intake Total 4702 Output Total 700 700 75 Balance 4002 -700 -75 Weight 54.7 kg Intake: IV 4702 Output: Drainage 100 75 Back 100 75 Urine 400 600 Estimated Blood Loss 300 Other: Voiding Method Indwelling Catheter - Exam Hemovac drain is in place with moderate serosanguineous output overnight. Keep to half suction at this time. Monitor and record. Postop surgical dressing a ppears to be clean, dry, intact over the lumbar spine exam. Plan for dressing change tomorrow. Ro in place. Sensation is equal, symmetric, bilaterally intact throughout the upper and lower extremities on exam. Moderate tenderness to palpation over lumbar spine on exam near incision. Nontender on rest of exam. Patient does have some limited range of motion in bilateral hips and knees secondary referred pain to the low back while resting in bed. Patient has good range of motion throughout bilateral upper extremities on exam. 4-/5 in all major motor groups in bilateral lower extremities. 4+/5 in all major motor groups in bilateral upper extremities. Neurovascular status intact. Radial pulse intact, 2+ bilaterally. Cap refill under 3 seconds in digits of upper extremities. Negative Homans bilaterally. Negative clonus bilaterally. Negative clancy bilaterally. - Labs CBC & Chem 7: 01/23/25 04:06 Labs: Abnormal Lab Results - Last 24 Hours (Table) 01/23/25 Range/Units 04:06 RBC 2.74 L (4.10-5.20) X 10*6/uL Hgb 8.6 L (12.0-15.0) g/dL Hct 25.7 L (37.2-46.3) % Immature Gran # 0.05 H (0.00-0.04) X 10*3/uL Assessment and Plan Assessment: 1. 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 L5-S1 ADJACENT SEGMENT DISEASE WITH COLLAPSE AND STENOSIS S/P L4-5 FUSION 3. LUMBAR STENOSIS WITH RADICULOPATHY 4. LE WEAKNESS 5. LE PARESTHESIAS 6. LOW BACK PAIN Postop day 1 status post revision L3 to S1 decompression and fusion Plan: 1. ADJACENT SEGMENT DISEASE WITH COLLAPSE AND STENOSIS L3-4 S/P L4-5 FUSION; L5- S1 ADJACENT SEGMENT DISEASE WITH COLLAPSE AND STENOSIS S/P L4-5 FUSION; LUMBAR STENOSIS WITH RADICULOPATHY; LE WEAKNESS; LE PARESTHESIAS; LOW BACK PAIN - surgery performed yesterday, 01/22/25revision L3-S1 decompression and fusion. Patient stable at bedside this morning with dressing in place over lumbar spine. Drain in place with moderate serosanguineous output overnight. Keep to half suction for now. Plan for dressing change tomorrow. Work with PT/OT daily. Maintain Ro for now. Weightbearing as tolerated with walker. We will continue to follow patient during her stay in hospital. Discharge planning pending. 2. Appreciate medical management 3. Pain management -[place]; gabapentin; Flexeril 4. DVT prophylaxis -mechanical 5. GI prophylaxis -senna; milk of mag 6. PT/OT -weightbearing as tolerated with walker 7. Encourage incentive spirometer use 8. Discharge planning - pending Time with Patient: Less than 30
[2025-01-23 09:21] LABS: BUN/Creat Ratio 12.57 Ratio (12.00-20.00); Blood Urea Nitrogen 8.8 mg/dL (9.0-27.0); Calcium 7.7 mg/dL (8.7-10.3); Carbon Dioxide 24.8 mmol/L (21.6-31.8); Chloride 105 mmol/L (96-109); Glucose 102 mg/dL (70-110); Potassium 4.2 mmol/L (3.5-5.5); Sodium 137 mmol/L (135-145)
--- NOTE | 2025-01-23 11:37 | XR ---
EXAMINATION TYPE: XR chest 1V portable DATE OF EXAM: 01/23/2025 11:05 AM COMPARISON: 07/28/2024 CLINICAL INDICATION: Female, 74 years old with history of Hypoxia, , FINDINGS: Partially visualized reverse right shoulder arthroplasty. Heart mildly enlarged. Low lung volumes wit h interstitial densities. No dank consolidation or pleural effusion. IMPRESSION: Mild cardiomegaly with interstitial opacities. Consider mild CHF with pulmonary vascular congestion. [facility], , 01/23/2025 11:34 AM
--- NOTE | 2025-01-23 23:11 | P.CONS ---
History of Present Illness - Reason for Consult Consult date: 01/23/25 Medical management - History of Present Illness This is a pleasant 74-year-old female with medical history significant for h ypertension, diverticulitis. 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 Patient is evaluated today postoperative day #1. White blood cell count of 7.67, hemoglobin 8.6, sodium of 137 potassium 4.2, BUN of 8.8 creatinine of 0.7. Patient is afebrile, heart rate is 80 normal sinus rhythm blood pressure 114/68 and currently 93% liters of oxygen via nasal cannula. Patient with no acute complaints. Currently sitting up in the chair and resting comfortably. Fatigue but easily arousable. REVIEW OF SYSTEMS: CONSTITUTIONAL: No fever, no malaise, no fatigue. H hypertension, osteoarthritis, diverticulitis, mild depression, alcoholism.EENT: No recent visual problems or hearing problems. Denied any sore throat. CARDIOVASCULAR: No chest pain, orthopnea, PND, no palpitations, no syncope. PULMONARY: No shortness of breath, no cough, no hemoptysis. GASTROINTESTINAL: No diarrhea, no nausea, no vomiting, no abdominal pain. NEUROLOGICAL: No headaches, no weakness, no numbness. HEMATOLOGICAL: Denies any bleeding or petechiae. GENITOURINARY: Denies any burning micturition, frequency, or urgency. MUSCULOSKELETAL/RHEUMATOLOGICAL: Denies any joint pain, swelling, or any muscle pain. ENDOCRINE: Denies any polyuria or polydipsia. The rest of the 14-point review of systems is negative. PHYSICAL EXAMINATION: GENERAL: The patient is alert and oriented x3, not in any acute distress. Well developed, well nourished. HEENT: Pupils are round and equally reacting to light. EOMI. No scleral icterus. No conjunctival pallor. Normocephalic, atraumatic. No pharyngeal erythema. No thyromegaly. CARDIOVASCULAR: S1 and S2 present. No murmurs, rubs, or gallops. PULMONARY: Chest is clear to auscultation, no wheezing or crackles. ABDOMEN: Soft, nontender, nondistended, normoactive bowel sounds. No palpable organomegaly. MUSCULOSKELETAL: No joint swelling or deformity. EXTREMITIES: No cyanosis, clubbing, or pedal edema. NEUROLOGICAL: Gross neurological examination did not reveal any focal deficits. SKIN: No rashes. Assessment revision L3-S1 decompression and fusion secondary to collapse and stenosis of L3-L4 SP L4-5 fusion Hypertension Diverticulitis Degenerative joint disease Hx of back surgery GI prophylaxis DVT prophylaxis as per primary Full Code Plan Resume home medications Continue bowel regimen while using narcotics for pain management Encourage incentive spirometer PT/OT consultation The impression and plan of care has been dictated by Stephanie Mendosa Nurse Practitioner as directed. Dr. Jayy MD I have performed a history and physical examination and medical decision making of this patient, discussed the same with the dictator, and agree with the dictators assessment and plan as written, documented as a scribe. Based on total visit time, I have performed more than 50% of this visit. Past Medical History Past Medical History: Hypertension, Osteoarthritis (OA) Additional Past Medical History / Comment(s): Diverticulitis, back problems, allergies, insomnia, bone spur in left shoulder and left foot. History of Any Multi-Drug Resistant Organisms: None Reported Past Surgical History: Back Surgery, Section, Hysterectomy, Joint Replacement, Orthopedic Surgery, Tonsillectomy, Tubal Ligation Additional Past Surgical History / Comment(s): Bilateral carpal tunnel surgery, left breast benign biopsy X3, left knee arthroscopy, right arthroscopic rotator cuff repair, right shoulder replacement, bilateral cataracts, pain procedures, back surgery X2, section X2, EGD. Past Anesthesia/Blood Transfusion Reactions: Postoperative Nausea & Vomiting (PONV) Additional Past Anesthesia/Blood Transfusion Reaction / Comm: PONV after hysterectomy. "sister slow to wake up." Past Psychological History: Depression Additional Psychological History / Comment(s): Mild depression intermittently. Smoking Status: Never smoker Past Alcohol Use History: Rare Additional Past Alcohol Use History / Comment(s): 1 drink every 5 years. Past Drug Use History: None Reported - Past Family History Sister(s) Family Medical History: Cancer Additional Family Medical History / Comment(s): Multiple myeloma. from heart problem - amyloidosis. Medications and Allergies Home Medications Medication Instructions Recorded Confirmed Type Ipratropium [place] [Ipratropium 2 sprays PO DAILY PRN 07/12/17 01/22/25 History [place] 0.03%] Multivitamins, Thera [Multivitamin 1 tab PO DAILY 07/12/17 01/22/25 History (formulary)] lisinopriL [Zestril] 20 mg PO QAM 07/12/17 01/22/25 History Calcium Carbonate/Vitamin D3 1 cap PO DAILY 07/13/23 01/22/25 History [Calcium 600 mg-D3 10 Mcg (400 Iu)] Eszopiclone [Lunesta] 3 mg PO HS 07/13/23 01/22/25 History Ibuprofen 800 mg PO TID PRN 12/10/23 01/22/25 History Aspirin [Coles Aspirin EC] 81 mg PO DAILY 07/27/24 01/22/25 History Ferrous Sulfate [Iron (65 MG 325 mg PO DAILY 07/27/24 01/22/25 History Elemental)] Mv-Min/FA/Vit K/Lutein/Zeaxant 1 cap PO BID 07/27/24 01/22/25 History [Preservision Areds 2 Plus Mv] Naproxen Sodium [Aleve] 220 mg PO BID PRN 07/27/24 01/22/25 History Nortriptyline [Pamelor] 50 mg PO HS 07/27/24 01/22/25 History Acetaminophen Tab [Tylenol] 650 mg PO Q6HR PRN tab 07/31/24 01/22/25 Rx Gabapentin [Neurontin] 300 mg PO QID PRN 09/19/24 01/22/25 History HYDROcodone/APAP 5-325MG [[place] 1 tab PO Q12H PRN 01/16/25 01/22/25 History 5-325] Melatonin 3 mg PO HS 01/16/25 01/22/25 History Menopause Energy Support 1 tab PO DAILY 01/16/25 01/22/25 History Menopuase Sleep Support 1 tab PO HS 01/16/25 01/22/25 History Metoprolol Succinate (ER) [Toprol 25 mg PO HS 01/22/25 01/22/25 History Xl] Allergies Allergy/AdvReac Type Severity Reaction Status Date / Time amoxicillin Allergy Rash/Hives Verified 01/22/25 06:18 codeine Allergy agitated,re Verified 01/22/25 06:18 stless prochlorperazine Allergy agitated,re Verified 01/22/25 06:18 [From Compazine] stless Physical Exam Vitals: Vital Signs Temp Pulse Pulse Resp BP BP BP 01/23/25 07:38 99.1 F 80 18 114/68 01/23/25 03:16 98.0 F 77 16 116/68 01/23/25 00:14 98.3 F 78 18 116/65 01/22/25 20:12 97.6 F 78 17 123/62 01/22/25 18:19 97.3 F L 72 18 134/75 01/22/25 17:30 72 16 115/67 01/22/25 17:00 64 15 125/66 01/22/25 16:15 65 14 124/64 01/22/25 15:15 73 20 112/61 01/22/25 14:30 75 14 107/54 01/22/25 14:05 68 15 104/54 137/78 01/22/25 13:45 71 12 104/59 131/57 01/22/25 13:15 73 12 96/62 140/73 01/22/25 13:00 74 13 102/57 137/67 01/22/25 12:45 74 22 95/47 128/56 01/22/25 12:30 75 13 99/53 114/52 01/22/25 12:15 74 20 97/52 111/51 01/22/25 12:00 72 17 97/50 01/22/25 11:52 78/49 01/22/25 11:45 63 17 61/34 01/22/25 11:38 96.9 F L 61 16 136/66 Pulse Ox 01/23/25 07:38 93 L 01/23/25 03:16 96 01/23/25 00:14 95 01/22/25 20:12 94 L 01/22/25 18:19 96 01/22/25 17:30 99 01/22/25 17:00 97 01/22/25 16:15 96 01/22/25 15:15 98 01/22/25 14:30 97 01/22/25 14:05 93 L 01/22/25 13:45 98 01/22/25 13:15 99 01/22/25 13:00 100 01/22/25 12:45 98 01/22/25 12:30 98 01/22/25 12:15 97 01/22/25 12:00 93 L 01/22/25 11:52 01/22/25 11:45 95 01/22/25 11:38 96 Intake and Output 01/22/25 01/23/25 01/23/25 22:59 06:59 14:59 Output Total 700 75 Balance -700 -75 Output: Drainage 100 75 Back 100 75 Urine 600 Other: Voiding Method Indwelling Catheter Indwelling Catheter Weight 54.7 kg Results CBC & Chem 7: 01/23/25 04:06 01/23/25 04:06 Labs: Abnormal Lab Results - Last 24 Hours (Table) 01/23/25 01/23/25 Range/Units 04:06 04:06 RBC 2.74 L (4.10-5.20) X 10*6/uL Hgb 8.6 L (12.0-15.0) g/dL Hct 25.7 L (37.2-46.3) % Immature Gran # 0.05 H (0.00-0.04) X 10*3/uL BUN 8.8 L (9.0-27.0) mg/dL Calcium 7.7 L (8.7-10.3) mg/dL Assessment and Plan Time with Patient: Less than 30
[2025-01-24] MEDS: HYDROcodone/APAP 7.5-325MG 1 EACH TAB PO PRN (08:19)
[2025-01-24] MEDS: SENNOSIDES-DOCUSATE SODIUM 1 EACH TAB PO SCH (08:23)
--- NOTE | 2025-01-24 13:26 | P.PN ---
Subjective Progress Note Date: 01/24/25 Principal diagnosis: 1. 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 L5-S1 ADJACENT SEGMENT DISEASE WITH COLLAPSE AND STENOSIS S/P L4-5 FUSION 3. LUMBAR STENOSIS WITH RADICULOPATHY 4. LE WEAKNESS 5. LE PARESTHESIAS 6. LOW BACK PAIN Patient was seen at bedside this morning sitting up in chair with dressing present over lumbar spine and drain in place. Patient states she has not had any headaches yesterday or today. Patient states states she feels like she has little bit more energy than she did yesterday. She says she did get up with th erapy and was able to take a few steps to the chair. Patient says she has not walked any further but is hoping to progress each day while here. She says when she goes home she says her daughter will help her out as well as her . She says pain is controlled with oral medication. She denies any other issues at this time. Objective - Vital Signs Vital signs: Vital Signs Temp 98.1 F 01/24/25 12:31 Pulse 70 01/24/25 12:31 Resp 17 01/24/25 12:31 BP 131/73 01/24/25 12:31 Pulse Ox 97 01/24/25 06:51 FiO2 Intake & Output 01/23/25 01/24/25 01/24/25 18:59 06:59 18:59 Output Total 525 605 Balance -525 -605 Output: Drainage 75 5 Back 75 5 Urine 450 600 Other: Voiding Method Indwelling Catheter Indwelling Catheter Indwelling Catheter # Bowel Movements 0 - Exam Hemovac drain is in place with moderate serosanguineous output overnight. Keep to half suction at this time. Monitor and record. Postop surgical dressing appears to be clean, dry, intact over the lumbar spine exam. Plan for dressing change tomorrow. Ro in place. Sensation is equal, symmetric, bilaterally intact throughout the upper and lower extremities on exam. Moderate tenderness to palpation over lumbar spine on exam near incision. Nontender on rest of exam. Patient does have some limited range of motion in bilateral hips and kne es secondary referred pain to the low back while resting in bed. Patient has good range of motion throughout bilateral upper extremities on exam. 4-/5 in all major motor groups in bilateral lower extremities. 4+/5 in all major motor groups in bilateral upper extremities. Neurovascular status intact. Radial pulse intact, 2+ bilaterally. Cap refill under 3 seconds in digits of upper extremities. Negative Homans bilaterally. Negative clonus bilaterally. Negative clancy bilaterally. - Labs CBC & Chem 7: 01/23/25 04:06 01/23/25 04:06 Assessment and Plan Assessment: 1. 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 L5-S1 ADJACENT SEGMENT DISEASE WITH COLLAPSE AND STENOSIS S/P L4-5 FUSION 3. LUMBAR STENOSIS WITH RADICULOPATHY 4. LE WEAKNESS 5. LE PARESTHESIAS 6. LOW BACK PAIN Postop day 2 status post revision L3 to S1 decompression and fusion Plan: 1. ADJACENT SEGMENT DISEASE WITH COLLAPSE AND STENOSIS L3-4 S/P L4-5 FUSION; L5- S1 ADJACENT SEGMENT DISEASE WITH COLLAPSE AND STENOSIS S/P L4-5 FUSION; LUMBAR STENOSIS WITH RADICULOPATHY; LE WEAKNESS; LE PARESTHESIAS; LOW BACK PAIN - surgery performed Wednesday01/22/25revision L3-S1 decompression and fusion. Patient stable in chair this morning with dressing in place over lumbar spine. Drain in place with moderate serosanguineous output overnight. Keep to half suction for now. Plan for dressing change tomorrow. Work with PT/OT daily. Maintain Ro for now. Plan for Ro removal and dressing change tomorrow. Weightbearing as tolerated with walker. We will continue to follow patient during her stay in hospital. Discharge planning pending, likely Wednesday 2. Appreciate medical management 3. Pain management -[place]; gabapentin; Flexeril 4. DVT prophylaxis -mechanical 5. GI prophylaxis -senna; milk of mag 6. PT/OT -weightbearing as tolerated with walker 7. Encourage incentive spirometer use 8. Discharge planning -Home with home care Wednesday Time with Patient: Less than 30
--- NOTE | 2025-01-24 14:03 | P.PN ---
Subjective Progress Note Date: 01/24/25 This is a pleasant 74-year-old female with medical history significant for hypertension, diverticulitis. 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 Patient is evaluated today postoperative day #1. White blood cell c ount of 7.67, hemoglobin 8.6, sodium of 137 potassium 4.2, BUN of 8.8 creatinine of 0.7. Patient is afebrile, heart rate is 80 normal sinus rhythm blood pressure 114/68 and currently 93% liters of oxygen via nasal cannula. Patient with no acute complaints. Currently sitting up in the chair and resting comfortably. Fatigue but easily arousable. 01/24/2025 Patient evaluated in follow-up on the medical floor. Chest x-ray completed yesterday does reveal mild vascular congestion. LR will be discontinued. Patient is also had a mild low-grade fever overnight would recommend to continue to encourage incentive spirometer 10 times an hour while awake. She is more awake alert and oriented today sitting up in the chair. States she has not been sleeping well and did finally get sleep last night. Recommend though to hold the Lunesta as she has been groggy. She has the hemovac in place. Urinary catheter in place. REVIEW OF SYSTEMS: CONSTITUTIONAL: No fever, no malaise, no fatigue. H hypertension, osteoarthritis, diverticulitis, mild depression, alcoholism.EENT: No recent visual problems or hearing problems. Denied any sore throat. CARDIOVASCULAR: No chest pain, orthopnea, PND, no palpitations, no syncope. PULMONARY: No shortness of breath, no cough, no hemoptysis. GASTROINTESTINAL: No diarrhea, no nausea, no vomiting, no abdominal pain. NEUROLOGICAL: No headaches, no weakness, no numbness. PHYSICAL EXAMINATION: GENERAL: The patient is alert and oriented x3, not in any acute distress. Well developed, well nourished. HEENT: Pupils are round and equally reacting to light. EOMI. No scleral icterus. No conjunctival pallor. Normocephalic, atraumatic. No pharyngeal erythema. No thyromegaly. CARDIOVASCULAR: S1 and S2 present. No murmurs, rubs, or gallops. PULMONARY: Chest is clear to auscultation, no wheezing or crackles. ABDOMEN: Soft, nontender, nondistended, normoactive bowel sounds. No palpable organomegaly. Hemovac and urinary catheter in place. MUSCULOSKELETAL: No joint swelling or deformity. EXTREMITIES: No cyanosis, clubbing, or pedal edema. NEUROLOGICAL: Gross neurological examination did not reveal any focal deficits. SKIN: No rashes. Assessment revision L3-S1 decompression and fusion secondary to collapse and stenosis of L3-L4 SP L4-5 fusion Hypertension Diverticulitis Hx Degenerative joint disease Hx of back surgery GI prophylaxis DVT prophylaxis as per primary Full Code Plan Discontinue the lactated Ringer's Resume home medications Continue bowel regimen while using narcotics for pain management Encourage incentive spirometer Continue indwelling howard catheter can DC when okayed by primary Stop the Lunesta Limit narcotic use PT/OT consultation The impression and plan of care has been dictated by Stephanie Mendosa Nurse Practitioner as directed. Dr. Jayy MD I have performed a history and physical examination and medical decision making of this patient, discussed the same with the dictator, and agree with the dictators assessment and plan as written, documented as a scribe. Based on total visit time, I have performed more than 50% of this visit. Objective - Vital Signs Vital signs: Vital Signs Temp 100.4 F H 01/24/25 06:51 Pulse 82 01/24/25 06:51 Resp 16 01/24/25 06:51 BP 136/72 01/24/25 06:51 Pulse Ox 97 01/24/25 06:51 FiO2 Intake & Output 01/23/25 01/24/25 01/24/25 18:59 06:59 18:59 Output Total 525 605 Balance -525 -605 Output: Drainage 75 5 Back 75 5 Urine 450 600 Other: Voiding Method Indwelling Catheter Indwelling Catheter # Bowel Movements 0 - Labs CBC & Chem 7: 01/23/25 04:06 01/23/25 04:06 Assessment and Plan Time with Patient: Less than 30
[2025-01-25 07:58] LABS: Basophils # (A) 0.04 X 10*3/uL (0.00-0.10); Basophils % (A) 0.5 %; HCT 26.9 % (37.2-46.3); HGB 8.9 g/dL (12.0-15.0); Lymphocytes # (A) 1.41 X 10*3/uL (0.90-5.00); Lymphocytes % (A) 17.7 %; MCH 31.2 pg (27.0-32.0); MCHC 33.1 g/dL (32.0-37.0); MCV 94.4 FL (80.0-97.0); Mean Platelet Volume 10.3 FL (9.5-12.2); Monocytes # (A) 0.57 X 10*3/uL (0.20-1.00); Monocytes % (A) 7.1 %; NRBC Per 100 WBC 0 X 10*3/uL (0.00-0.01); Neutrophils # (A) 5.52 X 10*3/uL (1.80-7.70); Neutrophils % (A) 69.2 %; Platelet Count 235 X 10*3/uL (140-440); RBC 2.85 X 10*6/uL (4.10-5.20); RDW 12.9 % (11.5-14.5); WBC 7.98 X 10*3/uL (4.50-10.00)
[2025-01-25 08:02] LABS: Blood Urea Nitrogen 6.9 mg/dL (9.0-27.0); Calcium 7.9 mg/dL (8.7-10.3); Carbon Dioxide 23.8 mmol/L (21.6-31.8); Chloride 101 mmol/L (96-109); Glucose 90 mg/dL (70-110); Potassium 3.9 mmol/L (3.5-5.5); Sodium 135 mmol/L (135-145)
[2025-01-25 09:54] VITALS: RESP 18
[2025-01-25 13:31] VITALS: BP 111/66; PULSE 104; TEMP 98.9
--- NOTE | 2025-01-25 15:01 | P.PN ---
Subjective Progress Note Date: 01/25/25 Principal diagnosis: 1. 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 L5-S1 ADJACENT SEGMENT DISEASE WITH COLLAPSE AND STENOSIS S/P L4-5 FUSION 3. LUMBAR STENOSIS WITH RADICULOPATHY 4. LE WEAKNESS 5. LE PARESTHESIAS 6. LOW BACK PAIN Patient was seen at bedside this morning sitting up in chair with dressing and Hemovac drain present over lumbar spine. Ro in place currently. Patient says she has been doing a little bit better every day and did walk out of the hallway with therapy this morning. She says she is hoping to go home later today. She says her daughter will be able to help her out once home as well as her . Patient says the pain in her back is better controlled than it was the first day after surgery. She denies any other issues at this time. Objective - Vital Signs Vital signs: Vital Signs Temp 99.0 F 01/25/25 07:32 Pulse 92 01/25/25 07:32 Resp 18 01/25/25 07:32 BP 149/74 01/25/25 07:32 Pulse Ox 94 L 01/25/25 07:32 FiO2 Intake & Output 01/24/25 01/25/25 01/25/25 18:59 06:59 18:59 Output Total 900 700 900 Balance -900 -700 -900 Output: Urine 900 700 900 Other: Voiding Method Indwelling Catheter Indwelling Catheter Indwelling Catheter - Exam Hemovac drain is in place with minimal output overnight. Hemovac drain removed at bedside this morning. Dressing was changed at bedside. Incision appears to be healing well. Negative for any active drainage. Ama well aligned and intact. Ro in place. Sensation is equal, symmetric, bilaterally intact throughout the upper and lower extremities on exam. Moderate tenderness to palpation over lumbar spine on exam near incision. Nontender on rest of exam. Patient does have some limited range of motion in bilateral hips and knees secondary referred pain to the low back while resting in bed. Patient has good range of motion throughout bilateral upper extremities on exam. 4-/5 in all major motor groups in bilateral lower extremities. 4+/5 in all major motor groups in bilateral upper extremities. Neurovascular status intact. Radial pulse intact, 2+ bilaterally. Cap refill under 3 seconds in digits of upper extremities. Negative Homans bilaterally. Negative clonus bilaterally. Negative clancy bilaterally. - Labs CBC & Chem 7: 01/25/25 03:54 01/25/25 03:54 Labs: Abnormal Lab Results - Last 24 Hours (Table) 01/25/25 01/25/25 Range/Units 03:54 03:54 RBC 2.85 L (4.10-5.20) X 10*6/uL Hgb 8.9 L (12.0-15.0) g/dL Hct 26.9 L (37.2-46.3) % Eosinophils # 0.40 H (0.04-0.35) X 10*3/uL BUN 6.9 L (9.0-27.0) mg/dL BUN/Creatinine Ratio 11.50 L (12.00-20.00) Ratio Calcium 7.9 L (8.7-10.3) mg/dL Assessment and Plan Assessment: 1. 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 L5-S1 ADJACENT SEGMENT DISEASE WITH COLLAPSE AND STENOSIS S/P L4-5 FUSION 3. LUMBAR STENOSIS WITH RADICULOPATHY 4. LE WEAKNESS 5. LE PARESTHESIAS 6. LOW BACK PAIN Postop day 3 status post revision L3 to S1 decompression and fusion Plan: 1. ADJACENT SEGMENT DISEASE WITH COLLAPSE AND STENOSIS L3-4 S/P L4-5 FUSION; L5- S1 ADJACENT SEGMENT DISEASE WITH COLLAPSE AND STENOSIS S/P L4-5 FUSION; LUMBAR STENOSIS WITH RADICULOPATHY; LE WEAKNESS; LE PARESTHESIAS; LOW BACK PAIN -surgery performed Wednesday01/22/25revision L3-S1 decompression and fusion. Patient stable in chair this morning with dressing in place over lumbar spine. Drain in place with minimal serosanguineous output overnight. Hemovac drain removed at bedside. New dressing placed over incision. Work with PT/OT daily. Nursing to remove Ro. Weightbearing as tolerated with walker. Discharge home today with home care. 2. Appreciate medical management 3. Pain management -[place]; gabapentin; Flexeril 4. DVT prophylaxis -mechanical 5. GI prophylaxis -senna; milk of mag 6. PT/OT -weightbearing as tolerated with walker 7. Encourage incentive spirometer use 8. Discharge planning -discharge home today with home care Time with Patient: Less than 30
--- NOTE | 2025-01-25 15:10 | P.DS ---
Providers Date of admission: 01/22/25 06:00 Expected date of discharge: 01/25/25 Attending physician: Sinan Swartz DO Consults: 01/22/25 11:34 Consult Physician Routine Consulting Provider: Leda Bass Consult Reason/Comments: medical management s/p revision L3-S1 decompr fusion Do you want consulting provider notified?: Yes Primary care physician: [facility] Hospital Course: Date of admission: 01/22/2025 Date of discharge: 01/25/2025 Admission diagnosis: 1. 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 L5-S1 ADJACENT SEGMENT DISEASE WITH COLLAPSE AND STENOSIS S/P L4-5 FUSION 3. LUMBAR STENOSIS WITH RADICULOPATHY 4. LE WEAKNESS 5. LE PARESTHESIAS 6. LOW BACK PAIN Discharge diagnosis: Same Attending physician: Dr. Swartz Surgical procedures: Revision L3-S1 decompression and fusion Brief history: Patient is a 74-year-old female with a history of adjacent segment disease with collapse and stenosis L3-S4 status post L4-5 fusion; L5-S1 adjacent segment disease with collapse and stenosis status post L4-5 fusion; lumbar stenosis with radiculopathy; lower extremity weakness and paresthesias; low back pain. At this point patient has failed conservative treatment measures and has opted to proceed with a elective revision L3-S1 decompression fusion. Hospital course: Details of patient's surgery can be found in operative report. Patient tolerated the procedure well and was subsequently transported to orthopedic floor. Patient's orthopeidc and medical care was provided daily. Patient had daily laboratory tests performed for evaluation of overall blood counts. Patient had daily physical therapy to include strengthening range of motion as well as education with walker ambulation. Patient was noted to have a relatively uneventful postoperative course. Patient reported satisfactory pain control with oral pain medications by postoperative day 3. Patient showed satisfactory progress with physical therapy. Patient moved steadily through the program and had no difficulty meeting the goals by postoperative day 3. Given patient's otherwise satisfactory course and having met physical therapy goals, plan is to discharge patient home with home care on postoperative day 3. Discharge condition/disposition: Patient will be discharged with home care in stable condition. Discharge medications: Instructions are given on resumption of patient's normal daily medications per primary care recommendation, in addition patient will be prescribed Faywood; senna; Duricef; gabapentin. Spine Discharge and Recovery Instructions Date of Surgery: 01/25/2025 Diagnosis: 1. 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 L5-S1 ADJACENT SEGMENT DISEASE WITH COLLAPSE AND STENOSIS S/P L4-5 FUSION 3. LUMBAR STENOSIS WITH RADICULOPATHY 4. LE WEAKNESS 5. LE PARESTHESIAS 6. LOW BACK PAIN Procedure: revision L3 to S1 decompression and fusion Medications: See medication list All medication refills should be obtained through your primary care doctor or your clinic spine surgeon. Please discuss prescription refills at your follow up appointment. Do not call the hospital for medication refills. Dressing: Leave your dressing in place for a total of 5 days post operatively. Then you may remove your dressing and leave open to air. Keep the area clean and if not able to keep area clean, then cover with sterile gauze and tape. Showering: You may shower 3 days after your procedure allowing soap and water to run over incision. Do not scrub. Do not soak. Blot dry. Follow up: Please confirm a follow up appointment with your surgeon 3 weeks post operatively. Please make an appointment to follow up with your PCP in 1-2 weeks after surgery for evaluation '3 phase, 3-week plan' POST OP WEEKS 1-3 1. Lifting/carrying/pushing/pulling limited to less than 5 pounds. 2. Do not sit for longer than 15 minutes at one time. Get up and walk around. Prolonged sitting is NOT advised. If you lay down, see if you can tolerate laying down on you front (belly side) 3. Walk for periods of 15 minutes = 1 mile but no longer; do it multiple times times each day. 4. Ice your low back after activity. POST OP WEEKS 3-6 1. Lifting limited to less than 20 pounds. 2. Do not sit for longer than 30 minutes at a time. Frequently change positions. Use a sit-to stand workstation or take frequent breaks from sitting if you have returned to work. 3. Walk for 30 minutes each day. If possible, do these three or more times a day POST OP WEEKS 6+ At your 6-week appointment we will give you a physical therapy referral to focus on a core stabilization and strengthening program. You should also work on leg & buttock strengthening, hamstring & quadriceps stretching, and continue a low impact aerobic activity program such as swimming, walking, or riding a stationary bicycle. During the initial 6 weeks after your surgery, you are at the highest risk of re-injuring your spine. You should generally avoid BLT's (bending, lifting and twisting combination motions) and follow the above guidelines to reduce the chance of reinjury. You can anticipate post op appointments in our office at approximately 3 weeks and 6 weeks after your surgery. INCISION CARE: If your incision is not draining you do NOT need to cover it with a dressing. Keep your incision clean, dry and intact. In most cases, we apply skin glue, raymond or sutures to the incision at the time of surgery. This will be like a crust or have the appearance of a scab and will fall off in time on its own. The stitches or raymond need to be removed at 3 weeks post op appointment. You may begin to shower 3 days after surgery (this allows the glue to giraldo well). However, please avoid scrubbing the incision site or peeling off any of the skin glue. This will ensure optimal healing of your incision. Also, during this time avoid soaking the incision area in water - this includes swimming pools, hot tubs or baths. No ointments, lotions or oils on the incision until your surgeon allows. Leave raymond, sutures or glue in place. Neurological dysfunction that comes on suddenly can also be a sign of a stroke. Below some common symptoms of a stroke are listed: B - balance difficulty such as sudden onset walking or leaning to one side - NEW E - eye problem such as sudden double vision or trouble seeing on one side - NEW F - Facial weakness or numbness on one side - NEW A - Arm or leg weakness or numbness on one side - NEW S - Slurred speech or difficulty with word finding - NEW T - Time is BRAIN! Call 911 as soon as you recognize these symptoms Diet: Consume a regular diet rich in vegetables and lean protein such as chicken or fish. You should consume in a ratio of approximately 20% fats|40% carbohydrates|40%protein. Vegetables, sweet potatoes, brown rice or quinoa are examples of good carbohydrates. Chips, white bread, cookies and sweets/sugar are examples of bad carbohydrates. Limit your bad carbs, go wild with good carbs. "Life's Simple 7" Guidelines as per [place] [employer] These will help you reclaim your life after surgery and syrup mixer helper in your recovery, keeping in mind your restrictions. (1) Get Active. Physical activity can help people lose weight, control high blood pressure and cholesterol, feel emotionally better, and sleep better. (2) Control Cholesterol. Avoid a diet high in saturated fat, trans fat, & cholesterol. Limit whole milk & cream, ice cream, butter, egg yolks, processed meats (like sausage and hot dogs), and fatty meats. Choose healthy foods that are low in saturated fat, trans fat and cholesterol which include: Fruits and vegetables, fiber rich grain products (like whole grain pasta and brown rice), lean meat such as chicken, fish, nuts, seeds, and legumes. (3) Eat Better. Eat small portions. Shop at the grocery with a list and do not stray from it. Tips for a healthy diet include: Limit sodium intake to less than 1500mg daily, avoid prepackaged, processed, and fast foods, choose a diet rich in fruits, vegetables, and whole grain, high fiber foods, and limit saturated & cholesterol in your diet. (4) Manage Blood Pressure. If you have high blood pressure, you should have a cuff at home so that you can check your blood pressure regularly. Be sure you have a good cuff. An arm one is generally better than a wrist one. Bring the cuff to a doctor's appointment to validate that the measurements that your cuff are taking are accurate. Take your blood pressure twice daily when you are sitting down and relaxing. Record the numbers in a log and bring this log with you to your doctors' appointments. (5) Lose Weight if your BMI is above 25. A healthy BMI is between 19-25. To calculate Your BMI, you may use a Standard BMI Calculator on the NIH BMI website: <www.nhlbi.nih.gov/guidelines/obesity/BMI/bmicalc.htm>. Weigh oneself daily. If you are overweight, set a goal to lose weight. A pound a week loss if needed is a good target. (6) Reduce Blood Sugar. Limit foods and liquids with "added sugars." (Added sugars include sucrose, fructose, glucose, maltose, dextrose, high fructose corn syrup, corn syrup, concentrated fruit juice and honey). (7) Stop Smoking. If you smoke, quitting smoking is one of the best things that you can do for your health. Smoking increases your risk of heart attack, stroke, and peripheral vascular disease, which is a build-up of plaque in your arteries. Please discard all the cigarettes and lighters in your house. Have a plan for what you will do when you have the urge to smoke. Direct and second- hand smoke shortens your life as well as the lives of your family, friends and others around you. For your health and the health of those around you, please consider quitting! Proper Bending Body Mechanics: Maintain a wide stance with one foot slightly in front of the other. Keep your back straight. Bend utilizing the strength in your hips and knees. Do not bend at the waist. Maintain the lifted object at your waist-level close to your body. Avoid lifting weight that causes immediately pain or pain anywhere in the body afterwards. Smoking/Nicotine If there was ever one thing that you could do to increase your overall health, decrease your risk of cardiovascular problems by about 39% the second you make the choice, it is to STOP SMOKING. Your body's most instant gratification is the second you stop smoking. We have all heard the studies, read the articles but it is true, smoking is extremely bad for your overall health, and moreover it is detrimental to your bone health. Nicotine, IN ANY FORM, kills bone cells, prevents your body from healing fractures, and significantly prolongs healing after surgery. In spine surgery specifically, it increases your risk of not healing your bones to create a fusion and increases your risk of having a revision surgery due to this up to 60%. I know it is hard. I know it feels impossible. But there are ways. Take control of your life. We are here to help you through it. And when you are ready, ask us and we can direct you to help if you desire. Use the START Plan to Quit Smoking (please visit the Helpguide.org website listed below for more information): S = Set a quit date. Choose a date within the next 2 weeks, so you have enough time to prepare without losing your motivation to quit. If you mainly smoke at work, quit on the weekend, so you have a few days to adjust to the change. T = Tell family, friends, and co-workers that you plan to quit. Let your friends and family in on your plan to quit smoking and tell them you need their support and encouragement to stop. Look for a quit aidan who wants to stop smoking as well. You can help each other get through the rough times. A = Anticipate and plan for the challenges you'll face while quitting. Most people who begin smoking again do so within the first 3 months. You can help yourself make it through by preparing ahead for common challenges, such as nicotine withdrawal and cigarette cravings. R = Remove cigarettes and other tobacco products from your home, car, and work. Throw away all your cigarettes (no emergency pack!), lighters, ashtrays, and matches. Wash your clothes and freshen up anything that smells like smoke. Shampoo your car, clean your drapes and carpet, and steam your furniture. T = Talk to your doctor about getting help to quit. Your doctor can prescribe medication to help with withdrawal and suggest other alternatives. If you can't see a doctor, you can get many products over the counter at your local pharmacy or grocery store, including the nicotine patch, nicotine lozenges, and nicotine gum. Resources for Quitting Smoking: <https://www.[place].gov/documents/[facility]/Quit_Tobacco_Resources_for_patients_313 480_7.pdf> Supplementation: Take recommended dosages of Vitamin D and Calcium to help fortify your bones and help them to heal. See your health maintenance packet for dosages and recommended levels. DVT/VTE prophylaxis: You will be given compression stockings from the hospital. Wear these daily for the first two weeks after surgery. You may take them off at night. You may be prescribed a medication to help thin your blood. Take this as directed. If you are not prescribed this medication, early and frequent ambulation has been shown to be the best prophylaxis to deep vein thrombosis and sequelae related to this event. Assessment: 1. 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 L5-S1 ADJACENT SEGMENT DISEASE WITH COLLAPSE AND STENOSIS S/P L4-5 FUSION 3. LUMBAR STENOSIS WITH RADICULOPATHY 4. LE WEAKNESS 5. LE PARESTHESIAS 6. LOW BACK PAIN Procedures: revision L3 to S1 decompression and fusion Patient Condition at Discharge: Good Plan - Discharge Summary Discharge Rx Participant: No New Discharge Prescriptions: New HYDROcodone/APAP 7.5-325MG [Faywood 7.5-325] 1 tab PO Q6HR PRN #28 tab PRN Reason: Pain cefaDROXiL [Duricef] 500 mg PO Q12HR 5 Days #10 cap Gabapentin [Neurontin] 300 mg PO TID #30 cap Sennosides/Docusate Sodium [Senna Plus 8.6-50 mg Softgel] 1 each PO DAILY #20 capsule No Action Multivitamins, Thera [Multivitamin (formulary)] 1 tab PO DAILY Ipratropium [place] [Ipratropium [place] 0.03%] 2 sprays PO DAILY PRN PRN Reason: Allergy Symptoms lisinopriL [Zestril] 20 mg PO QAM Calcium Carbonate/Vitamin D3 [Calcium 600 mg-D3 10 Mcg (400 Iu)] 1 cap PO DAILY Aspirin [[place] Aspirin EC] 81 mg PO DAILY Nortriptyline [Pamelor] 50 mg PO HS Mv-Min/FA/Vit K/Lutein/Zeaxant [Preservision Areds 2 Plus Mv] 1 cap PO BID Naproxen Sodium [Aleve] 220 mg PO BID PRN PRN Reason: Pain Or Fever > 100.5 Acetaminophen Tab [Tylenol] 650 mg PO Q6HR PRN tab PRN Reason: Mild Pain Or Fever > 100.5 Gabapentin [Neurontin] 300 mg PO QID PRN PRN Reason: Pain Menopause Energy Support 1 tab PO DAILY Melatonin 3 mg PO HS Metoprolol Succinate (ER) [Toprol Xl] 25 mg PO HS Eszopiclone [Lunesta] 3 mg PO HS Ibuprofen 800 mg PO TID PRN PRN Reason: Pain Or Fever > 100.5 Ferrous Sulfate [Iron (65 MG Elemental)] 325 mg PO DAILY Menopuase Sleep Support 1 tab PO HS HYDROcodone/APAP 5-325MG [[place]aywood 5-325] 1 tab PO Q12H PRN PRN Reason: Pain Discharge Medication List Ipratropium [place] [Ipratropium [place] 0.03%] 2 sprays PO DAILY PRN 07/12/17 [History] Multivitamins, Thera [Multivitamin (formulary)] 1 tab PO DAILY 07/12/17 [History] lisinopriL [Zestril] 20 mg PO QAM 07/12/17 [History] Calcium Carbonate/Vitamin D3 [Calcium 600 mg-D3 10 Mcg (400 Iu)] 1 cap PO DAILY 07/13/23 [History] Eszopiclone [Lunesta] 3 mg PO HS 07/13/23 [History] Ibuprofen 800 mg PO TID PRN 12/10/23 [History] Aspirin [[place] Aspirin EC] 81 mg PO DAILY 07/27/24 [History] Ferrous Sulfate [Iron (65 MG Elemental)] 325 mg PO DAILY 07/27/24 [History] Mv-Min/FA/Vit K/Lutein/Zeaxant [Preservision Areds 2 Plus Mv] 1 cap PO BID 07/27/24 [History] Naproxen Sodium [Aleve] 220 mg PO BID PRN 07/27/24 [History] Nortriptyline [Pamelor] 50 mg PO HS 07/27/24 [History] Acetaminophen Tab [Tylenol] 650 mg PO Q6HR PRN tab 07/31/24 [Rx] Gabapentin [Neurontin] 300 mg PO QID PRN 09/19/24 [History] HYDROcodone/APAP 5-325MG [[place]wood 5-325] 1 tab PO Q12H PRN 01/16/25 [History] Melatonin 3 mg PO HS 01/16/25 [History] Menopause Energy Support 1 tab PO DAILY 01/16/25 [History] Menopuase Sleep Support 1 tab PO HS 01/16/25 [History] Metoprolol Succinate (ER) [Toprol Xl] 25 mg PO HS 01/22/25 [History] Gabapentin [Neurontin] 300 mg PO TID #30 cap 01/25/25 [Rx] HYDROcodone/APAP 7.5-325MG [Faywood 7.5-325] 1 tab PO Q6HR PRN #28 tab 01/25/25 [Rx] Sennosides/Docusate Sodium [Senna Plus 8.6-50 mg Softgel] 1 each PO DAILY #20 capsule 01/25/25 [Rx] cefaDROXiL [Duricef] 500 mg PO Q12HR 5 Days #10 cap 01/25/25 [Rx] Follow up Appointment(s)/Referral(s): Micah Moralez,Home Care [NON-STAFF] - 1-2 Days (Micah Moralez will call you to schedule your in home nursing, physical therapy, and occupational therapy visits . ) Sinan Swartz DO [Doctor of Osteopathic Medicine] - 02/07/25 1:45 pm Activity/Diet/Wound Care/Special Instructions: Spine Discharge and Recovery Instructions Date of Surgery: 01/25/2025 Diagnosis: 1. 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 L5-S1 ADJACENT SEGMENT DISEASE WITH COLLAPSE AND STENOSIS S/P L4-5 FUSION 3. LUMBAR STENOSIS WITH RADICULOPATHY 4. LE WEAKNESS 5. LE PARESTHESIAS 6. LOW BACK PAIN Procedure: revision L3 to S1 decompression and fusion Medications: See medication list All medication refills should be obtained through your primary care doctor or your clinic spine surgeon. Please discuss prescription refills at your follow up appointment. Do not call the hospital for medication refills. Dressing: Leave your dressing in place for a total of 5 days post operatively. Then you may remove your dressing and leave open to air. Keep the area clean and if not able to keep area clean, then cover with sterile gauze and tape. Showering: You may shower 3 days after your procedure allowing soap and water to run over incision. Do not scrub. Do not soak. Blot dry. Follow up: Please confirm a follow up appointment with your surgeon 3 weeks post operatively. Please make an appointment to follow up with your PCP in 1-2 weeks after surgery for evaluation '3 phase, 3-week plan' POST OP WEEKS 1-3 1. Lifting/carrying/pushing/pulling limited to less than 5 pounds. 2. Do not sit for longer than 15 minutes at one time. Get up and walk around. Prolonged sitting is NOT advised. If you lay down, see if you can tolerate laying down on you front (belly side) 3. Walk for periods of 15 minutes = 1 mile but no longer; do it multiple times times each day. 4. Ice your low back after activity. POST OP WEEKS 3-6 1. Lifting limited to less than 20 pounds. 2. Do not sit for longer than 30 minutes at a time. Frequently change positions. Use a sit-to stand workstation or take frequent breaks from sitting if you have returned to work. 3. Walk for 30 minutes each day. If possible, do these three or more times a day POST OP WEEKS 6+ At your 6-week appointment we will give you a physical therapy referral to focus on a core stabilization and strengthening program. You should also work on leg & buttock strengthening, hamstring & quadriceps stretching, and continue a low impact aerobic activity program such as swimming, walking, or riding a stationary bicycle. During the initial 6 weeks after your surgery, you are at the highest risk of re-injuring your spine. You should generally avoid BLT's (bending, lifting and twisting combination motions) and follow the above guidelines to reduce the chance of reinjury. You can anticipate post op appointments in our office at approximately 3 weeks and 6 weeks after your surgery. INCISION CARE: If your incision is not draining you do NOT need to cover it with a dressing. Keep your incision clean, dry and intact. In most cases, we apply skin glue, raymond or sutures to the incision at the time of surgery. This will be like a crust or have the appearance of a scab and will fall off in time on its own. The stitches or raymond need to be removed at 3 weeks post op appointment. You may begin to shower 3 days after surgery (this allows the glue to giraldo well). However, please avoid scrubbing the incision site or peeling off any of the skin glue. This will ensure optimal healing of your incision. Also, during this time avoid soaking the incision area in water - this includes swimming pools, hot tubs or baths. No ointments, lotions or oils on the incision until your surgeon allows. Leave raymond, sutures or glue in place. Neurological dysfunction that comes on suddenly can also be a sign of a stroke. Below some common symptoms of a stroke are listed: B - balance difficulty such as sudden onset walking or leaning to one side - NEW E - eye problem such as sudden double vision or trouble seeing on one side - NEW F - Facial weakness or numbness on one side - NEW A - Arm or leg weakness or numbness on one side - NEW S - Slurred speech or difficulty with word finding - NEW T - Time is BRAIN! Call 911 as soon as you recognize these symptoms Diet: Consume a regular diet rich in vegetables and lean protein such as chicken or fish. You should consume in a ratio of approximately 20% fats|40% carbohydrates|40%protein. Vegetables, sweet potatoes, brown rice or quinoa are examples of good carbohydrates. Chips, white bread, cookies and sweets/sugar are examples of bad carbohydrates. Limit your bad carbs, go wild with good c arbs. "Life's Simple 7" Guidelines as per [employer] These will help you reclaim your life after surgery and syrup mixer helper in your recovery, keeping in mind your restrictions. (1) Get Active. Physical activity can help people lose weight, control high blood pressure and cholesterol, feel emotionally better, and sleep better. (2) Control Cholesterol. Avoid a diet high in saturated fat, trans fat, & cholesterol. Limit whole milk & cream, ice cream, butter, egg yolks, processed meats (like sausage and hot dogs), and fatty meats. Choose healthy foods that are low in saturated fat, trans fat and cholesterol which include: Fruits and vegetables, fiber rich grain products (like whole grain pasta and brown rice), lean meat such as chicken, fish, nuts, seeds, and legumes. (3) Eat Better. Eat small portions. Shop at the grocery with a list and do not stray from it. Tips for a healthy diet include: Limit sodium intake to less than 1500mg daily, avoid prepackaged, processed, and fast foods, choose a diet rich in fruits, vegetables, and whole grain, high fiber foods, and limit saturated & cholesterol in your diet. (4) Manage Blood Pressure. If you have high blood pressure, you should have a cuff at home so that you can check your blood pressure regularly. Be sure you have a good cuff. An arm one is generally better than a wrist one. Bring the cuff to a doctor's appointment to validate that the measurements that your cuff are taking are accurate. Take your blood pressure twice daily when you are sitting down and relaxing. Record the numbers in a log and bring this log with you to your doctors' appointments. (5) Lose Weight if your BMI is above 25. A healthy BMI is between 19-25. To calculate Your BMI, you may use a Standard BMI Calculator on the NIH BMI website: <www.nhlbi.nih.gov/guidelines/obesity/BMI/bmicalc.htm>. Weigh oneself daily. If you are overweight, set a goal to lose weight. A pound a week loss if needed is a good target. (6) Reduce Blood Sugar. Limit foods and liquids with "added sugars." (Added sugars include sucrose, fructose, glucose, maltose, dextrose, high fructose corn syrup, corn syrup, concentrated fruit juice and honey). (7) Stop Smoking. If you smoke, quitting smoking is one of the best things that you can do for your health. Smoking increases your risk of heart attack, stroke, and peripheral vascular disease, which is a build-up of plaque in your arteries. Please discard all the cigarettes and lighters in your house. Have a plan for what you will do when you have the urge to smoke. Direct and second- hand smoke shortens your life as well as the lives of your family, friends and others around you. For your health and the health of those around you, please consider quitting! Proper Bending Body Mechanics: Maintain a wide stance with one foot slightly in front of the other. Keep your back straight. Bend utilizing the strength in your hips and knees. Do not bend at the waist. Maintain the lifted object at your waist-level close to your body. Avoid lifting weight that causes immediately pain or pain anywhere in the body afterwards. Smoking/Nicotine If there was ever one thing that you could do to increase your overall health, decrease your risk of cardiovascular problems by about 39% the second you make the choice, it is to STOP SMOKING. Your body's most instant gratification is the second you stop smoking. We have all heard the studies, read the articles but it is true, smoking is extremely bad for your overall health, and moreover it is detrimental to your bone health. Nicotine, IN ANY FORM, kills bone cells, prevents your body from healing fractures, and significantly prolongs healing after surgery. In spine surgery specifically, it increases your risk of not healing your bones to create a fusion and increases your risk of having a revision surgery due to this up to 60 %. I know it is hard. I know it feels impossible. But there are ways. Take control of your life. We are here to help you through it. And when you are ready, ask us and we can direct you to help if you desire. Use the START Plan to Quit Smoking (please visit the Helpguide.org website listed below for more information): S = Set a quit date. Choose a date within the next 2 weeks, so you have enough time to prepare without losing your motivation to quit. If you mainly smoke at work, quit on the weekend, so you have a few days to adjust to the change. T = Tell family, friends, and co-workers that you plan to quit. Let your friends and family in on your plan to quit smoking and tell them you need their support and encouragement to stop. Look for a quit aidan who wants to stop smoking as well. You can help each other get through the rough times. A = Anticipate and plan for the challenges you'll face while quitting. Most people who begin smoking again do so within the first 3 months. You can help yourself make it through by preparing ahead for common challenges, such as nicotine withdrawal and cigarette cravings. R = Remove cigarettes and other tobacco products from your home, car, and work. Throw away all your cigarettes (no emergency pack!), lighters, ashtrays, and matches. Wash your clothes and freshen up anything that smells like smoke. Shampoo your car, clean your drapes and carpet, and steam your furniture. T = Talk to your doctor about getting help to quit. Your doctor can prescribe medication to help with withdrawal and suggest other alternatives. If you can't see a doctor, you can get many products over the counter at your local pharmacy or grocery store, including the nicotine patch, nicotine lozenges, and nicotine gum. Resources for Quitting Smoking: <https://www.[place].gov/documents/[facility]/Quit_Tobacco_Resources_for_patients_313 480_7.pdf> Supplementation: Take recommended dosages of Vitamin D and Calcium to help fortify your bones and help them to heal. See your health maintenance packet for dosages and recommended levels. DVT/VTE prophylaxis: You will be given compression stockings from the hospital. Wear these daily for the first two weeks after surgery. You may take them off at night. You may be prescribed a medication to help thin your blood. Take this as directed. If you are not prescribed this medication, early and frequent ambulation has been shown to be the best prophylaxis to deep vein thrombosis and sequelae related to this event. Discharge Disposition: HOME WITH HOME HEALTH SERVICES
--- NOTE | 2025-01-25 16:27 | P.PN ---
Subjective Progress Note Date: 01/25/25 Interval History: This is a pleasant 74-year-old female with medical history significant for hypertension, diverticulitis. 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 Patient is evaluated today postoperative day #1. White blood cell count of 7.67, hemoglobin 8.6, sodium of 137 potassium 4.2, BUN of 8.8 creatinine of 0.7. Patient is afebrile, heart rate is 80 normal sinus rhythm blood pressure 114/68 and currently 93% liters of oxygen via nasal cannula. Patient with no acute complaints. Currently sitting up in the chair and resting comfortably. Fatigue but easily arousable. 01/24/2025 Patient evaluated in follow-up on the medical floor. Chest x-ray completed yesterday does reveal mild vascular congestion. LR will be discontinued. Patient is also had a mild low-grade fever overnight would recommend to continue to encourage incentive spirometer 10 times an hour while awake. She is more awake alert and oriented today sitting up in the chair. States she has not been sleeping well and did finally get sleep last night. Recommend though to hold the Lunesta as she has been groggy. She has the hemovac in place. Urinary catheter in place. 01/25/25-- Patient was seen and examined today. Patient denies any issues overnight. Pain is controlled. Patient feeling better today. Patient reported working out in the hallway therapy. Passing flatus, no nausea or vomiting. Tolerating p.o. intake. Remains afebrile, heart rate 92, respiratory rate 18, blood pressure 149/74, saturating 94%. WBCs 7.9 hemoglobin 8.9, platelet 235. BMP unremarkable. Assessment and plan: revision L3-S1 decompression and fusion secondary to collapse and stenosis of L3-L4 SP L4-5 fusion Hypertension Diverticulitis Hx Degenerative joint disease Hx of back surgery GI prophylaxis DVT prophylaxis as per primary Full Code Plan Discontinue the lactated Ringer's Resume home medications Continue bowel regimen while using narcotics for pain management Encourage incentive spirometer Continue indwelling howard catheter can DC when okayed by primary Stop the Lunesta Limit narcotic use PT/OT consultation Monitor vital signs and labs Labs and medication were reviewed. Continue same treatment. Further recommendations as per clinical course of the patient PHYSICAL EXAMINATION: GENERAL: The patient is A&O x3, NAD HEENT: EOMI, Sclerae anicteric, Moist Mucous membranes Neck: Supple, Non tender, No JVD PULMONARY: Equal breath souds B/L, No wheezing, No crackles. CARDIOVASCULAR: S1, S2 present. No murmurs, rubs, or gallops. ABDOMEN: Soft, nontender, nondistended, normoactive bowel sounds. No guarding or rebound tenderness. MUSCULOSKELETAL: No edema, No cyanosis. No clubbing. Normal ROM. Intact peripheral pulses. NEUROLOGICAL: CN 2-12 grossly intact. No FND Skin: No Rash REVIEW OF SYSTEMS: CONSTITUTIONAL: No fever or chills. CARDIOVASCULAR: No chest pain, palpitations or syncope. PULMONARY: No shortness of breath, no cough, sore throat. GASTROINTESTINAL: No nausea, vomiting, diarrhea, abdominal pain. : No Dysuria, urgency, frequency. Extremities: No edema. NEUROLOGICAL: No headaches, no weakness, or numbness Dictation was produced using [employer] dictation software. please excuse any g rammatical, word or spelling errors. Objective - Vital Signs Vital signs: Vital Signs Temp 98.9 F 01/25/25 13:29 Pulse 104 H 01/25/25 13:29 Resp 18 01/25/25 14:22 BP 111/66 01/25/25 13:29 Pulse Ox 96 01/25/25 13:38 FiO2 Intake & Output 01/24/25 01/25/25 01/25/25 18:59 06:59 18:59 Output Total 837 [id number] [id number] Balance -900 -700 -1000 Output: Urine 138 [id number] Other: Voiding Method Indwelling Catheter Indwelling Catheter Indwelling Catheter # Voids 1 - Labs CBC & Chem 7: 01/25/25 03:54 01/25/25 03:54 Labs: Abnormal Lab Results - Last 24 Hours (Table) 01/25/25 01/25/25 Range/Units 03:54 03:54 RBC 2.85 L (4.10-5.20) X 10*6/uL Hgb 8.9 L (12.0-15.0) g/dL Hct 26.9 L (37.2-46.3) % Eosinophils # 0.40 H (0.04-0.35) X 10*3/uL BUN 6.9 L (9.0-27.0) mg/dL BUN/Creatinine Ratio 11.50 L (12.00-20.00) Ratio Calcium 7.9 L (8.7-10.3) mg/dL
== END 2025-01-25 16:35 | disposition home health service (06) | DRG 428 ==
LOC: 2ORMAIN 06:00 → 4SSUR 17:34
PROVIDERS: ADMIT Orthopaedic Surgery; ATTEND Orthopaedic Surgery
PROC: 0SG1071 Fusion of 2 or more Lumbar Vertebral Joints with Autologous Tissue Substitute, Posterior Approach, Posterior Column, Open Approach (ICD-10-PCS; 2025-01-22)
PROC: 0SG30AJ Fusion of Lumbosacral Joint with Interbody Fusion Device, Posterior Approach, Anterior Column, Open Approach (ICD-10-PCS; 2025-01-22)
PROC: 0SG3071 Fusion of Lumbosacral Joint with Autologous Tissue Substitute, Posterior Approach, Posterior Column, Open Approach (ICD-10-PCS; 2025-01-22)
PROC: 01NB0ZZ Release Lumbar Nerve, Open Approach (ICD-10-PCS; 2025-01-22)
PROC: 0ST20ZZ Resection of Lumbar Vertebral Disc, Open Approach (ICD-10-PCS; 2025-01-22)
PROC: 0QP004Z Removal of Internal Fixation Device from Lumbar Vertebra, Open Approach (ICD-10-PCS; 2025-01-22)
PROC: 0QS00ZZ Reposition Lumbar Vertebra, Open Approach (ICD-10-PCS; 2025-01-22)
PROC: 00U20KZ Supplement Dura Mater with Nonautologous Tissue Substitute, Open Approach (ICD-10-PCS; 2025-01-22)
PROC: 8E0WXBZ Computer Assisted Procedure of Trunk Region (ICD-10-PCS; 2025-01-22)
PROC: 0SG10AJ Fusion of 2 or more Lumbar Vertebral Joints with Interbody Fusion Device, Posterior Approach, Anterior Column, Open Approach (ICD-10-PCS; principal; 2025-01-22 07:30)
DX: M47.26 Other spondylosis with radiculopathy, lumbar region (principal); I10 Essential (primary) hypertension; M48.062 Spinal stenosis, lumbar region with neurogenic claudication; Z87.19 Personal history of other diseases of the digestive system; Z79.82 Long term (current) use of aspirin; Z79.899 Other long term (current) drug therapy; Z96.611 Presence of right artificial shoulder joint; Z98.1 Arthrodesis status
CPT/HCPCS: 71045; 72100; 72131; 80048; 83880; 85025; 86891